=== PATIENT | male | born 1950 | race African-American/Black ===

== ENCOUNTER → 2020-05-21 | Outpatient (CLI) | payer OTHER ==
[2020-05-21 09:53] LABS: Urine WBC None Seen /hpf (0 - 3)
[2020-05-21 10:04] LABS: Urine Bacteria NONE SEEN /hpf (None Seen); Urine Blood Negative /uL (Negative); Urine Specific Gravity 1.019 (1.001-1.035)
[2020-05-21 10:18] LABS: Basophils # (auto) 0.1 10 ^3/uL (0-0.2); Basophils % (auto) 1.1 % (0.0-2.0); Eosinophils # (auto) 0.1 10 ^3/uL (0-0.8); Eosinophils % (auto) 2.5 % (0.0-7.0); Hematocrit 43.2 % (41.0-53.0); Hemoglobin 14.3 g/dL (13.5-17.5); Lymphocytes # (auto) 1.5 10 ^3/uL (0.4-5.4); Lymphocytes % (auto) 30.3 % (10.0-50.0); Mean Corpuscular Hemoglobin 30.3 pg (28.0-32.0); Mean Corpuscular Hgb Conc. 33.2 g/dL (32.0-36.0); Mean Corpuscular Volume 91.2 fL (80.0-100.0); Monocytes # (auto) 0.5 10 ^3/uL (0-1.3); Monocytes % (auto) 9.4 % (0.0-12.0); Neutrophils # (auto) 2.8 10 ^3/uL (1.6-8.6); Neutrophils % (auto) 56.7 % (37.0-80.0); Nucleated Red Blood Cells % 0.1 %; Platelet Count (auto) 278 10^3/uL (140-450); Red Blood Cells 4.73 10^6/uL (4.5-5.90); Red Cell Distribution Width 14.9 % (11.8-14.3); White Blood Cell 4.9 10^3/uL (4.4-10.8)
[2020-05-21 12:22] LABS: Albumin 3.4 g/dL (3.4-5.0); BUN/Creatinine Ratio 10.7; Calcium 8.6 mg/dL (8.5-10.1); Potassium 4.5 mmol/L (3.5-5.1); Total Protein 7.4 g/dL (6.4-8.2)
== END | disposition home or self-care (01) ==
LOC: LAB 09:38
PROVIDERS: ATTEND Internal Medicine
DX: N40.0 Benign prostatic hyperplasia without lower urinary tract symptoms (principal); I10 Essential (primary) hypertension; F17.200 Nicotine dependence, unspecified, uncomplicated
CPT/HCPCS: 36415; 80053; 80061; 81001; 84153; 84403; 85025

== ENCOUNTER → 2020-06-25 | Outpatient (CLI) | payer OTHER | END | disposition home or self-care (01) | LOC: LAB 15:21 | PROVIDERS: ATTEND Internal Medicine | DX: Z12.11 Encounter for screening for malignant neoplasm of colon (principal); I10 Essential (primary) hypertension | CPT/HCPCS: 36415; 82270; 83036 ==

== ENCOUNTER → 2020-07-24 | Outpatient (CLI) | payer OTHER ==
[2020-07-24 13:23] LABS: Albumin 3.7 g/dL (3.4-5.0)
[2020-07-24 13:28] LABS: Bilirubin, Direct 0.2 mg/dL (0-0.2); Bilirubin, Total 0.6 mg/dL (0.2-1.0)
== END | disposition home or self-care (01) ==
LOC: LAB 12:26
PROVIDERS: ATTEND Internal Medicine
DX: R73.03 Prediabetes (principal)
CPT/HCPCS: 36415; 80076; 82043

== ENCOUNTER → 2020-08-20 | Outpatient (CLI) | payer OTHER | END | disposition home or self-care (01) | LOC: LAB 14:29 | PROVIDERS: ATTEND Urology | DX: N40.0 Benign prostatic hyperplasia without lower urinary tract symptoms (principal); E29.1 Testicular hypofunction | CPT/HCPCS: 84153 ==

== ENCOUNTER 2024-10-14 15:48 | Inpatient (IN) | payer OTHER ==
[~2024-10-14] VITALS: Ht 190.5 cm; Wt 165.5 kg
--- NOTE | 2024-10-14 15:57 | ED.PDOC ---
SOB-HPI HPI Comments 74 year old male ADELINA presents to the ED with chief complaint of SOB. EMS reports that the patient has been experiencing SOB for the past few days, visiting his doctor today for the same complaint. EMS relays that the patient was just diagnosed today with CHF and COPD, not currently on any medication. EMS states patient's BP was noted to be 177/155 at the scene. Patient notes his SOB is worse on exertion. Patient denies any cough, chest pain, N/V, fever, or chills. Patient's BP at arrival was 177/115 with a oxygen saturation rate of 90%. Time Seen by MD: 15:54 Reviewed notes: Nurses Notes, Optimization Manager Notes, Medications, Allergies Information Source: Patient, Emergency Med Personnel Mode of Arrival: EMS Severity: Moderate Timing: Days Duration: Since onset Context: At Rest PE Risk Factors: None History of: COPD, CHF Prehospital treatment: None Modifying Factors: Nothing Associated Signs and Symptoms: None Past Medical History PAST MEDICAL HISTORY: CHF, COPD, HTN Surgical History: Denies all surgeries Family History Family History: Reviewed,noncontributory to illness Social History Smoker: Non-Smoker Alcohol: Denies ETOH Use Drugs: Denies Drug Use Lives In: Home Constitutional: denies: chills, diaphoresis, fatigue, fever, malaise, sweats, w eakness, others EENTM: denies: blurred vision, double vision, ear bleeding, ear discharge, ear drainage, ear pain, ear ringing, eye pain, eye redness, hearing loss, mouth pain, mouth swelling, nasal discharge, nose bleeding, nose congestion, nose pain, photophobia, tearing, throat pain, throat swelling, voice changes, others Respiratory: reports: shortness of breath, SOB with excertion; denies: cough, hemoptysis, orthopnea, SOB at rest, stridor, wheezing, others Cardiovascular: denies: chest pain, dizzy spells, diaphoresis, Dyspnea on exertion, edema, irregular heart beat, left arm pain, lightheadedness, palpitations, PND, syncope, others Gastrointestinal: denies: abdomen distended, abdominal pain, blood streaked bowels, constipated, diarrhea, dysphagia, difficulty swallowing, hematemesis, melena, nausea, poor appetite, poor fluid intake, rectal bleeding, rectal pain, vomiting, others Genitourinary: denies: burning, dysuria, flank pain, frequency, hematuria, incontinence, penile discharge, penile sore, pain, testicle pain, testicle swelling, urgency, others Neurological: denies: dizziness, fainting, headache, left sided numbness, left sided weakness, numbness, paresthesia, pre-existing deficit, right sided numbness, right sided weakness, seizure, speech problems, tingling, tremors, weakness, others Musculoskeletal: denies: back pain, gout, joint pain, joint swelling, muscle pain, muscle stiffness, neck pain, others Integumetry: denies: bruises, change in color, change in hair/nails, dryness, laceration, lesions, lumps, rash, wounds, others Allergic/Immunocompromised: denies: Difficulty Healing, Frequent Infections, Hives, Itching, others Hematologic/Lymphatic: denies: anemia, blood clots, easy bleeding, easy bruising, swollen glands, others Endocrine: denies: excessive hunger, excessive sweating, excessive thirst, excessive urination, flushing, intolerance to cold, intolerance to heat, unexplained weight gain, unexplained weight loss, others Psychiatric: denies: anxiety, bipolar disorder, depression, hopeless, panic disorder, schizophrenia, sleepless, suicidal, others All Other Systems: Reviewed and Negative Physical Exam General Appearance: Moderate Distress (Kiqn-on-ramdyfeb distress due to shortness a breath concerns as well as concerns about blood pressure issues.), Normal HEENT: Normal ENT Inspection, Pharynx Normal, TMs Normal Neck: Full Range of Motion, Non-Tender, Normal, Normal Inspection Respiratory: Chest Non-Tender, Lungs Clear, No Accessory Muscle Use, No Res piratory Distress, Normal Breath Sounds, Other (Auscultation bilateral lung vincent was relatively unremarkable.) Cardiovascular: No Edema, No JVD, No Murmur, No Gallop, Normal Peripheral Pulses, Regular Rate/Rhythm Breast Exam: Deferred Gastrointestinal: No Organomegaly, Non Tender, No Pulsatile Mass, Normal Bowel Sounds, Soft Genitalia: Deferred Pelvic: Deferred Rectal: Deferred Extremities: No calf tenderness, Normal capillary refill, Normal inspection, Normal range of motion, Non-tender, No pedal edema Neurologic: Alert, No Motor Deficits, Normal Affect, Normal Mood, No Sensory Deficits Cerebellar Function: Normal Reflexes: Normal Skin: Dry, Normal Color, Warm Lymphatic: No Adenopathy Was a procedure done? Was a procedure done?: No Differential Dx Differential Diagnosis: Asthma, Bronchitis, CHF, COPD, Hypertension, Hyponatremia, Myocardial infarction, Pneumonia, Pulmonary Embolism, Respiratory Distress, URI X-Ray, Labs, Meds, VS Vital Signs Date Time Temp Pulse Resp B/P (MAP) Pulse Ox O2 Delivery O2 Flow Rate FiO2 10/14/24 18:16 158/94 10/14/24 18:06 85 16 95 Room Air 10/14/24 18:06 98.0 85 16 158/94 (115) 95 98.0 10/14/24 17:59 158/94 10/14/24 16:59 170/108 10/14/24 16:25 90 10/14/24 16:22 20 98 Room Air* 0 21 10/14/24 15:48 98.9 90 18 177/115 (135) 90 98.9 10/14/24 15:48 18 90 Room Air 0 Lab Test 10/14/24 20:10 10/14/24 18:00 10/14/24 16:30 10/14/24 16:15 Range/Units Troponin I High Sensitivity 30 32 37 </=54 ng/L White Blood Count 9.1 4.4-10.8 10^3/uL Red Blood Count 4.74 4.5-5.90 10^6/uL Hemoglobin 14.2 13.5-17.5 g/dL Hematocrit 43.2 41.0-53.0 % Mean Corpuscular Volume 91.1 80.0-100.0 fL Mean Corpuscular Hemoglobin 29.9 28.0-32.0 pg Mean Corpuscular Hemoglobin Concent 32.8 32.0-36.0 g/dL Red Cell Distribution Width 15.7 H 11.8-14.3 % Platelet Count 369 140-450 10^3/uL Mean Platelet Volume 6.7 L 6.9-10.8 fL Neutrophils (%) (Auto) 75.3 37.0-80.0 % Lymphocytes (%) (Auto) 17.0 10.0-50.0 % Monocytes (%) (Auto) 5.6 0.0-12.0 % Eosinophils (%) (Auto) 1.7 0.0-7.0 % Basophils (%) (Auto) 0.4 0.0-2.0 % Neutrophils # (Auto) 6.9 1.6-8.6 10 ^3/uL Lymphocytes # (Auto) 1.5 0.4-5.4 10 ^3/uL Monocytes # (Auto) 0.5 0-1.3 10 ^3/uL Eosinophils # (Auto) 0.2 0-0.8 10 ^3/uL Basophils # (Auto) 0 0-0.2 10 ^3/uL Nucleated Red Blood Cells 0.1 % Sodium Level 138 136-145 mmol/L Potassium Level 4.7 3.5-5.1 mmol/L Chloride Level 104 98-107 mmol/L Carbon Dioxide Level 25 20-31 mmol/L Anion Gap 9 5-15 Blood Urea Nitrogen 27 H 9-23 mg/dL Creatinine 1.26 0.700-1.30 mg/dL Glomerular Filtration Rate Calc 61 >90 mL/min BUN/Creatinine Ratio 21.4 H 10.0-20.0 Serum Glucose 97 74-106 mg/dL Lactic Acid Level 1.7 0.4-2.0 mmol/L Calcium Level 9.6 8.7-10.4 mg/dL Total Bilirubin 0.3 0.2-1.0 mg/dL Aspartate Amino Transferase (AST) 18 13-40 U/L Alanine Aminotransferase (ALT) 14 7-40 U/L Alkaline Phosphatase 143 H 46-116 U/L B-Type Natriuretic Peptide 149.34 0-100 pg/mL Total Protein 8.2 5.7-8.2 g/dL Albumin 4.5 3.2-4.8 g/dL Lipase 44 12-53 U/L Urine Color Colorless Yellow Urine Clarity Clear Clear Urine pH 7.5 5.0-9.0 Urine Specific [place] 1.011 1.001-1.035 Urine Protein Negative Negative Urine Ketones Negative Negative Urine Blood Negative Negative /uL Urine Nitrite Negative Negative Urine Bilirubin Negative Negative Urine Urobilinogen Normal Negative mg/dL Urine Leukocyte Esterase Negative Negative /uL Urine RBC None seen 0 - 3 /hpf Urine Microscopic WBC 1 0-3 /HPF Urine Squamous Epithelial Cells None seen <5 /hpf Urine Bacteria None seen None Seen /hpf Urine Glucose Normal Normal mg/dL Current Medications Medications (Trade) Dose Ordered Sig/Liudmila Route Start Time Stop Time Status Last Admin Albuterol (Ventolin Medneb) 5 mg ONCE ONCE NEB 10/14/24 16:00 10/14/24 16:01 DC 10/14/24 16:22 Ipratropium [place] (Atrovent Medneb) 0.5 mg ONCE ONCE NEB 10/14/24 16:00 10/14/24 16:01 DC 10/14/24 16:22 Dexamethasone Sodium Phosphate 10 mg/Dextrose 51 ml @ 204 mls/hr ONCE ONCE IV 10/14/24 16:00 10/14/24 16:14 DC 10/14/24 17:00 Clonidine HCl (Catapres Tablet) 0.2 mg ONCE ONCE PO 10/14/24 16:00 10/14/24 16:01 DC 10/14/24 16:59 Clonidine HCl (Catapres Tablet) 0.1 mg ONCE ONCE PO 10/14/24 18:15 10/14/24 18:16 DC 10/14/24 18:16 X-Ray, Labs, Meds, VS Comment All studies performed the ED today were evaluated by me personally. Serum results were relatively unremarkable for any systemic process. Chest x-ray did not show signs of consolidation and EKG revealed an ectopic atrial rhythm with a rate of 90. Ventricular premature complex, aberrant conduction of SP complex as well as borderline prolonged QT interval. ID interval 162 and QT interval of 395. Based on patient's recent statements, this patient may require additional evaluation to establish the prior diagnosis of CHF and COPD. Patient was in hypertensive urgency in the least at arrival and therefore, should receive a cardiac evaluation as well as a review of medication concerns and continued observe of of O2 saturation needs. Time of 1ST Reevaluation: 21:12 Reevaluation 1ST: Improved Consultation: PCP, Cardiology, Pulmonary Patient Education/Counseling: Diagnosis, Treatment Family Education/Counseling: Diagnosis, Treatment, No Family Present Departure 1 Departure Time of Disposition: 21:13 Impression: Primary Impression: Shortness of breath Additional Impressions: Hypertensive urgency Congestive heart failure Disposition: 09 ADMITTED INPATIENT Condition: Stable Discharged With: Self Critical Care Note Critical Care Time?: No Stability Stability form required: No Heart Score Heart Score: Heart Score Response (Comments) Value History N/A 0 EKG N/A 0 Age N/A 0 Risk Factors N/A 0 Troponin N/A 0 Total 0 I personally scribed for MANA IGLESIAS PAC ([email or web address]) on 10/14/24 at 15:57. Electronically submitted by Arya Neal ([email or web address]). MANA IGLESIAS [facility] Oct 14, 2024 15:57
[2024-10-14] MEDS: IPRATROPIUM BROM 0.5 MG/2.5ML INH SOL NEB ONE (16:22)
[2024-10-14] MEDS: ALBUTEROL SULF 2.5 MG/0.5ML(0.5%) NEB SOLN NEB ONE (16:22)
[2024-10-14 16:28] LABS: Urine Bacteria None Seen /hpf (None Seen)
--- NOTE | 2024-10-14 16:46 | DVH ---
EXAM: XR Chest, 1 View CLINICAL INDICATION: Shortness of breath TECHNIQUE: Frontal view of the chest. COMPARISON: None FINDINGS: LUNGS AND PLEURAL SPACES: Unremarkable. No consolidation. No pneumothorax. HEART: Unremarkable. No cardiomegaly. MEDIASTINUM: Unremarkable. Normal mediastinal contour. BONES/JOINTS: Unremarkable. No acute fracture. OTHER FINDINGS: . None. IMPRESSION: No acute cardiopulmonary process.
[2024-10-14] MEDS: cloNIDine HCL 0.1 MG TAB PO ONE ×2 (16:59→18:16)
[2024-10-14] MEDS: DexAMETHasone INJECTION 10 MG in D5W 5% 50 ML IV ONE (17:00)
[2024-10-14 17:05] LABS: Basophils # (auto) 0 10 ^3/uL (0-0.2); Basophils % (auto) 0.4 % (0.0-2.0); Eosinophils # (auto) 0.2 10 ^3/uL (0-0.8); Eosinophils % (auto) 1.7 % (0.0-7.0); Hematocrit 43.2 % (41.0-53.0); Hemoglobin 14.2 g/dL (13.5-17.5); Lymphocytes # (auto) 1.5 10 ^3/uL (0.4-5.4); Mean Corpuscular Hemoglobin 29.9 pg (28.0-32.0); Mean Corpuscular Hgb Conc. 32.8 g/dL (32.0-36.0); Mean Corpuscular Volume 91.1 fL (80.0-100.0); Monocytes # (auto) 0.5 10 ^3/uL (0-1.3); Monocytes % (auto) 5.6 % (0.0-12.0); Neutrophils # (auto) 6.9 10 ^3/uL (1.6-8.6); Neutrophils % (auto) 75.3 % (37.0-80.0); Nucleated Red Blood Cells % 0.1 %; Platelet Count (auto) 369 10^3/uL (140-450); Red Blood Cells 4.74 10^6/uL (4.5-5.90); Red Cell Distribution Width 15.7 % (11.8-14.3); White Blood Cell 9.1 10^3/uL (4.4-10.8)
[2024-10-14 17:19] LABS: Urine Blood Negative /uL (Negative); Urine Clarity Clear (Clear); Urine Color Colorless (Yellow); Urine Protein, UAD Negative (Negative); Urine Specific Gravity 1.011 (1.001-1.035); Urine Squamous Epithelial Cell None Seen /hpf (<5); Urine Urobilinogen Normal (Negative); Urine WBC 1 /HPF (0-3); Urine pH 7.5 (5.0-9.0)
[2024-10-14 17:33] LABS: Alanine Aminotransferase 14 U/L (7-40); Albumin 4.5 g/dL (3.2-4.8); Anion Gap 9 (5-15); Aspartate Aminotransferase 18 U/L (13-40); BUN/Creatinine Ratio 21.4 (10.0-20.0); Calcium 9.6 mg/dL (8.7-10.4); Carbon Dioxide 25 mmol/L (20-31); Chloride 104 mmol/L (98-107); Glucose 97 mg/dL (74-106); Lipase 44 U/L (12-53); Potassium 4.7 mmol/L (3.5-5.1); Sodium 138 mmol/L (136-145); Total Protein 8.2 g/dL (5.7-8.2)
[2024-10-14 17:34] LABS: Bilirubin, Total 0.3 mg/dL (0.2-1.0)
[2024-10-14 17:35] LABS: Alkaline Phosphatase 143 U/L (46-116); Blood Urea Nitrogen 27 mg/dL (9-23)
--- NOTE | 2024-10-14 19:01 | ECG ---
[facility] Test Date: 2024-10-14 Test Time: 16:22:02 Pat Name: DAJA DIOR Department: ED Room: 0217T Gender: M Program Administrator: TANNER : 1950 Requested By: MANA IGLESIAS Order Number: [id number] Reading MD: Adrián Wilcox Measurements Intervals [place] Rate: 90 P: -76 ME: 162 QRS: 62 QRSD: 91 T: 44 QT: 395 QTc: 484 Interpretive Statements Ectopic atrial rhythm Ventricular premature complex Aberrant conduction of SV complex(es) Borderline prolonged QT interval Electronically Signed On 10-19-2024 12:39:09 PDT by Adrián Wilcox Please click the below link to view image of tracing.
[2024-10-14] MEDS ORDERED: ACETAMINOPHEN 325 MG TAB PO PRN (22:00)
[2024-10-14] MEDS ORDERED: ONDANSETRON HCL 4 MG/2 ML VIAL IV PRN (22:00)
[2024-10-14] MEDS: LISINOPRIL 5 MG TAB PO ONE (22:00)
[2024-10-14 22:19] LABS: Triglycerides 62 mg/dL (< 150)
[2024-10-14 22:21] LABS: Cholesterol 195 mg/dL (< 200); HDL Cholesterol 74 mg/dL (40-59); LDL Cholesterol 106 mg/dL (< 100)
[2024-10-14 23:02] VITALS: BP 158/94; PULSE 85; RESP 16; TEMP 98; O2SAT 95
[2024-10-14 23:09] VITALS: O2SAT 95
[2024-10-14 23:31] VITALS: PULSE 99
[2024-10-15] VITALS (12 sets, daily range): BP systolic 118–163; BP diastolic 77–101; PULSE 59–108; RESP 15–18; TEMP 97.2–98.7; O2SAT 90–99
[2024-10-15] MEDS: cloNIDine HCL 0.1 MG TAB PO ONE (01:20)
--- NOTE | 2024-10-15 01:41 | DVHHP2 ---
History of Present Illness Reason for Visit: Shortness for breath History of Present Illness 74-year-old male presents for evaluation of shortness for breath. Patient endorses a three day history of shortness for breath with mild exertion. Denies cough or fever. Denies chest pain or palpitations. Patient reports a history o f hypertension and COPD. Patient reports not currently taking any medications. Past Medical History Hypertension and COPD Past Surgical History Denies Family History Noncontributory Smoke: No ALCOHOL: none Drugs: None Lives: with Family Review of Systems Review of Systems Review of systems are currently negative otherwise addressed in HPI. Allergies: Coded Allergies: NO KNOWN ALLERGIES (Unverified , 10/14/24) Medications Current Medications Medications Dose Ordered Sig/Liudmila Route Start Time Stop Time Status Last Admin Dose Admin Lisinopril 10 mg DAILY PO 10/15/24 10:00 Albuterol 2.5 mg Q6HPRN PRN NEB 10/14/24 22:00 Ipratropium [place] 0.5 mg Q6HPRN PRN NEB 10/14/24 22:00 Ondansetron HCl 4 mg Q4HP PRN IV 10/14/24 22:00 Acetaminophen 650 mg Q6HP PRN PO 10/14/24 22:00 Exam Vital Signs Vital Signs Date Time Temp Pulse Resp B/P (MAP) Pulse Ox O2 Delivery O2 Flow Rate FiO2 10/15/24 01:20 163/103 10/15/24 00:15 97.2 101 16 98 97.2 10/14/24 23:31 Nasal Cannula* 3 32 Exam Gen: 74-year-old male in mild distress Skin: Warm, dry, normal color and texture, no rash. HEENT: Normocephalic atraumatic, mucous membranes moist and pink. Neck: Cervical and supraclavicular nodes normal without enlargement, trachea is midline, thyroid gland is normal without masses. Pulmonary: Diminished breath sounds bilaterally Cardiac: Regular rate and rhythm. No murmur Abdomen: Soft, nontender, nondistended, bowel sounds present all 4 quadrants, no guarding, no rigidity, no organomegaly. Extremities: No cyanosis, clubbing, no edema Neuro: Cranial nerves II through XII grossly intact, normal affect and speech, no focal motor deficits. Labs/Xrays ORDERING PHYSICIAN: MANA IGLESIAS PAC PROCEDURE(s): CXRP - CHEST PORTABLE REASON: Shortness of breath ORDER NUMBER(s): [id number], ACCESSION NUMBER(s): [id number] EXAM: XR Chest, 1 View CLINICAL INDICATION: Shortness of breath TECHNIQUE: Frontal view of the chest. COMPARISON: None FINDINGS: LUNGS AND PLEURAL SPACES: Unremarkable. No consolidation. No pneumothorax. HEART: Unremarkable. No cardiomegaly. MEDIASTINUM: Unremarkable. Normal mediastinal contour. BONES/JOINTS: Unremarkable. No acute fracture. OTHER FINDINGS: . None. IMPRESSION: No acute cardiopulmonary process. Labs Test 10/14/24 20:10 10/14/24 18:00 10/14/24 16:30 10/14/24 16:15 Range/Units Troponin I High Sensitivity 30 </=54 ng/L Triglycerides Level 62 < 150 mg/dL Cholesterol Level 195 < 200 mg/dL LDL Cholesterol 106 H < 100 mg/dL HDL Cholesterol 74 H 40-59 mg/dL Thyroid Stimulating Hormone (TSH) 1.75 0.55-4.78 uIU/mL White Blood Count 9.1 4.4-10.8 10^3/uL Red Blood Count 4.74 4.5-5.90 10^6/uL Hemoglobin 14.2 13.5-17.5 g/dL Hematocrit 43.2 41.0-53.0 % Mean Corpuscular Volume 91.1 80.0-100.0 fL Mean Corpuscular Hemoglobin 29.9 28.0-32.0 pg Mean Corpuscular Hemoglobin Concent 32.8 32.0-36.0 g/dL Red Cell Distribution Width 15.7 H 11.8-14.3 % Platelet Count 369 140-450 10^3/uL Mean Platelet Volume 6.7 L 6.9-10.8 fL Neutrophils (%) (Auto) 75.3 37.0-80.0 % Lymphocytes (%) (Auto) 17.0 10.0-50.0 % Monocytes (%) (Auto) 5.6 0.0-12.0 % Eosinophils (%) (Auto) 1.7 0.0-7.0 % Basophils (%) (Auto) 0.4 0.0-2.0 % Neutrophils # (Auto) 6.9 1.6-8.6 10 ^3/uL Lymphocytes # (Auto) 1.5 0.4-5.4 10 ^3/uL Monocytes # (Auto) 0.5 0-1.3 10 ^3/uL Eosinophils # (Auto) 0.2 0-0.8 10 ^3/uL Basophils # (Auto) 0 0-0.2 10 ^3/uL Nucleated Red Blood Cells 0.1 % Sodium Level 138 136-145 mmol/L Potassium Level 4.7 3.5-5.1 mmol/L Chloride Level 104 98-107 mmol/L Carbon Dioxide Level 25 20-31 mmol/L Anion Gap 9 5-15 Blood Urea Nitrogen 27 H 9-23 mg/dL Creatinine 1.26 0.700-1.30 mg/dL Glomerular Filtration Rate Calc 61 >90 mL/min BUN/Creatinine Ratio 21.4 H 10.0-20.0 Serum Glucose 97 74-106 mg/dL Lactic Acid Level 1.7 0.4-2.0 mmol/L Calcium Level 9.6 8.7-10.4 mg/dL Total Bilirubin 0.3 0.2-1.0 mg/dL Aspartate Amino Transferase (AST) 18 13-40 U/L Alanine Aminotransferase (ALT) 14 7-40 U/L Alkaline Phosphatase 143 H 46-116 U/L B-Type Natriuretic Peptide 149.34 0-100 pg/mL Total Protein 8.2 5.7-8.2 g/dL Albumin 4.5 3.2-4.8 g/dL Lipase 44 12-53 U/L Urine Color Colorless Yellow Urine Clarity Clear Clear Urine pH 7.5 5.0-9.0 Urine Specific [place] 1.011 1.001-1.035 Urine Protein Negative Negative Urine Ketones Negative Negative Urine Blood Negative Negative /uL Urine Nitrite Negative Negative Urine Bilirubin Negative Negative Urine Urobilinogen Normal Negative mg/dL Urine Leukocyte Esterase Negative Negative /uL Urine RBC None seen 0 - 3 /hpf Urine Microscopic WBC 1 0-3 /HPF Urine Squamous Epithelial Cells None seen <5 /hpf Urine Bacteria None seen None Seen /hpf Urine Glucose Normal Normal mg/dL Assessment/Plan Assessment/Plan Assessment Acute on chronic respiratory failure COPD Accelerated hypertension Noncompliant Admit the patient to Med surge to the hospitalist Med nebs Resume home medications Continue treatment per orders. Plan discussed with: Patient My Orders Orders - SUZANNA GRIMALDO Procedure Category Date Status Time Lisinopril Tablet PHA 10/15/24 In Process (Zestril Tablet) 10:00 Albuterol Medneb PHA 10/14/24 In Process (Ventolin Medneb) 22:00 Ipratropium Medneb PHA 10/14/24 In Process (Atrovent Medneb) 22:00 Admit ADMIT 10/14/24 Transmitted 21:47 Ondansetron Hcl PHA 10/14/24 In Process (Zofran) 22:00 Cardiac DIET 10/15/24 Transmitted Diet-2gna,Lofat,Lochol Breakfast Echo 2d Mode Cardiac US 10/14/24 Logged DOP 21:47 Condition: Stable PAOLA 10/14/24 In Process 21:47 Acetaminophen Tablet PHA 10/14/24 In Process (Tylenol Tablet) 22:00 Bedrest With Bathroom PAOLA 10/14/24 In Process Privileg 21:47 Basic Metabolic Panel LAB 10/15/24 Logged 04:00 Atorvastatin (Lipitor) PHA 10/15/24 Verified 22:00 Date of Service: Oct 14, 2024 Billing Provider: SUZANNA GRIMALDO Common Visit Codes: [id number] INP/OBS CARE (HIGH) SUZANNA GRIMALDO Oct 15, 2024 01:41
[2024-10-15 06:23] LABS: Chloride 107 mmol/L (98-107); Sodium 141 mmol/L (136-145)
[2024-10-15 06:24] LABS: Anion Gap 10 (5-15); Carbon Dioxide 24 mmol/L (20-31)
[2024-10-15 06:25] LABS: Calcium 9.3 mg/dL (8.7-10.4)
[2024-10-15 06:29] LABS: BUN/Creatinine Ratio 24.3 (10.0-20.0)
[2024-10-15 06:30] LABS: Blood Urea Nitrogen 36 mg/dL (9-23); Glucose 115 mg/dL (74-106)
[2024-10-15] MEDS: LISINOPRIL 5 MG TAB PO SCH (09:13)
[2024-10-15] MEDS: ALBUTEROL SULF 2.5 MG/0.5ML(0.5%) NEB SOLN NEB PRN (09:27)
[2024-10-15] MEDS: IPRATROPIUM BROM 0.5 MG/2.5ML INH SOL NEB PRN (09:28)
--- NOTE | 2024-10-15 12:53 | DVHPN2 ---
Subjective The patient seen and examined at bedside. The patient still wheezing and had shortness for breath. Reviewed: Care Plan, H&P, Labs, Medications, Previous Orders, Radiology Changes from previous H/P or p: No Changes Objective Vitals Vital Signs Date Time Temp Pulse Resp B/P (MAP) Pulse Ox O2 Delivery O2 Flow Rate FiO2 10/15/24 09:34 97 18 98 10/15/24 09:30 Nasal Cannula* 3 32 10/15/24 09:13 142/100 10/15/24 09:00 98.2 98.2 Intake/Output Intake and Output 10/15/24 07:00 Intake Total 200 ml Balance 200 ml Intake Oral 200 ml # Voids 3 # Bowel Movements 2 General Appearance: Alert, Oriented X3, Cooperative, No acute distress HEENT: Atraumatic, PERRLA, EOMI, Mucous membr. moist/pink Neck: Supple Lungs: Clear to auscultation, Normal air movement Cardiovascular: Regular rate, Normal S1, Normal S2, No murmurs, Gallops Abdomen: No Normal bowel sounds; Soft, No tenderness Neuro: Cranial nerves 3-12 NL Psych/Mental Status: Mental status NL Medications Current Medications Medications Dose Ordered Sig/Liudmila Route Start Time Stop Time Status Last Admin Dose Admin Lisinopril 10 mg DAILY PO 10/15/24 10:00 10/15/24 09:13 10 MG Albuterol 2.5 mg Q6HPRN PRN NEB 10/14/24 22:00 10/15/24 09:27 2.5 MG Ipratropium [place] 0.5 mg Q6HPRN PRN NEB 10/14/24 22:00 10/15/24 09:28 0.5 MG Ondansetron HCl 4 mg Q4HP PRN IV 10/14/24 22:00 Acetaminophen 650 mg Q6HP PRN PO 10/14/24 22:00 Atorvastatin Calcium 10 mg HS PO 10/15/24 22:00 Laboratory Results Laboratory Tests 10/14/24 16:30 10/15/24 05:44 Chemistry Test 10/14/24 16:30 10/15/24 05:44 Albumin 4.5 g/dL (3.2-4.8) Calcium Level 9.6 mg/dL (8.7-10.4) 9.3 mg/dL (8.7-10.4) Total Protein 8.2 g/dL (5.7-8.2) Lipid panel Test 10/14/24 16:30 10/14/24 18:00 Lipase 44 U/L (12-53) Cholesterol Level 195 mg/dL (< 200) HDL Cholesterol 74 mg/dL (40-59) H Triglycerides Level 62 mg/dL (< 150) Cardiac Markers Test 10/14/24 16:30 B-Type Natriuretic Peptide 149.34 pg/mL (0-100) LFT Test 10/14/24 16:30 Alanine Aminotransferase (ALT) 14 U/L (7-40) Alkaline Phosphatase 143 U/L (46-116) H Aspartate Amino Transferase (AST) 18 U/L (13-40) Total Bilirubin 0.3 mg/dL (0.2-1.0) HgA1c, TSH Test 10/14/24 18:00 Thyroid Stimulating Hormone (TSH) 1.75 uIU/mL (0.55-4.78) Urinalysis Test 10/14/24 16:15 Urine Color Colorless (Yellow) Urine Clarity Clear (Clear) Urine pH 7.5 (5.0-9.0) Urine Specific [place] 1.011 (1.001-1.035) Urine Protein Negative (Negative) Urine Ketones Negative (Negative) Urine Blood Negative /uL (Negative) Urine Nitrite Negative (Negative) Urine Bilirubin Negative (Negative) Urine Urobilinogen Normal mg/dL (Negative) Urine Leukocyte Esterase Negative /uL (Negative) Urine RBC None seen /hpf (0 - 3) Urine Microscopic WBC 1 /HPF (0-3) Urine Squamous Epithelial Cells None seen /hpf (<5) Urine Bacteria None seen /hpf (None Seen) Urine Glucose Normal mg/dL (Normal) Labs and/or images reviewed: Labs reviewed by me Assessment/Plan Assessment/Plan Acute on chronic respiratory failure COPD Accelerated hypertension Noncompliant Continuing current management. Continuing with nebulizer. I am going to add Solumedrol 60mg IV q 8h and Rocephin 1gm IV qday. Continuing nebulizer Continuing lisinopril This medical document was created using an electronic medical record system with [employer]edim[employer] direct computerized dictation system. Although this document has been carefully reviewed, there may still be some phonetic and typographical errors. These areas are purely typographical due to imperfections of the software programs, and do not reflect any compromise in the patient's medical care. Plan discussed with: Patient Date of Service: Oct 15, 2024 Billing Provider: LIANA NOGUEIRA MD Common Visit Codes: [id number] INP/OBS CARE(HIGH) LIANA NOGUEIRA MD Oct 15, 2024 12:53
[2024-10-15] MEDS ORDERED: NITROGLYCERIN 0.4 MG SL TAB SL PRN ×2 (21:00)
[2024-10-15] MEDS ORDERED: MORPHINE SULFATE INJ 2 MG/ml SYRG IV PRN (21:00)
[2024-10-15] MEDS: MORPHINE SULFATE INJ 2 MG/ml SYRG IV PRN (21:40)
[2024-10-15] MEDS: SODIUM CHLOR 0.9% PF (SALINE LOCK) 10ML VIAL/SYR IV SCH (22:00)
[2024-10-15] MEDS: ATORVASTATIN 20 MG TAB PO SCH (22:42)
--- NOTE | 2024-10-15 23:15 | DVHSR ---
APPROVED REPORT EXAM: LIMITED Two-dimensional and M-mode echocardiogram with Doppler and color Doppler. Blood Pressure: 18/77 mmHg INDICATION ef RISK FACTORS Height: 6'3, Weight: 165 DIMENSIONS LVDd4.4 (3.8-5.7cm)LA (2D)3.9 (1.9-4.0cm)Aortic Root3.8 (2.0-3.7cm) LVDs3.2 (2.5-4.0cm)LA (MM) (1.9-4.0cm)Aortic Cusp Exc1.6 (1.5-2.0cm) EF (%) 50.0 (55-70%)Rt. Atrium4.5 (1.9-4.0cm)Asc. Aorta cm IVSd0.8 (0.7-1.1cm)RV (D)4.7 (1.8-2.4cm) PWd0.9 (0.7-1.1cm) Mitral Valve MitralMitral Stenosis E wave0.50m/sMV Mean GR.mmHg A wave1.04m/sMV Peak GR.mmHg E/A ratio0.52D MVAcm2 DECEL [id number] 1/2 [place] Aortic Valve Aortic ValveAortic Stenosis V11.00m/Addie Mean GR.mmHg V21.12m/Addie Peak GR.5mmHg LVOT Diameter2.3 (1.8-2.4cm)Doppler AVA3.71cm2 Tricuspid Valve TR Velocity3.56m/s [id number] Conclusion MILD LVH AND MILD LV DIASTOLIC DYSFUNCTION LV EF IS 65% AND IS NORMAL MODERATELY CALCIFIED AORTIC LEAFLETS IT IS CALCIFIED AORTIC LEAFLETS BUT NO STENOSIS NORMAL MV,TV AND PV NO EFFUSION MODERATELY DILATED RV AND RA NORMAL RV FUNCTION MODERATE DEGREE PULMONARY HYPERTENSION RVSP IS 54 MM OF HG AND IS MODERATELY HIGH
[2024-10-16] VITALS (15 sets, daily range): BP systolic 126–142; BP diastolic 76–95; PULSE 71–113; RESP 16–22; TEMP 97.5–98.5; O2SAT 91–100
[2024-10-16] MEDS: cefTRIAXone 1GM/50ML D5W 50 ML IV SCH (10:28)
[2024-10-16] MEDS: AZITHROMYCIN 500MG/ 250ML 250 ML IV SCH (10:29)
--- NOTE | 2024-10-16 22:50 | DVHPN2 ---
Subjective The patient seen and examined at bedside. The patient still wheezing and had shortness for breath. Reviewed: Care Plan, H&P, Labs, Medications, Previous Orders, Radiology Changes from previous H/P or p: No Changes Objective Vitals Vital Signs Date Time Temp Pulse Resp B/P (MAP) Pulse Ox O2 Delivery O2 Flow Rate FiO2 10/16/24 21:00 98.3 109 16 126/76 (93) 93 98.3 10/16/24 19:48 Nasal Cannula* 5 40 Intake/Output Intake and Output 10/16/24 07:00 Intake Total 1000 ml Balance 1000 ml Intake Oral 1000 ml # Voids 5 General Appearance: Alert, Oriented X3, Cooperative, No acute distress HEENT: Atraumatic, PERRLA, EOMI, Mucous membr. moist/pink Neck: Supple Lungs: Clear to auscultation, Normal air movement Cardiovascular: Regular rate, Normal S1, Normal S2, No murmurs, Gallops Abdomen: No Normal bowel sounds; Soft, No tenderness Neuro: Cranial nerves 3-12 NL Psych/Mental Status: Mental status NL Medications Current Medications Medications Dose Ordered Sig/Liudmila Route Start Time Stop Time Status Last Admin Dose Admin Lisinopril 10 mg DAILY PO 10/15/24 10:00 10/16/24 08:53 10 MG Albuterol 2.5 mg Q6HPRN PRN NEB 10/14/24 22:00 10/16/24 19:48 2.5 MG Ipratropium [place] 0.5 mg Q6HPRN PRN NEB 10/14/24 22:00 10/16/24 19:48 0.5 MG Ondansetron HCl 4 mg Q4HP PRN IV 10/14/24 22:00 Acetaminophen 650 mg Q6HP PRN PO 10/14/24 22:00 Atorvastatin Calcium 10 mg HS PO 10/15/24 22:00 10/16/24 21:36 10 MG Morphine Sulfate 2 mg Q30M PRN IV 10/15/24 21:00 10/15/24 21:40 2 MG Sodium Chloride 10 ml Q8HR IV 10/15/24 22:00 10/16/24 21:36 10 ML Nitroglycerin 0.4 mg Q5MINP PRN SL 10/15/24 21:00 Ceftriaxone Sodium 50 ml @ 100 mls/hr DAILY@09 IV 10/16/24 10:00 4/20/25 10:28 100 MLS/HR Azithromycin 250 ml @ 125 mls/hr DAILY IV 10/16/24 10:00 10/16/24 10:29 125 MLS/HR Laboratory Results Laboratory Tests 10/14/24 16:30 10/15/24 05:44 Urinalysis Test 10/14/24 16:15 Urine Color Colorless (Yellow) Urine Clarity Clear (Clear) Urine pH 7.5 (5.0-9.0) Urine Specific [place] 1.011 (1.001-1.035) Urine Protein Negative (Negative) Urine Ketones Negative (Negative) Urine Blood Negative /uL (Negative) Urine Nitrite Negative (Negative) Urine Bilirubin Negative (Negative) Urine Urobilinogen Normal mg/dL (Negative) Urine Leukocyte Esterase Negative /uL (Negative) Urine RBC None seen /hpf (0 - 3) Urine Microscopic WBC 1 /HPF (0-3) Urine Squamous Epithelial Cells None seen /hpf (<5) Urine Bacteria None seen /hpf (None Seen) Urine Glucose Normal mg/dL (Normal) Labs and/or images reviewed: Labs reviewed by me Assessment/Plan Assessment/Plan Acute on chronic respiratory failure COPD Accelerated hypertension Noncompliant Continuing current management. Continuing with nebulizer. Continuing Solumedrol 60mg IV q 8h and Rocephin 1gm IV qday. Continuing nebulizer Continuing lisinopril This medical document was created using an electronic medical record system with [employer] direct computerized dictation system. Although this document has been carefully reviewed, there may still be some phonetic and typographical errors. These areas are purely typographical due to imperfections of the software programs, and do not reflect any compromise in the patient's medical care. Plan discussed with: Patient My Orders Orders - LIANA NOGUEIRA MD Procedure Category Date Status Time Ceftriaxone 1gm/50ml PHA 10/16/24 In Process D5w (Rocephin) 10:00 Azithromycin 500mg/ PHA 10/16/24 In Process 250ml (Zithromax 50 10:00 Date of Service: Oct 16, 2024 Billing Provider: LIANA NOGUEIRA MD Common Visit Codes: [id number] INP/OBS CARE(HIGH) LIANA NOGUEIRA MD Oct 16, 2024 22:50
[2024-10-17] VITALS (14 sets, daily range): BP systolic 128–151; BP diastolic 87–98; PULSE 64–113; RESP 16–18; TEMP 36.2; O2SAT 96–99
--- NOTE | 2024-10-17 10:44 | ECG ---
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
--- NOTE | 2024-10-17 11:45 | DVHDS2 ---
Discharge Summary Date of Admission Oct 14, 2024 at 21:47 Labs/Diagnostic Data: Laboratory Results Test 10/15/24 05:44 10/14/24 20:10 10/14/24 18:00 10/14/24 16:30 Sodium Level 141 mmol/L (136-145) Potassium Level 5.0 mmol/L (3.5-5.1) Chloride Level 107 mmol/L (98-107) Carbon Dioxide Level 24 mmol/L (20-31) Anion Gap 10 (5-15) Blood Urea Nitrogen 36 mg/dL (9-23) Creatinine 1.48 mg/dL (0.700-1.30) Glomerular Filtration Rate Calc 50 mL/min (>90) BUN/Creatinine Ratio 24.3 (10.0-20.0) Serum Glucose 115 mg/dL (74-106) Calcium Level 9.3 mg/dL (8.7-10.4) Troponin I High Sensitivity 30 ng/L (</=54) Triglycerides Level 62 mg/dL (< 150) Cholesterol Level 195 mg/dL (< 200) LDL Cholesterol 106 mg/dL (< 100) HDL Cholesterol 74 mg/dL (40-59) Thyroid Stimulating Hormone (TSH) 1.75 uIU/mL (0.55-4.78) White Blood Count 9.1 10^3/uL (4.4-10.8) Red Blood Count 4.74 10^6/uL (4.5-5.90) Hemoglobin 14.2 g/dL (13.5-17.5) Hematocrit 43.2 % (41.0-53.0) Mean Corpuscular Volume 91.1 fL (80.0-100.0) Mean Corpuscular Hemoglobin 29.9 pg (28.0-32.0) Mean Corpuscular Hemoglobin Concent 32.8 g/dL (32.0-36.0) Red Cell Distribution Width 15.7 % (11.8-14.3) Platelet Count 369 10^3/uL (140-450) Mean Platelet Volume 6.7 fL (6.9-10.8) Neutrophils (%) (Auto) 75.3 % (37.0-80.0) Lymphocytes (%) (Auto) 17.0 % (10.0-50.0) Monocytes (%) (Auto) 5.6 % (0.0-12.0) Eosinophils (%) (Auto) 1.7 % (0.0-7.0) Basophils (%) (Auto) 0.4 % (0.0-2.0) Neutrophils # (Auto) 6.9 10 ^3/uL (1.6-8.6) Lymphocytes # (Auto) 1.5 10 ^3/uL (0.4-5.4) Monocytes # (Auto) 0.5 10 ^3/uL (0-1.3) Eosinophils # (Auto) 0.2 10 ^3/uL (0-0.8) Basophils # (Auto) 0 10 ^3/uL (0-0.2) Nucleated Red Blood Cells 0.1 % Lactic Acid Level 1.7 mmol/L (0.4-2.0) Total Bilirubin 0.3 mg/dL (0.2-1.0) Aspartate Amino Transferase (AST) 18 U/L (13-40) Alanine Aminotransferase (ALT) 14 U/L (7-40) Alkaline Phosphatase 143 U/L (46-116) B-Type Natriuretic Peptide 149.34 pg/mL (0-100) Total Protein 8.2 g/dL (5.7-8.2) Albumin 4.5 g/dL (3.2-4.8) Lipase 44 U/L (12-53) Test 10/14/24 16:15 Urine Color Colorless (Yellow) Urine Clarity Clear (Clear) Urine pH 7.5 (5.0-9.0) Urine Specific [place] 1.011 (1.001-1.035) Urine Protein Negative (Negative) Urine Ketones Negative (Negative) Urine Blood Negative /uL (Negative) Urine Nitrite Negative (Negative) Urine Bilirubin Negative (Negative) Urine Urobilinogen Normal mg/dL (Negative) Urine Leukocyte Esterase Negative /uL (Negative) Urine RBC None seen /hpf (0 - 3) Urine Microscopic WBC 1 /HPF (0-3) Urine Squamous Epithelial Cells None seen /hpf (<5) Urine Bacteria None seen /hpf (None Seen) Urine Glucose Normal mg/dL (Normal) Other Laboratory Tests 10/15/24 05:44 10/14/24 16:30 Discharge Statement: "Patient was advised to return to the ER or call 911 if any headaches, dizziness, shortness of breath, chest pain, abdominal pain, bleeding, fevers, or worsening of medical condition. Patient was counseled about treatment plan, medications, possible side effects, patientverbalized understanding. All questions were answered to the best of my ability. This discharge took greater then 30 minutes in planning, reviewing documentation, counseling the patient, and discussing with other team members." ASSESSMENT ASSESSMENT Assessment LIANA NOGUEIRA MD Oct 17, 2024 11:45
[2024-10-17] MEDS ORDERED: ALBUAER3 IN (11:47)
[2024-10-17] MEDS ORDERED: AZIT-74 PO (11:47)
[2024-10-17] MEDS ORDERED: LISI20TA56 PO (11:47)
--- NOTE | 2024-10-17 12:43 | DVHPN2 ---
Subjective The patient seen and examined at bedside. No complaint today Reviewed: Care Plan, H&P, Labs, Medications, Previous Orders, Radiology Changes from previous H/P or p: No Changes Objective Vitals Vital Signs Date Time Temp Pulse Resp B/P (MAP) Pulse Ox O2 Delivery O2 Flow Rate FiO2 10/17/24 10:00 97 Nasal Cannula 3.0 10/17/24 10:00 32 10/17/24 09:14 134/94 10/17/24 09:00 97.7 79 18 97.7 Intake/Output Intake and Output 10/17/24 07:00 Intake Total 950 ml Balance 950 ml Intake Oral 650 ml IV Total 300 ml # Voids 2 General Appearance: Alert, Oriented X3, Cooperative, No acute distress HEENT: Atraumatic, PERRLA, EOMI, Mucous membr. moist/pink Neck: Supple Lungs: Clear to auscultation, Normal air movement Cardiovascular: Regular rate, Normal S1, Normal S2, No murmurs, Gallops Abdomen: No Normal bowel sounds; Soft, No tenderness Neuro: Cranial nerves 3-12 NL Psych/Mental Status: Mental status NL Medications Current Medications Medications Dose Ordered Sig/Liudmila Route Start Time Stop Time Status Last Admin Dose Admin Lisinopril 10 mg DAILY PO 10/15/24 10:00 10/17/24 09:14 10 MG Albuterol 2.5 mg Q6HPRN PRN NEB 10/14/24 22:00 10/16/24 19:48 2.5 MG Ipratropium [place] 0.5 mg Q6HPRN PRN NEB 10/14/24 22:00 10/16/24 19:48 0.5 MG Ondansetron HCl 4 mg Q4HP PRN IV 10/14/24 22:00 Acetaminophen 650 mg Q6HP PRN PO 10/14/24 22:00 Atorvastatin Calcium 10 mg HS PO 10/15/24 22:00 10/16/24 21:36 10 MG Morphine Sulfate 2 mg Q30M PRN IV 10/15/24 21:00 10/15/24 21:40 2 MG Sodium Chloride 10 ml Q8HR IV 10/15/24 22:00 10/17/24 06:10 10 ML Nitroglycerin 0.4 mg Q5MINP PRN SL 10/15/24 21:00 Ceftriaxone Sodium 50 ml @ 100 mls/hr DAILY@09 IV 10/16/24 10:00 10/17/24 09:15 100 MLS/HR Azithromycin 250 ml @ 125 mls/hr DAILY IV 10/16/24 10:00 10/17/24 09:15 125 MLS/HR Laboratory Results Laboratory Tests 10/14/24 16:30 10/15/24 05:44 Urinalysis Test 10/14/24 16:15 Urine Color Colorless (Yellow) Urine Clarity Clear (Clear) Urine pH 7.5 (5.0-9.0) Urine Specific [place] 1.011 (1.001-1.035) Urine Protein Negative (Negative) Urine Ketones Negative (Negative) Urine Blood Negative /uL (Negative) Urine Nitrite Negative (Negative) Urine Bilirubin Negative (Negative) Urine Urobilinogen Normal mg/dL (Negative) Urine Leukocyte Esterase Negative /uL (Negative) Urine RBC None seen /hpf (0 - 3) Urine Microscopic WBC 1 /HPF (0-3) Urine Squamous Epithelial Cells None seen /hpf (<5) Urine Bacteria None seen /hpf (None Seen) Urine Glucose Normal mg/dL (Normal) Labs and/or images reviewed: Labs reviewed by me Assessment/Plan Assessment/Plan Acute on chronic respiratory failure COPD Accelerated hypertension Noncompliant Continuing current management. Continuing with nebulizer. Continuing Solumedrol 60mg IV q 8h and Rocephin 1gm IV qday. Continuing nebulizer Continuing lisinopril The patient belongs to [facility]. I called [facility] and signed out the patient to Dr. Sultana. He asked me to see the patient today and he will resume care tomorrow 10/18/2024 This medical document was created using an electronic medical record system with [employer] direct computerized dictation system. Although this document has been carefully reviewed, there may still be some phonetic and typographical errors. These areas are purely typographical due to imperfections of the software programs, and do not reflect any compromise in the patient's medical care. Plan discussed with: Patient My Orders Orders - LIANA NOGUEIRA MD Procedure Category Date Status Time Discharge DISCHARGE 10/17/24 Transmitted 11:47 Date of Service: Oct 17, 2024 Billing Provider: LIANA NOGUEIRA MD Common Visit Codes: [id number] INP/OBS CARE(HIGH) LIANA NOGUEIRA MD Oct 17, 2024 12:43
[2024-10-17] MEDS: amLODIPine BESYLATE 5 MG TAB PO SCH (13:21)
[2024-10-17] MEDS: DOCUSATE SOD 100 MG CAP PO SCH (17:36)
[2024-10-17] MEDS: hydrALAZINE HCL 20 MG/ML VL IV ONE (17:37)
[2024-10-17] MEDS: POLYETHYLENE GLYCOL 17 GM PWDR PO ONE (18:04)
[2024-10-17] MEDS ORDERED: DOCUSATE SOD 100 MG CAP PO SCH (22:00)
[2024-10-18] VITALS (7 sets, daily range): BP systolic 127–144; BP diastolic 78–92; PULSE 91–103; RESP 18–21; TEMP 98–98.8; O2SAT 92–96
== END 2024-10-18 10:40 | disposition home or self-care (01) | DRG 189 ==
LOC: EDBD 15:48 → ER 15:52 → OVERFLOW 21:47 → CENTRAL 23:59 → TELE-CENTR 10-15 23:19
PROVIDERS: ADMIT Student in an Organized Health Care Education/Training Program; ATTEND Student in an Organized Health Care Education/Training Program
DX: J96.20 Acute and chronic respiratory failure, unspecified whether with hypoxia or hypercapnia (principal); J44.9 Chronic obstructive pulmonary disease, unspecified; I16.0 Hypertensive urgency; I50.9 Heart failure, unspecified; I11.0 Hypertensive heart disease with heart failure; Z91.199 Patient's noncompliance with other medical treatment and regimen due to unspecified reason; Z79.899 Other long term (current) drug therapy
CPT/HCPCS: 36415; 71045; 80048; 80053; 80061; 81001; 83605; 83690; 83880; 84443; 84484; 85025; 93005; 93306; 94640; 96365; G0378; J1100; J7060

== ENCOUNTER 2024-11-21 12:13 | Inpatient (IN) | payer MEDICARE, OTHER ==
[~2024-11-21] VITALS: Ht 177.8 cm; Wt 71.5 kg
[2024-11-21] VITALS (10 sets, daily range): BP systolic 122–193; BP diastolic 81–112; PULSE 87–108; RESP 16–35; TEMP 97.9–99.3; O2SAT 92–100
[~2024-11-21 12:13] MED LIST: ALBUAER3 IN; AZIT-74 PO; LISI20TA56 PO
--- NOTE | 2024-11-21 12:22 | ED.PDOC ---
SOB-HPI HPI Comments 74 y.o male with PMHx of COPD, Asthma, CHF, HTN and TIA, presents to the ED via EMS for a chief complaint of SOB that started one day ago but has progressively worsened and is now associated with substernal chest radiating to his left arm. EMS reports patient's initial SPO2 read 80% RA on scene, placed him on C-PAP and SPO2 increased to 100%. Patient described chest pain as sharp, constant, and rating a 10/10 on the pain scale, however it went down to a 6/10 s/p EMS administrated Nitroglycerin paste. Patient's blood pressure read 152/100 and improved upon ED arrival. Patient denies any fever, chills, nausea, vomiting. Patient does present with bilateral leg swelling. Patient admits to using tobacco and occasionally alcohol. Time Seen by MD: 12:12 Reviewed notes: Nurses Notes, Chipper Feeder Notes, Medications, Allergies Information Source: Patient, Emergency Med Personnel Mode of Arrival: EMS Severity: Moderate Timing: Days (1) Duration: Since onset Context: At Rest PE Risk Factors: None History of: Asthma, COPD Modifying Factors: Nothing Associated Signs and Symptoms: Chest Pain, Leg Swelling Quality: Sharp Radiation: Arm (L) Location: Substernal Past Medical History PAST MEDICAL HISTORY: Asthma, CHF, COPD, HTN, TIA Surgical History: Tonsillectomy Family History Family History: Reviewed,noncontributory to illness Social History Smoker: Cigarettes Alcohol: Occasionally Drugs: Denies Drug Use Lives In: Home Constitutional: denies: chills, diaphoresis, fatigue, fever, malaise, sweats, weakness, others EENTM: denies: blurred vision, double vision, ear bleeding, ear discharge, ear drainage, ear pain, ear ringing, eye pain, eye redness, hearing loss, mouth pain, mouth swelling, nasal discharge, nose bleeding, nose congestion, nose pain, photophobia, tearing, throat pain, throat swelling, voice changes, others Respiratory: reports: SOB at rest, shortness of breath, SOB with excertion; denies: cough, hemoptysis, orthopnea, stridor, wheezing, others Cardiovascular: reports: chest pain; denies: dizzy spells, diaphoresis, Dyspnea on exertion, edema, irregular heart beat, left arm pain, lightheadedness, palpitations, PND, syncope, others Gastrointestinal: denies: abdomen distended, abdominal pain, blood streaked bowels, constipated, diarrhea, dysphagia, difficulty swallowing, hematemesis, melena, nausea, poor appetite, poor fluid intake, rectal bleeding, rectal pain, vomiting, others Genitourinary: denies: burning, dysuria, flank pain, frequency, hematuria, incontinence, penile discharge, penile sore, pain, testicle pain, testicle swelling, urgency, others Neurological: denies: dizziness, fainting, headache, left sided numbness, left sided weakness, numbness, paresthesia, pre-existing deficit, right sided numbness, right sided weakness, seizure, speech problems, tingling, tremors, weakness, others Musculoskeletal: denies: back pain, gout, joint pain, joint swelling, muscle pain, muscle stiffness, neck pain, others Integumetry: denies: bruises, change in color, change in hair/nails, dryness, laceration, lesions, lumps, rash, wounds, others Allergic/Immunocompromised: denies: Difficulty Healing, Frequent Infections, Hives, Itching, others Hematologic/Lymphatic: denies: anemia, blood clots, easy bleeding, easy bruising, swollen glands, others Endocrine: denies: excessive hunger, excessive sweating, excessive thirst, excessive urination, flushing, intolerance to cold, intolerance to heat, unexplained weight gain, unexplained weight loss, others Psychiatric: denies: anxiety, bipolar disorder, depression, hopeless, panic disorder, schizophrenia, sleepless, suicidal, others All Other Systems: Reviewed and Negative Physical Exam General Appearance: Severe Distress, Thin HEENT: Normal ENT Inspection, Pharynx Normal, TMs Normal Neck: Full Range of Motion, Non-Tender, Normal, Normal Inspection Respiratory: Accessory Muscle Use, Chest Non-Tender, Decreased Breath Sounds, Respiratory Distress, Other (The patient is currently on CPAP) Cardiovascular: No Edema, No JVD, No Murmur, No Gallop, Tachycardia Breast Exam: Deferred Gastrointestinal: No Organomegaly, Non Tender, No Pulsatile Mass, Normal Bowel Sounds, Soft Genitalia: Deferred Pelvic: Deferred Rectal: Deferred Extremities: No calf tenderness, Normal capillary refill, Normal inspection, Normal range of motion, Non-tender, No pedal edema Musculoskeletal : Apperance: Normal Neurologic: Alert, hurl shaker II-XII nml as Tested, Motor Weakness, Normal Affect, Normal Mood, No Sensory Deficits Cerebellar Function: Normal Reflexes: Normal Skin: Dry, Normal Color, Warm Lymphatic: No Adenopathy EKG EKG : Pulse Rate (adult): 107 Cardiac Rhythm: ST Was a procedure done? Was a procedure done?: No Differential Dx Differential Diagnosis: Asthma, Bronchitis, CHF, COPD, Pneumonia, Pneumothorax, Respiratory Distress, URI X-Ray, Labs, Meds, VS Vital Signs Date Time Temp Pulse Resp B/P (MAP) Pulse Ox O2 Delivery O2 Flow Rate FiO2 11/21/24 13:19 90 11/21/24 12:38 99.3 103 35 193/112 100 100 99.3 11/21/24 12:30 Bi-Pap+ 100 100 11/21/24 12:29 103 193/112 Facial BiPAP Mask 100 11/21/24 12:22 107 11/21/24 12:21 109 11/21/24 12:18 99.3 109 40 193/112 (139) 97 99.3 11/21/24 12:18 107 11/21/24 12:13 99.3 93 40 162/83 (109) 100 99.3 Lab Test 11/21/24 12:44 11/21/24 12:38 Range/Units White Blood Count 7.8 4.4-10.8 10^3/uL Red Blood Count 4.39 L 4.5-5.90 10^6/uL Hemoglobin 12.7 L 13.5-17.5 g/dL Hematocrit 38.9 L 41.0-53.0 % Mean Corpuscular Volume 88.6 80.0-100.0 fL Mean Corpuscular Hemoglobin 28.8 28.0-32.0 pg Mean Corpuscular Hemoglobin Concent 32.5 32.0-36.0 g/dL Red Cell Distribution Width 15.7 H 11.8-14.3 % Platelet Count 189 140-450 10^3/uL Mean Platelet Volume 6.7 L 6.9-10.8 fL Neutrophils (%) (Auto) 74.0 37.0-80.0 % Lymphocytes (%) (Auto) 18.4 10.0-50.0 % Monocytes (%) (Auto) 6.1 0.0-12.0 % Eosinophils (%) (Auto) 1.1 0.0-7.0 % Basophils (%) (Auto) 0.4 0.0-2.0 % Neutrophils # (Auto) 5.8 1.6-8.6 10 ^3/uL Lymphocytes # (Auto) 1.4 0.4-5.4 10 ^3/uL Monocytes # (Auto) 0.5 0-1.3 10 ^3/uL Eosinophils # (Auto) 0.1 0-0.8 10 ^3/uL Basophils # (Auto) 0 0-0.2 10 ^3/uL Nucleated Red Blood Cells 0.1 % Sodium Level 143 136-145 mmol/L Potassium Level 4.1 3.5-5.1 mmol/L Chloride Level 109 H 98-107 mmol/L Carbon Dioxide Level 24 20-31 mmol/L Anion Gap 10 5-15 Blood Urea Nitrogen 19 9-23 mg/dL Creatinine 1.43 H 0.700-1.30 mg/dL Glomerular Filtration Rate Calc 52 >90 mL/min BUN/Creatinine Ratio 13.3 10.0-20.0 Serum Glucose 108 H 74-106 mg/dL Calcium Level 8.7 8.7-10.4 mg/dL Troponin I High Sensitivity 534 *H </=54 ng/L B-Type Natriuretic Peptide 309.17 0-100 pg/mL Influenza Type A Antigen Negative Negative Influenza Type B Antigen Negative Negative SARS-CoV-2 Antigen (Rapid) Negative NEGATIVE Current Medications Medications (Trade) Dose Ordered Sig/Liudmila Route Start Time Stop Time Status Last Admin Methylprednisolone Sodium Succinate (Solu Medrol) 125 mg ONCE ONCE IV 11/21/24 12:30 11/21/24 12:31 DC 11/21/24 12:27 Aspirin 162 mg ONCE ONCE PO 11/21/24 12:30 11/21/24 12:31 DC 11/21/24 12:28 Chest x-ray is negative. The COVID test as well as influenza a and influenza B are negative The patient's troponin level came back at 534 consistent with possible non STEMI The patient was given Solu-Medrol 125 mg IV push as well as aspirin for his chest pain The CBC and the chemistry panel shows a creatinine of 1.43 but otherwise within normal limits We did contact Dr. Duarte who is the [facility] physician He is aware of the patient's elevated troponin level as well as the chest pain The patient is being admitted at this time Dr. Duarte will consult a dulser at this time The patient is being admitted Images Reviewed?: Images reviewed and evaluated by me Time of 1ST Reevaluation: 12:16 Reevaluation 1ST: Unchanged Patient Education/Counseling: Diagnosis, Treatment, Prognosis Family Education/Counseling: No Family Present Departure 1 Departure Time of Disposition: 14:50 Impression: Primary Impression: Acute respiratory failure Qualified Codes: J96.01 - Acute respiratory failure with hypoxia Additional Impressions: Non-STEMI (non-ST elevated myocardial infarction) Elevated troponin Disposition: ADMITTED INPATIENT Admit to: Tele Condition: Fair Critical Care Note Critical Care Time?: Yes (35 min-critical care time only) Stability Stability form required: Yes Unstable for transfer: Telemetry monitoring (Telemetry monitoring required), ED Physician Assesment (Clinical assesment) Heart Score Heart Score: Heart Score Response (Comments) Value History Moderate Suspicious 1 EKG Repolarization Disturb 1 Age >65 2 Risk Factors >3 or Hx ASHD 2 Troponin >3 x's Normal limit 2 Total 8 I personally scribed for CECILIO MILES MD ([email or web address]) on 11/21/24 at 12:22. Electronically submitted by Alecia Monae ([facility]). CECILIO MILES MD November 21, 2024 12:22
--- NOTE | 2024-11-21 12:22 | ECG ---
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
[2024-11-21] MEDS: methylPREDNISolone SOD SUCC 125 MG/2 ML VL IV ONE (12:27)
[2024-11-21] MEDS: ASPirin 81 mg TAB PO ONE (12:28)
--- NOTE | 2024-11-21 13:04 | DVH ---
CHEST RADIOGRAPH Indication: sob Technique: Single frontal view of the chest was obtained Comparison: None FINDINGS: Lines and Tubes: None Lungs: No focal consolidation. Pleura: No effusion. No pneumothorax. Cardiomediastinal contours: Unremarkable Bones: No acute osseous abnormality. IMPRESSION: 1. No acute cardiopulmonary disease.
[2024-11-21 13:11] LABS: Basophils # (auto) 0 10 ^3/uL (0-0.2); Basophils % (auto) 0.4 % (0.0-2.0); Eosinophils # (auto) 0.1 10 ^3/uL (0-0.8); Eosinophils % (auto) 1.1 % (0.0-7.0); Hematocrit 38.9 % (41.0-53.0); Hemoglobin 12.7 g/dL (13.5-17.5); Lymphocytes # (auto) 1.4 10 ^3/uL (0.4-5.4); Lymphocytes % (auto) 18.4 % (10.0-50.0); Mean Corpuscular Hemoglobin 28.8 pg (28.0-32.0); Mean Corpuscular Hgb Conc. 32.5 g/dL (32.0-36.0); Mean Corpuscular Volume 88.6 fL (80.0-100.0); Monocytes # (auto) 0.5 10 ^3/uL (0-1.3); Monocytes % (auto) 6.1 % (0.0-12.0); Neutrophils # (auto) 5.8 10 ^3/uL (1.6-8.6); Nucleated Red Blood Cells % 0.1 %; Platelet Count (auto) 189 10^3/uL (140-450); Red Blood Cells 4.39 10^6/uL (4.5-5.90); Red Cell Distribution Width 15.7 % (11.8-14.3); White Blood Cell 7.8 10^3/uL (4.4-10.8)
[2024-11-21 13:17] LABS: Potassium 4.1 mmol/L (3.5-5.1); Sodium 143 mmol/L (136-145)
[2024-11-21 13:18] LABS: Anion Gap 10 (5-15); Carbon Dioxide 24 mmol/L (20-31)
--- NOTE | 2024-11-21 13:20 | ECG ---
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
[2024-11-21 13:23] LABS: Calcium 8.7 mg/dL (8.7-10.4); Chloride 109 mmol/L (98-107)
[2024-11-21 13:24] LABS: BUN/Creatinine Ratio 13.3 (10.0-20.0); Blood Urea Nitrogen 19 mg/dL (9-23); Glucose 108 mg/dL (74-106)
[2024-11-21] MEDS ORDERED: NITROGLYCERIN 0.4 MG SL TAB SL PRN (13:30)
[2024-11-21] MEDS ORDERED: MORPHINE SULFATE INJ 2 MG/ml SYRG IV PRN (13:30)
[2024-11-21 13:43] LABS: COVID19 ANTIGEN SOFIA FIA NEGATIVE (NEGATIVE); Rapid Influenza A Negative (Negative); Rapid Influenza B Negative (Negative)
--- NOTE | 2024-11-21 13:45 | DVHHP2 ---
Admitting Diagnosis: sob History of Present Illness HPI 74 M who comes to ER c/o SOB worsening, His o2 sat was 80 via EMS. He was placed on CPAP and BIBA. He will be admitted for acute on chronic respiratory failure and for IV steroids and neb tx. Home Meds Active Scripts Albuterol Sulfate (VENTOLIN KIEL) 90 Mcg Ih, 90 MCG IN Q6HPRN PRN, #1 INH Prov:LIANA NOGUEIRA MD 10/17/24 Azithromycin (Zithromax) 250 Mg Tab, 250 MG PO DAILY, #6 TAB take 2 tablets the first day, then 1 tablet daily after that. Prov:LIANA NOGUEIRA MD 10/17/24 Lisinopril (Lisinopril) 20 Mg Tab, 1 TAB PO DAILY, #30 TAB 5 Refills Prov:LIANA NOGUEIRA MD 10/17/24 Past Medical History Cardiac: CHF, HTN Pulmonary: COPD Central Nervous System: TIA Patient Family History: FH: respiratory disease G8 MOTHER, Hypertension G8 FATHER, Review of Systems Constitutional: No symptom reported Pulmonary/Respiratory: Dyspnea, Cough Cardiovascular: Chest Pain Gastrointestinal: No symptom reported Genitourinary: No symptom reported Musculoskeletal: No symptom reported H&P Exam Vital Signs Vital Signs Date Time Temp Pulse Resp B/P (MAP) Pulse Ox O2 Delivery O2 Flow Rate FiO2 11/21/24 13:19 90 11/21/24 12:38 99.3 35 193/112 100 100 99.3 11/21/24 12:30 Bi-Pap+ General Appeara: Well developed Head Exam: Normal inspection Pulmonary/Respiratory: Decreased breath sounds Cardiovascular/Chest: Regular rate Labs/Xrays Labs Test 11/21/24 13:30 11/21/24 12:44 11/21/24 12:38 Range/Units Blood Gas Specimen Type Arterial Blood Gas Sample Site Right radial Blood Gas Patient Temperature 37.0 Arterial Blood Date Drawn [id number] Arterial Blood pH 7.462 H 7.350-7.450 Arterial Blood Partial Pressure CO2 31.5 L 35.0-48.0 mmHg Arterial Blood Partial Pressure O2 > 533.6 *H 83.0-108.0 mmHg Arterial Blood HCO3 22.0 21.0-28.0 mmol/L Arterial Blood Oxygen Saturation 99.7 H 94.0-98.0 % Arterial Blood Base Excess -1.0 -2.0-3.0 mmol/L Arterial Blood Oxyhemoglobin 98.8 H 94.0-98.0 % Arterial Blood Carboxyhemoglobin 0.2 L 0.5-1.5 % Arterial Blood Methemoglobin 0.7 0.0-1.5 % Cristobal Test Yes Blood Gas Total Hemoglobin 12.90 L 13.5-17.5 g/dL Blood Gas Set Respiration Rate 12.0 Blood Gas Modality Mask - bipap Blood Gas Spontaneous Rate 30 FiO2 % 100.0 Blood Gas EPAP 5 Blood Gas IPAP 12 Blood Gas Critical Value Read Back yes Blood Gas Notified Whom Blood Gas Notified Time [id number] Blood Gas Notified By school cook mirela White Blood Count 7.8 4.4-10.8 10^3/uL Red Blood Count 4.39 L 4.5-5.90 10^6/uL Hemoglobin 12.7 L 13.5-17.5 g/dL Hematocrit 38.9 L 41.0-53.0 % Mean Corpuscular Volume 88.6 80.0-100.0 fL Mean Corpuscular Hemoglobin 28.8 28.0-32.0 pg Mean Corpuscular Hemoglobin Concent 32.5 32.0-36.0 g/dL Red Cell Distribution Width 15.7 H 11.8-14.3 % Platelet Count 189 140-450 10^3/uL Mean Platelet Volume 6.7 L 6.9-10.8 fL Neutrophils (%) (Auto) 74.0 37.0-80.0 % Lymphocytes (%) (Auto) 18.4 10.0-50.0 % Monocytes (%) (Auto) 6.1 0.0-12.0 % Eosinophils (%) (Auto) 1.1 0.0-7.0 % Basophils (%) (Auto) 0.4 0.0-2.0 % Neutrophils # (Auto) 5.8 1.6-8.6 10 ^3/uL Lymphocytes # (Auto) 1.4 0.4-5.4 10 ^3/uL Monocytes # (Auto) 0.5 0-1.3 10 ^3/uL Eosinophils # (Auto) 0.1 0-0.8 10 ^3/uL Basophils # (Auto) 0 0-0.2 10 ^3/uL Nucleated Red Blood Cells 0.1 % Sodium Level 143 136-145 mmol/L Potassium Level 4.1 3.5-5.1 mmol/L Chloride Level 109 H 98-107 mmol/L Carbon Dioxide Level 24 20-31 mmol/L Anion Gap 10 5-15 Blood Urea Nitrogen 19 9-23 mg/dL Creatinine 1.43 H 0.700-1.30 mg/dL Glomerular Filtration Rate Calc 52 >90 mL/min BUN/Creatinine Ratio 13.3 10.0-20.0 Serum Glucose 108 H 74-106 mg/dL Calcium Level 8.7 8.7-10.4 mg/dL Troponin I High Sensitivity 534 *H </=54 ng/L Assessment/Plan Primary Diagnosis 1) Acute on chronic respiratory failure 2) COPD 3) Elevated troponin, demand 4) PAH 5) HTN 6) dCHF plan; admit to tele, IV steroids, nebs q4h, IV ABx, cardio consult, echo last month showed preserved EF with DD, AM labs, o2 to be ordered for home, supportive care Plan discussed with: Other (n) PAZ POTTER MD November 21, 2024 13:45
[2024-11-21] MEDS: ALBUTEROL SULF 2.5 MG/0.5ML(0.5%) NEB SOLN NEB SCH (13:57)
[2024-11-21] MEDS: IPRATROPIUM BROM 0.5 MG/2.5ML INH SOL NEB SCH (13:57)
[2024-11-21] MEDS: AZITHROMYCIN 500MG/ 250ML 250 ML IV SCH (14:27)
--- NOTE | 2024-11-21 15:23 | ECG ---
[facility] Test Date: 2024-11-21 Test Time: 15:22:25 Pat Name: DAJA DIOR Department: ED Room: 0215T Gender: M Ambulatory Services Representative: CAR[place] : 1950 Requested By: CECILIO MILES Order Number: [id number] Reading MD: Adrián Wilcox Measurements Intervals [place] Rate: 97 P: 70 MO: 155 QRS: 42 QRSD: 92 T: 43 QT: 397 QTc: 505 Interpretive Statements Sinus rhythm Probable left atrial enlargement Prolonged QT interval Electronically Signed On 11-27-2024 21:47:44 PDT by Adrián Wilcox Please click the below link to view image of tracing.
[2024-11-21] MEDS: methylPREDNISolone SOD SUCC 125 MG/2 ML VL IV SCH (18:43)
--- NOTE | 2024-11-21 23:59 | DVHINCON2 ---
Date of service: November 21, 2024 Referring Physician Felicia Reason for Consultation Elevated trop History of Present Illness This is a 74 year old male with a PMH of COPD, Asthma, CHF, HTN and TIA brought in by EMS with complaint of SOB that started one day ago, progressively worsened and is now associated with substernal chest radiating to his left arm. EMS reports patient's initial SPO2 read 80% RA on scene, placed him on C-PAP and SPO2 increased to 100%. Patient described chest pain as sharp, constant, and rating a 10/10 on the pain scale. Chest pain decreased to 6/10 s/p EMS administrated Nitroglycerin paste. Patient's blood pressure read 152/100 and improved upon ED arrival. Patient admits to using tobacco and occasionally alcohol. EKG shows tachycardia at 107. Chest x-ray is negative. The COVID test as well as influenza a and influenza B are negative.Troponin level 534. CBC and the chemistry panel shows a creatinine of 1.43 but otherwise within normal limits. The patient was given Solu-Medrol 125 mg IV push as well as aspirin for his chest pain. Patient was admitted to the hospital. I am asked to consult on this patient. Family History: FH: respiratory disease G8 MOTHER, Hypertension G8 FATHER, Allergies: Coded Allergies: NO KNOWN ALLERGIES (Unverified , 10/14/24) Home Meds Active Scripts Albuterol Sulfate (VENTOLIN MDI) 90 Mcg Ih, 90 MCG IN Q6HPRN PRN, #1 INH Prov:LIANA NOGUEIRA MD 10/17/24 Azithromycin (Zithromax) 250 Mg Tab, 250 MG PO DAILY, #6 TAB take 2 tablets the first day, then 1 tablet daily after that. Prov:LIANA NOGUEIRA MD 10/17/24 Lisinopril (Lisinopril) 20 Mg Tab, 1 TAB PO DAILY, #30 TAB 5 Refills Prov:LIANA NOGUEIRA MD 10/17/24 Current Medications Current Medications Medications (Trade) Dose Ordered Sig/Liudmila Route PRN Reason Start Time Stop Time Status Last Admin Nitroglycerin (Ntrostat Sublingual) 0.4 mg Q5MINP PRN SL FOR CHEST PAIN 11/21/24 13:30 Morphine Sulfate 2 mg Q30M PRN IV FOR CHEST PAIN 11/21/24 13:30 Albuterol (Ventolin Medneb) 2.5 mg Q4HR [facility] 11/21/24 14:00 11/21/24 22:36 Ipratropium [place] (Atrovent Medneb) 0.5 mg Q4HR NEB 11/21/24 14:00 11/21/24 22:36 Hydralazine HCl (Apresoline Injection) 10 mg Q4HP PRN IV sbp >160 11/21/24 13:30 Methylprednisolone Sodium Succinate (Solu Medrol) 125 mg Q6HR IV 11/21/24 18:00 11/21/24 18:43 Azithromycin 250 ml @ 125 mls/hr DAILY IV 11/21/24 13:30 11/21/24 14:27 Review of Systems Constitutional: denies: chills, diaphoresis, fatigue, fever, malaise, sweats, weakness, others EENTM: denies: blurred vision, double vision, ear bleeding, ear discharge, ear drainage, ear pain, ear ringing, eye pain, eye redness, hearing loss, mouth pain, mouth swelling, nasal discharge, nose bleeding, nose congestion, nose pain, photophobia, tearing, throat pain, throat swelling, voice changes, others Respiratory: reports: SOB at rest, shortness of breath, SOB with excertion; denies: cough, hemoptysis, orthopnea, stridor, wheezing, others Cardiovascular: reports: chest pain; denies: dizzy spells, diaphoresis, Dyspnea on exertion, edema, irregular heart beat, left arm pain, lightheadedness, palpitations, PND, syncope, others Gastrointestinal: denies: abdomen distended, abdominal pain, blood streaked bowels, constipated, diarrhea, dysphagia, difficulty swallowing, hematemesis, melena, nausea, poor appetite, poor fluid intake, rectal bleeding, rectal pain, vomiting, others Genitourinary: denies: burning, dysuria, flank pain, frequency, hematuria, incontinence, penile discharge, penile sore, pain, testicle pain, testicle swelling, urgency, others Neurological: denies: dizziness, fainting, headache, left sided numbness, left sided weakness, numbness, paresthesia, pre-existing deficit, right sided numbness, right sided weakness, seizure, speech problems, tingling, tremors, weakness, others Musculoskeletal: denies: back pain, gout, joint pain, joint swelling, muscle pain, muscle stiffness, neck pain, others Integumetry: denies: bruises, change in color, change in hair/nails, dryness, laceration, lesions, lumps, rash, wounds, others Allergic/Immunocompromised: denies: Difficulty Healing, Frequent Infections, Hives, Itching, others Hematologic/Lymphatic: denies: anemia, blood clots, easy bleeding, easy bruising, swollen glands, others Endocrine: denies: excessive hunger, excessive sweating, excessive thirst, excessive urination, flushing, intolerance to cold, intolerance to heat, unexplained weight gain, unexplained weight loss, others Psychiatric: denies: anxiety, bipolar disorder, depression, hopeless, panic disorder, schizophrenia, sleepless, suicidal, others All Other Systems: Reviewed and Negative Vital Signs Vital Signs Date Time Temp Pulse Resp B/P (MAP) Pulse Ox O2 Delivery O2 Flow Rate FiO2 11/21/24 22:44 102 18 100 11/21/24 22:36 Oxymizer 6.0 11/21/24 22:36 N/A 11/21/24 19:45 97.9 122/81 (95) 97.9 Physical Exam GENERAL: Alert and oriented x 3. No acute distress. EYES: PERRL, EOMI. Anicteric. HENT: Moist mucous membranes. LUNGS: Decreased breath sounds. CARDIOVASCULAR: Regular rate and rhythm. ABDOMEN: Soft, non-tender and non-distended. EXTREMITIES: BLE edema. NEUROLOGIC: No focal neurological deficits. SKIN: Warm, dry. Labs/Diagnostic Data Labs Test 11/21/24 15:38 11/21/24 13:30 11/21/24 12:44 11/21/24 12:38 Range/Units Troponin I High Sensitivity 402 *H </=54 ng/L Blood Gas Specimen Type Arterial Blood Gas Sample Site Right radial Blood Gas Patient Temperature 37.0 Arterial Blood Date Drawn [id number] Arterial Blood pH 7.462 H 7.350-7.450 Arterial Blood Partial Pressure CO2 31.5 L 35.0-48.0 mmHg Arterial Blood Partial Pressure O2 > 533.6 *H 83.0-108.0 mmHg Arterial Blood HCO3 22.0 21.0-28.0 mmol/L Arterial Blood Oxygen Saturation 99.7 H 94.0-98.0 % Arterial Blood Base Excess -1.0 -2.0-3.0 mmol/L Arterial Blood Oxyhemoglobin 98.8 H 94.0-98.0 % Arterial Blood Carboxyhemoglobin 0.2 L 0.5-1.5 % Arterial Blood Methemoglobin 0.7 0.0-1.5 % Cristobal Test Yes Blood Gas Total Hemoglobin 12.90 L 13.5-17.5 g/dL Blood Gas Set Respiration Rate 12.0 Blood Gas Modality Mask - bipap Blood Gas Spontaneous Rate 30 FiO2 % 100.0 Blood Gas EPAP 5 Blood Gas IPAP 12 Blood Gas Critical Value Read Back yes Blood Gas Notified Whom Blood Gas Notified Time [id number] Blood Gas Notified By rn employee health mirela White Blood Count 7.8 4.4-10.8 10^3/uL Red Blood Count 4.39 L 4.5-5.90 10^6/uL Hemoglobin 12.7 L 13.5-17.5 g/dL Hematocrit 38.9 L 41.0-53.0 % Mean Corpuscular Volume 88.6 80.0-100.0 fL Mean Corpuscular Hemoglobin 28.8 28.0-32.0 pg Mean Corpuscular Hemoglobin Concent 32.5 32.0-36.0 g/dL Red Cell Distribution Width 15.7 H 11.8-14.3 % Platelet Count 189 140-450 10^3/uL Mean Platelet Volume 6.7 L 6.9-10.8 fL Neutrophils (%) (Auto) 74.0 37.0-80.0 % Lymphocytes (%) (Auto) 18.4 10.0-50.0 % Monocytes (%) (Auto) 6.1 0.0-12.0 % Eosinophils (%) (Auto) 1.1 0.0-7.0 % Basophils (%) (Auto) 0.4 0.0-2.0 % Neutrophils # (Auto) 5.8 1.6-8.6 10 ^3/uL Lymphocytes # (Auto) 1.4 0.4-5.4 10 ^3/uL Monocytes # (Auto) 0.5 0-1.3 10 ^3/uL Eosinophils # (Auto) 0.1 0-0.8 10 ^3/uL Basophils # (Auto) 0 0-0.2 10 ^3/uL Nucleated Red Blood Cells 0.1 % Sodium Level 143 136-145 mmol/L Potassium Level 4.1 3.5-5.1 mmol/L Chloride Level 109 H 98-107 mmol/L Carbon Dioxide Level 24 20-31 mmol/L Anion Gap 10 5-15 Blood Urea Nitrogen 19 9-23 mg/dL Creatinine 1.43 H 0.700-1.30 mg/dL Glomerular Filtration Rate Calc 52 >90 mL/min BUN/Creatinine Ratio 13.3 10.0-20.0 Serum Glucose 108 H 74-106 mg/dL Calcium Level 8.7 8.7-10.4 mg/dL B-Type Natriuretic Peptide 309.17 0-100 pg/mL Influenza Type A Antigen Negative Negative Influenza Type B Antigen Negative Negative SARS-CoV-2 Antigen (Rapid) Negative NEGATIVE Assessment Acute on chronic respiratory failure. COPD. Elevated troponin. PAH. HTN. CHF. Plan/Recommendation I agree with your ongoing assessment and care of plan. IV antibiotics as ordered. IV Hydralazine for SBP >160. Morphine for pain. Nitro SL. Trend troponin. Additional plan as per the hospital course. A total of 45 minutes was spent reviewing the patient record, examining the patient, making a diagnostic and therapeutic plan, discussing this plan with medical personnel, following up on diagnostic studies and following the patient for clinical stability excluding any and all procedures. At least 50% of this time was spent in direct, [id number] contact. Plan discussed with: Patient ARYA WELLS MD November 21, 2024 23:59
[2024-11-22] VITALS (16 sets, daily range): BP systolic 139–164; BP diastolic 88–115; PULSE 77–103; RESP 16–20; TEMP 36.8; O2SAT 92–100
[2024-11-22] MEDS: hydrALAZINE HCL 20 MG/ML VL IV PRN (05:19)
[2024-11-22] MEDS ORDERED: ALBU108A5 IN (07:16)
[2024-11-22] MEDS ORDERED: METH4PAK PO (07:16)
[2024-11-22] MEDS ORDERED: LEVO500T91 PO (07:16)
--- NOTE | 2024-11-22 07:22 | DVHDS2 ---
New Physician D'charge PN Admitting Diagnosis Admitting Diagnosis copd Discharge Diagnosis copd exacerbation elevated troponin, demand Operations or Procedures none Reason(s) For Hospitalization Surgery Hospital Course 74 M who comes to ER c/o SOB that worsened over the last few days. He has known hx of COPD and was BIBA on CPAP. He was admitted for COPD exacerbation and CXR was clear, WBC was nml and chem panel was also nml except for a slightly elevated Cr of 1.4. He was admitted and started on IV Abx, IV steroids and around the clock nebs. Eventually he was weaned off the CPAP and now on 3-4L o2 via NC with sats >90%. He was seen by cardiology for troponin of 500 and it was deemed to be due to demand in the setting of COPD respiratory failure, He had an echo done last month which revealed preserved EF and diastolic dysfunction with pulmonary HTN. He will be discharged home today with home o2 and scripts for PO Abx, medrol dose jessica and albuterol inhaler. [facility] to arrange for home o2 and all outpt follow up. Treatment Plan Discharge Condition of Discharge Good Disposition Home Discharge Instructions Diet: Cardiac 2g Na,low cholest Activity: Light activity Medications: see med sheet Follow Up Care Follow Up/Referral: pcp pulm Discharge Statement: "Patient was advised to return to the ER or call 911 if any headaches, dizziness, shortness of breath, chest pain, abdominal pain, bleeding, fevers, or worsening of medical condition. Patient was counseled about treatment plan, medications, possible side effects, patientverbalized understanding. All questions were answered to the best of my ability. This discharge took greater then 30 minutes in planning, reviewing documentation, counseling the patient, and discussing with other team members." PAZ POTTER MD November 22, 2024 07:22
--- NOTE | 2024-11-22 11:14 | DVHPN2 ---
Progress Note - Dictate Date Seen: November 22, 2024 Medical Necessity Reason Pt with a Central, PICC or Fol: No Subjective Patient was seen and evaluated in follow up. Patient is complaining of SOB, he is on 5 LPM NC. CBC and CMP are pending. Awaiting home oxygen to be delivered. Patient is cardiac stable for discharge. Telemetry reviewed. vital signs Vital Sign Date Time Temp Pulse Resp B/P (MAP) Pulse Ox O2 Delivery O2 Flow Rate FiO2 11/22/24 10:34 36.8 11/22/24 09:16 81 20 156/88 (110) 92 11/22/24 08:00 Nasal Cannula* 5 40 Total Intake and Output 11/21/24 11/21/24 11/22/24 15:00 23:00 07:00 Intake Total 100 ml Balance 100 ml medications Current Medications Medications Dose Ordered Sig/Liudmila Route Start Time Stop Time Status Last Admin Dose Admin Nitroglycerin 0.4 mg Q5MINP PRN SL 11/21/24 13:30 Morphine Sulfate 2 mg Q30M PRN IV 11/21/24 13:30 Albuterol 2.5 mg Q4HR NEB 11/21/24 14:00 11/22/24 07:15 2.5 MG Ipratropium [place] 0.5 mg Q4HR NEB 11/21/24 14:00 11/22/24 07:15 0.5 MG Hydralazine HCl 10 mg Q4HP PRN IV 11/21/24 13:30 11/22/24 05:19 10 MG Methylprednisolone Sodium Succinate 125 mg Q6HR IV 11/21/24 18:00 11/22/24 06:19 125 MG Azithromycin 250 ml @ 125 mls/hr DAILY IV 11/21/24 13:30 11/22/24 09:29 125 MLS/HR objective GENERAL: Alert and oriented x 3. No acute distress. EYES: PERRL, EOMI. Anicteric. HENT: Moist mucous membranes. LUNGS: Decreased breath sounds. CARDIOVASCULAR: Regular rate and rhythm. ABDOMEN: Soft, non-tender and non-distended. EXTREMITIES: BLE edema. NEUROLOGIC: No focal neurological deficits. SKIN: Warm, dry. laboratory and microbiology Test 11/22/24 08:15 Range/Units Serum Glucose Pending Problem List Acute on chronic respiratory failure. COPD. Elevated troponin. PAH. HTN. CHF. Assessment/Plan Continued all current supportive medical care. IV antibiotics as ordered. IV Hydralazine for SBP >160. Morphine for pain. Nitro SL. Additional plan as per the hospital course. Plan discussed with: Patient ARYA WELLS MD November 22, 2024 11:14
[2024-11-22 11:31] LABS: Chloride 106 mmol/L (98-107); Hematocrit 41.7 % (41.0-53.0); Hemoglobin 13.4 g/dL (13.5-17.5); Mean Corpuscular Hemoglobin 29.3 pg (28.0-32.0); Mean Corpuscular Hgb Conc. 32.1 g/dL (32.0-36.0); Mean Corpuscular Volume 91.3 fL (80.0-100.0); Platelet Count (auto) 190 10^3/uL (140-450); Potassium 4.4 mmol/L (3.5-5.1); Red Blood Cells 4.57 10^6/uL (4.5-5.90); Red Cell Distribution Width 15.8 % (11.8-14.3); Sodium 141 mmol/L (136-145); White Blood Cell 10.8 10^3/uL (4.4-10.8)
[2024-11-22 11:32] LABS: Anion Gap 11 (5-15); Carbon Dioxide 24 mmol/L (20-31)
[2024-11-22 11:37] LABS: BUN/Creatinine Ratio 16.3 (10.0-20.0); Blood Urea Nitrogen 21 mg/dL (9-23)
[2024-11-22 11:38] LABS: Glucose 239 mg/dL (74-106)
[2024-11-22 11:51] LABS: Band Neutrophils % (manual) 0; Basophils % (manual) 0 (0.0-2.0); Blast Cells 0; Eosinophils % (manual) 0 (0-7); Metamyelocytes % 0; Myelocytes % 0; Promyelocytes % 0; Reactive Lymphocytes 0
[2024-11-22 12:32] LABS: Lymphocytes % (manual) 3 (10.0-50.0); Monocytes % (manual) 4 (0-12); Platelet Estimate Adequate
[2024-11-24] MEDS ORDERED: REGADENOSON 0.4 MG/5 ML SYRG IV ONE (08:53)
== END 2024-11-22 18:24 | disposition home or self-care (01) | DRG 280 ==
LOC: EDBD 12:13 → ER 12:19 → OVERFLOW 13:21 → TELE-CENTR 18:56
PROVIDERS: ADMIT Internal Medicine; ATTEND Internal Medicine
PROC: 5A09357 Assistance with Respiratory Ventilation, Less than 24 Consecutive Hours, Continuous Positive Airway Pressure (ICD-10-PCS; principal; 2024-11-21)
DX: I11.0 Hypertensive heart disease with heart failure (principal); I50.33 Acute on chronic diastolic (congestive) heart failure; I21.A1 Myocardial infarction type 2; J96.01 Acute respiratory failure with hypoxia; J44.1 Chronic obstructive pulmonary disease with (acute) exacerbation; I27.20 Pulmonary hypertension, unspecified; F17.210 Nicotine dependence, cigarettes, uncomplicated; Z86.73 Personal history of transient ischemic attack (TIA), and cerebral infarction without residual deficits; Z82.49 Family history of ischemic heart disease and other diseases of the circulatory system; Z79.2 Long term (current) use of antibiotics; Z79.899 Other long term (current) drug therapy
CPT/HCPCS: 36415; 36600; 71045; 80048; 82805; 83880; 84484; 85007; 85025; 85027; 87426; 87804; 93005; 94640; 94660; 99291; G0378

== ENCOUNTER 2024-12-11 15:58 | Emergency (ER) | payer OTHER ==
[~2024-12-11] VITALS: Ht 182.9 cm; Wt 68.0 kg
[~2024-12-11 15:58] MED LIST changes: +ALBU108A5 IN; -AZIT-74 PO; +LEVO500T91 PO; +METH4PAK PO
--- NOTE | 2024-12-11 16:11 | ED.PDOC ---
History of Present Illness HPI Comments 74 y.o male with PMHx of COPD, CHF, and early onset dementia, presents to the ED via EMS for an evaluation of generalized weakness. Patient reports driving to the store last night, got back home and revered his car into his driveway but was unable to get out due to weakness. Patient reports sleeping in his car all night up until EMS arrived s/p neighbors calling 911 around [phone]. While assisting patient out of the car, EMS noted he was dizzy but resolved when he got onto the gurney. Patient denies any chest pain, SOB, nausea, vomiting, recent illness, fever or chills. Vitals signs were stable on scene and on scene. Patient mentions taking no medications at this time. Time Seen by MD: 16:03 Reviewed Notes: Nurses Notes, Prosthetic Aides Teacher Notes, Medications, Allergies Allergies: Coded Allergies: NO KNOWN ALLERGIES (Unverified , 10/14/24) Home Meds Active Scripts Albuterol Sulfate (Albuterol Sulfate Hfa) 108 Mcg/Act Aer, 108 MCG IN Q4HPRN PRN, #1 AER Prov:PAZ POTTER MD 11/22/24 Levofloxacin Hemihydrate (LEVAQUIN 500 MG) 500 Mg Tab, 1 TAB PO DAILY, #7 TAB Prov:PAZ POTTER MD 11/22/24 Methylprednisolone (Medrol Dosepak) 4 Mg Vladimir, 4 MG PO UD, #21 TAB UAD Prov:PAZ POTTER MD 11/22/24 Albuterol Sulfate (VENTOLIN MDI) 90 Mcg Ih, 90 MCG IN Q6HPRN PRN, #1 INH Prov:LIANA NOGUEIRA MD 10/17/24 Lisinopril (Lisinopril) 20 Mg Tab, 1 TAB PO DAILY, #30 TAB 5 Refills Prov:LIANA NOGUEIRA MD 10/17/24 Information Source: Patient, Emergency Med Personnel Mode of Arrival: EMS Severity: Moderate Timing: Hours Duration: Since onset Past Medical History PAST MEDICAL HISTORY: Asthma, CHF, COPD, Dementia, HTN, TIA Surgical History: Tonsillectomy Family History Family History: Reviewed,noncontributory to illness Social History Smoker: Cigarettes Alcohol: Occasionally Drugs: Denies Drug Use Lives In: Home Constitutional: reports: weakness; denies: chills, diaphoresis, fatigue, fever, malaise, sweats, others EENTM: denies: blurred vision, double vision, ear bleeding, ear discharge, ear drainage, ear pain, ear ringing, eye pain, eye redness, hearing loss, mouth pain, mouth swelling, nasal discharge, nose bleeding, nose congestion, nose pain, photophobia, tearing, throat pain, throat swelling, voice changes, others Respiratory: denies: cough, hemoptysis, orthopnea, SOB at rest, shortness of breath, SOB with excertion, stridor, wheezing, others Cardiovascular: denies: chest pain, dizzy spells, diaphoresis, Dyspnea on exertion, edema, irregular heart beat, left arm pain, lightheadedness, palpitations, PND, syncope, others Gastrointestinal: denies: abdomen distended, abdominal pain, blood streaked bowels, constipated, diarrhea, dysphagia, difficulty swallowing, hematemesis, melena, nausea, poor appetite, poor fluid intake, rectal bleeding, rectal pain, vomiting, others Genitourinary: denies: burning, dysuria, flank pain, frequency, hematuria, incontinence, penile discharge, penile sore, pain, testicle pain, testicle swelling, urgency, others Neurological: reports: dizziness; denies: fainting, headache, left sided numbness, left sided weakness, numbness, paresthesia, pre-existing deficit, right sided numbness, right sided weakness, seizure, speech problems, tingling, tremors, weakness, others Musculoskeletal: denies: back pain, gout, joint pain, joint swelling, muscle pain, muscle stiffness, neck pain, others Integumetry: denies: bruises, change in color, change in hair/nails, dryness, laceration, lesions, lumps, rash, wounds, others Allergic/Immunocompromised: denies: Difficulty Healing, Frequent Infections, Hives, Itching, others Hematologic/Lymphatic: denies: anemia, blood clots, easy bleeding, easy bruising, swollen glands, others Endocrine: denies: excessive hunger, excessive sweating, excessive thirst, excessive urination, flushing, intolerance to cold, intolerance to heat, unexplained weight gain, unexplained weight loss, others Psychiatric: denies: anxiety, bipolar disorder, depression, hopeless, panic disorder, schizophrenia, sleepless, suicidal, others All Other Systems: Reviewed and Negative Physical Exam General Appearance: No Apparent Distress HEENT: Normal ENT Inspection, Pharynx Normal, TMs Normal Neck: Full Range of Motion, Non-Tender, Normal, Normal Inspection Respiratory: Chest Non-Tender, Lungs Clear, No Accessory Muscle Use, No Respiratory Distress, Normal Breath Sounds Cardiovascular: No Edema, No JVD, No Murmur, No Gallop, Normal Peripheral Pulses, Regular Rate/Rhythm Breast Exam: Deferred Gastrointestinal: No Organomegaly, Non Tender, No Pulsatile Mass, Normal Bowel Sounds, Soft Genitalia: Deferred Pelvic: Deferred Rectal: Deferred Extremities: No calf tenderness, Normal capillary refill, Normal inspection, Normal range of motion, Non-tender, No pedal edema Musculoskeletal : Apperance: Normal Neurologic: Alert, cold roller II-XII nml as Tested, No Motor Deficits, Normal Affect, Normal Mood, No Sensory Deficits Cerebellar Function: Normal Reflexes: Normal Skin: Dry, Normal Color, Warm Lymphatic: No Adenopathy Was a procedure done? Was a procedure done?: No EKG EKG : Pulse Rate (adult): 102 Cardiac Rhythm: ST Hypertrophy: LAE Differential Dx Considerations may include: Dehydration, Electrolyte Imbalance, Viral syndrome, Vertigo, CHF, Hypoxemia, Hypotension X-Ray, Labs, Meds, VS Vital Signs Date Time Temp Pulse Resp B/P (MAP) Pulse Ox O2 Delivery O2 Flow Rate FiO2 12/11/24 17:52 72 16 94 Room Air 12/11/24 17:52 98.7 74 16 142/93 (109) 94 98.7 12/11/24 16:22 102 12/11/24 16:18 102 12/11/24 16:17 98.9 101 14 149/90 (109) 97 98.9 Lab Test 12/11/24 16:29 Range/Units White Blood Count 11.7 H 4.4-10.8 10^3/uL Red Blood Count 3.81 L 4.5-5.90 10^6/uL Hemoglobin 10.8 L 13.5-17.5 g/dL Hematocrit 32.9 L 41.0-53.0 % Mean Corpuscular Volume 86.3 80.0-100.0 fL Mean Corpuscular Hemoglobin 28.5 28.0-32.0 pg Mean Corpuscular Hemoglobin Concent 33.0 32.0-36.0 g/dL Red Cell Distribution Width 15.9 H 11.8-14.3 % Platelet Count 466 H 140-450 10^3/uL Mean Platelet Volume 6.5 L 6.9-10.8 fL Neutrophils (%) (Auto) 83.6 H 37.0-80.0 % Lymphocytes (%) (Auto) 9.1 L 10.0-50.0 % Monocytes (%) (Auto) 6.6 0.0-12.0 % Eosinophils (%) (Auto) 0.2 0.0-7.0 % Basophils (%) (Auto) 0.5 0.0-2.0 % Neutrophils # (Auto) 9.8 H 1.6-8.6 10 ^3/uL Lymphocytes # (Auto) 1.1 0.4-5.4 10 ^3/uL Monocytes # (Auto) 0.8 0-1.3 10 ^3/uL Eosinophils # (Auto) 0 0-0.8 10 ^3/uL Basophils # (Auto) 0.1 0-0.2 10 ^3/uL Nucleated Red Blood Cells 0.0 % Sodium Level 138 136-145 mmol/L Potassium Level 4.0 3.5-5.1 mmol/L Chloride Level 105 98-107 mmol/L Carbon Dioxide Level 22 20-31 mmol/L Anion Gap 11 5-15 Blood Urea Nitrogen 13 9-23 mg/dL Creatinine 1.21 0.700-1.30 mg/dL Glomerular Filtration Rate Calc 64 >90 mL/min BUN/Creatinine Ratio 10.7 10.0-20.0 Serum Glucose 101 74-106 mg/dL Calcium Level 9.3 8.7-10.4 mg/dL Creatine Kinase 39 L 46-171 U/L Current Medications Medications (Trade) Dose Ordered Sig/Liudmila Route Start Time Stop Time Status Last Admin Sodium Chloride 1,000 ml @ 1,000 mls/hr Q1H ONCE IV 12/11/24 16:15 12/11/24 17:14 DC 12/11/24 16:15 IV Hep-Lock was established The patient was given 1 L bolus of normal saline The CBC shows an elevated white blood cell count of 11.7 The patient is somewhat anemic with a hemoglobin of 10.8 and hematocrit of 32.9 The patient is being discharged and will follow up with the primary care doctor The patient will return to the emergency department's condition worsens. Time of 1ST Reevaluation: 16:07 Reevaluation 1ST: Unchanged Time of 2ND Reevaluation: 19:42 Reevaluation 2ND: Improved Patient Education/Counseling: Diagnosis, Treatment, Prognosis, Need For Follow Up Family Education/Counseling: No Family Present Departure 1 Departure Time of Disposition: 19:41 Impression: Primary Impression: Generalized weakness Additional Impression: Heat exhaustion Qualified Codes: T67.5XXA - Heat exhaustion, unspecified, initial encounter Disposition: HOME / SELF CARE / HOMELESS Condition: Fair Discharged With: Self Critical Care Note Critical Care Time?: No Stability Stability form required: No Heart Score Heart Score: Heart Score Response (Comments) Value History N/A 0 EKG N/A 0 Age N/A 0 Risk Factors N/A 0 Troponin N/A 0 Total 0 I personally scribed for CECILIO MILES MD ([email or web address]) on 12/11/24 at 16:11. Electronically submitted by Alecia Monae ([email or web address]). I personally scribed for CECILIO MILES MD ([email or web address]) on 12/11/24 at 16:22. Electronically submitted by Alecia Monae ([email or web address]). CECILIO MILES MD Dec 11, 2024 16:11
[2024-12-11] MEDS: SODIUM CHLORIDE 0.9% 1,000 ML IV ONE (16:15)
--- NOTE | 2024-12-11 16:19 | ECG ---
[facility] Test Date: 2024-12-11 Test Time: 16:18:22 Pat Name: DAJA DIOR Department: ED Room: Gender: M Occupational Analyst: GV : 1950 Requested By: CECILIO MILES Order Number: [id number] Reading MD: Adrián Wilcox Measurements Intervals [place] Rate: 102 P: 71 CA: 142 QRS: 53 QRSD: 90 T: 44 QT: 348 QTc: 454 Interpretive Statements Sinus tachycardia Probable left atrial enlargement Electronically Signed On 12-11-2024 17:35:03 PDT by Adrián Wilcox Please click the below link to view image of tracing.
[2024-12-11 16:41] LABS: Basophils # (auto) 0.1 10 ^3/uL (0-0.2); Eosinophils # (auto) 0 10 ^3/uL (0-0.8); Hemoglobin 10.8 g/dL (13.5-17.5); Monocytes # (auto) 0.8 10 ^3/uL (0-1.3); Neutrophils # (auto) 9.8 10 ^3/uL (1.6-8.6)
[2024-12-11 16:43] LABS: Basophils % (auto) 0.5 % (0.0-2.0); Eosinophils % (auto) 0.2 % (0.0-7.0); Hematocrit 32.9 % (41.0-53.0); Lymphocytes # (auto) 1.1 10 ^3/uL (0.4-5.4); Lymphocytes % (auto) 9.1 % (10.0-50.0); Mean Corpuscular Hemoglobin 28.5 pg (28.0-32.0); Mean Corpuscular Volume 86.3 fL (80.0-100.0); Monocytes % (auto) 6.6 % (0.0-12.0); Neutrophils % (auto) 83.6 % (37.0-80.0); Platelet Count (auto) 466 10^3/uL (140-450); Red Blood Cells 3.81 10^6/uL (4.5-5.90); Red Cell Distribution Width 15.9 % (11.8-14.3); White Blood Cell 11.7 10^3/uL (4.4-10.8)
[2024-12-11 16:50] LABS: Anion Gap 11 (5-15); Carbon Dioxide 22 mmol/L (20-31); Chloride 105 mmol/L (98-107); Sodium 138 mmol/L (136-145)
[2024-12-11 16:51] LABS: Calcium 9.3 mg/dL (8.7-10.4)
[2024-12-11 16:56] LABS: BUN/Creatinine Ratio 10.7 (10.0-20.0); Blood Urea Nitrogen 13 mg/dL (9-23); Glucose 101 mg/dL (74-106)
[2024-12-11 16:58] LABS: Creatine Kinase IFCC 39 U/L (46-171)
[2024-12-11 20:10] VITALS: BP 137/81; PULSE 67; RESP 16; TEMP 98.3; O2SAT 97
== END 2024-12-11 21:37 | disposition home or self-care (01) ==
LOC: ER 15:58 → EDSEX 15:58 → EDBD 15:58 → ER 21:37
DX: T67.5XXA Heat exhaustion, unspecified, initial encounter (principal); R53.1 Weakness; F17.210 Nicotine dependence, cigarettes, uncomplicated; F10.90 Alcohol use, unspecified, uncomplicated; I11.0 Hypertensive heart disease with heart failure; I50.9 Heart failure, unspecified; J44.89 Other specified chronic obstructive pulmonary disease; F03.90 Unspecified dementia, unspecified severity, without behavioral disturbance, psychotic disturbance, mood disturbance, and anxiety; Z86.73 Personal history of transient ischemic attack (TIA), and cerebral infarction without residual deficits; Z90.89 Acquired absence of other organs; Z59.02 Unsheltered homelessness; Z79.899 Other long term (current) drug therapy; X30.XXXA Exposure to excessive natural heat, initial encounter; Y93.89 Activity, other specified; Y92.488 Other paved roadways as the place of occurrence of the external cause; Y99.8 Other external cause status; Y90.9 Presence of alcohol in blood, level not specified
CPT/HCPCS: 36415; 80048; 82550; 85025; 93005; 96360; 99284; J7030

== ENCOUNTER 2025-04-12 13:17 | Emergency (ER) | payer OTHER ==
[~2025-04-12] VITALS: Ht 175.3 cm; Wt 79.5 kg
--- NOTE | 2025-04-12 13:23 | ED.PDOC ---
History of Present Illness HPI Comments 74-year-old male brought by paramedics because of shortness a breath for the past five days. Patient states that he has been having shortness a breath on and off for the past month but last five days has been worse. He is placed on oxygen to maintain saturation above 90%. He gave up smoking one year ago. He states that he does have a history of hypertension but he does not take any medication. Apart from shortness a breath he states that he has right upper quadrant abdominal pain with no radiation of pain. Denies nausea vomiting. Denies any other symptoms. Time Seen by MD: 13:18 Reviewed Notes: Nurses Notes, Medications, Allergies Allergies: Coded Allergies: NO KNOWN ALLERGIES (Unverified , 10/14/24) Home Meds Active Scripts Albuterol Sulfate (Albuterol Sulfate Hfa) 108 Mcg/Act Aer, 108 MCG IN Q4HPRN PRN, #1 AER Prov:PAZ POTTER MD 11/22/24 Levofloxacin Hemihydrate (LEVAQUIN 500 MG) 500 Mg Tab, 1 TAB PO DAILY, #7 TAB Prov:PAZ POTTER MD 11/22/24 Methylprednisolone (Medrol Dosepak) 4 Mg Vladimir, 4 MG PO UD, #21 TAB UAD Prov:PAZ POTTER MD 11/22/24 Albuterol Sulfate (VENTOLIN MDI) 90 Mcg Ih, 90 MCG IN Q6HPRN PRN, #1 INH Prov:LIANA NOGUEIRA MD 10/17/24 Lisinopril (Lisinopril) 20 Mg Tab, 1 TAB PO DAILY, #30 TAB 5 Refills Prov:LIANA NOGUEIRA MD 10/17/24 Information Source: Patient, Emergency Med Personnel Mode of Arrival: EMS Severity: Moderate Timing: Days Duration: Since onset Past Medical History PAST MEDICAL HISTORY: Asthma, CHF, COPD, Dementia, HTN, TIA Surgical History: Tonsillectomy Family History Family History: Reviewed,noncontributory to illness Social History Smoker: Cigarettes Alcohol: Occasionally Drugs: Denies Drug Use Lives In: Home Constitutional: denies: chills, diaphoresis, fatigue, fever, malaise, sweats, weakness, others EENTM: denies: blurred vision, double vision, ear bleeding, ear discharge, ear drainage, ear pain, ear ringing, eye pain, eye redness, hearing loss, mouth pain, mouth swelling, nasal discharge, nose bleeding, nose congestion, nose pain, photophobia, tearing, throat pain, throat swelling, voice changes, others Respiratory: reports: shortness of breath; denies: cough, hemoptysis, orthopnea, SOB at rest, SOB with excertion, stridor, wheezing, others Cardiovascular: denies: chest pain, dizzy spells, diaphoresis, Dyspnea on exertion, edema, irregular heart beat, left arm pain, lightheadedness, palpitations, PND, syncope, others Gastrointestinal: reports: abdominal pain; denies: abdomen distended, blood streaked bowels, constipated, diarrhea, dysphagia, difficulty swallowing, hematemesis, melena, nausea, poor appetite, poor fluid intake, rectal bleeding, rectal pain, vomiting, others Genitourinary: denies: burning, dysuria, flank pain, frequency, hematuria, incontinence, penile discharge, penile sore, pain, testicle pain, testicle swelling, urgency, others Neurological: denies: dizziness, fainting, headache, left sided numbness, left sided weakness, numbness, paresthesia, pre-existing deficit, right sided numbness, right sided weakness, seizure, speech problems, tingling, tremors, weakness, others Musculoskeletal: denies: back pain, gout, joint pain, joint swelling, muscle pain, muscle stiffness, neck pain, others Integumetry: denies: bruises, change in color, change in hair/nails, dryness, laceration, lesions, lumps, rash, wounds, others Allergic/Immunocompromised: denies: Difficulty Healing, Frequent Infections, Hives, Itching, others Hematologic/Lymphatic: denies: anemia, blood clots, easy bleeding, easy bruising, swollen glands, others Endocrine: denies: excessive hunger, excessive sweating, excessive thirst, excessive urination, flushing, intolerance to cold, intolerance to heat, unexplained weight gain, unexplained weight loss, others Psychiatric: denies: anxiety, bipolar disorder, depression, hopeless, panic disorder, schizophrenia, sleepless, suicidal, others Physical Exam General Appearance: Moderate Distress HEENT: Normal ENT Inspection, Pharynx Normal, TMs Normal Neck: Full Range of Motion, Non-Tender, Normal, Normal Inspection Respiratory: Other (Coarse breath sounds) Cardiovascular: No Edema, No JVD, No Murmur, No Gallop, Normal Peripheral Pulses, Regular Rate/Rhythm Breast Exam: Deferred Gastrointestinal: No Organomegaly, Non Tender, No Pulsatile Mass, Normal Bowel Sounds, Soft Genitalia: Deferred Pelvic: Deferred Rectal: Deferred Extremities: No calf tenderness, Normal capillary refill, Normal inspection, Normal range of motion, Non-tender, No pedal edema Musculoskeletal : Apperance: Normal Neurologic: Alert, obgyn hospitalist physician II-XII nml as Tested, No Motor Deficits, Normal Affect, Normal Mood, No Sensory Deficits Cerebellar Function: NOT DONE Reflexes: NOT DONE Skin: Dry, Normal Color, Warm Peripheral Pulses: 3+ Radial (R), 3+ Radial (L) Lymphatic: No Adenopathy Was a procedure done? Was a procedure done?: No Differential Dx Considerations may include: Pneumonia Electrolyte imbalance X-Ray, Labs, Meds, VS Vital Signs Date Time Temp Pulse Resp B/P (MAP) Pulse Ox O2 Delivery O2 Flow Rate FiO2 04/12/25 13:55 20 91 Nasal Cannula* 1 24 04/12/25 13:22 98.2 92 17 138/76 98 98.2 Lab Test 04/12/25 16:16 04/12/25 13:53 Range/Units Urine Color Yellow Yellow Urine Clarity Clear Clear Urine pH 5.5 5.0-9.0 Urine Specific [place] 1.025 1.001-1.035 Urine Protein 1+ H Negative Urine Ketones Negative Negative Urine Blood Negative Negative /uL Urine Nitrite Negative Negative Urine Bilirubin Negative Negative Urine Urobilinogen Normal Negative mg/dL Urine Leukocyte Esterase Negative Negative /uL Urine RBC 1 0 - 3 /hpf Urine Microscopic WBC < 1 0-3 /HPF Urine Squamous Epithelial Cells Few <5 /hpf Urine Bacteria None seen None Seen /hpf Urine Hyaline Casts Few 0 - 2 /lpf Urine Glucose Normal Normal mg/dL White Blood Count 7.1 4.4-10.8 10^3/uL Red Blood Count 5.01 4.5-5.90 10^6/uL Hemoglobin 14.4 13.5-17.5 g/dL Hematocrit 43.4 41.0-53.0 % Mean Corpuscular Volume 86.5 80.0-100.0 fL Mean Corpuscular Hemoglobin 28.7 28.0-32.0 pg Mean Corpuscular Hemoglobin Concent 33.1 32.0-36.0 g/dL Red Cell Distribution Width 15.7 H 11.8-14.3 % Platelet Count 466 H 140-450 10^3/uL Mean Platelet Volume 6.2 L 6.9-10.8 fL Neutrophils (%) (Auto) 76.7 37.0-80.0 % Lymphocytes (%) (Auto) 14.9 10.0-50.0 % Monocytes (%) (Auto) 7.3 0.0-12.0 % Eosinophils (%) (Auto) 0.4 0.0-7.0 % Basophils (%) (Auto) 0.7 0.0-2.0 % Neutrophils # (Auto) 5.4 1.6-8.6 10 ^3/uL Lymphocytes # (Auto) 1.1 0.4-5.4 10 ^3/uL Monocytes # (Auto) 0.5 0-1.3 10 ^3/uL Eosinophils # (Auto) 0 0-0.8 10 ^3/uL Basophils # (Auto) 0 0-0.2 10 ^3/uL Nucleated Red Blood Cells 0.1 % Sodium Level 141 136-145 mmol/L Potassium Level 4.5 3.5-5.1 mmol/L Chloride Level 103 98-107 mmol/L Carbon Dioxide Level 26 20-31 mmol/L Anion Gap 12 5-15 Blood Urea Nitrogen 26 H 9-23 mg/dL Creatinine 1.92 H 0.700-1.30 mg/dL Glomerular Filtration Rate Calc 37 >90 mL/min BUN/Creatinine Ratio 13.5 10.0-20.0 Serum Glucose 101 74-106 mg/dL Calcium Level 9.9 8.7-10.4 mg/dL Troponin I High Sensitivity 19 </=54 ng/L B-Type Natriuretic Peptide 78.31 0-100 pg/mL Current Medications Medications (Trade) Dose Ordered Sig/Liudmila Route Start Time Stop Time Status Last Admin Methylprednisolone Sodium Succinate (Solu Medrol) 125 mg ONCE ONCE IV 04/12/25 13:30 04/12/25 13:31 DC 04/12/25 15:05 Albuterol (Ventolin Medneb) 5 mg ONCE ONCE NEB 04/12/25 13:30 04/12/25 13:31 DC 04/12/25 13:54 Ipratropium [place] (Atrovent Medneb) 0.5 mg ONCE ONCE NEB 04/12/25 13:30 04/12/25 13:31 DC 04/12/25 13:55 Patient alert. Vitals stable. Came in because of shortness a breath. Answering questions. Stopped smoking cigarettes. Placed on oxygen. Possible pneumonia. Explained to the patient. Continue monitoring. Time of 1ST Reevaluation: 13:21 Reevaluation 1ST: Unchanged Patient Education/Counseling: Diagnosis, Treatment, Prognosis Family Education/Counseling: No Family Present SEPSIS Sepsis Screen Physician Orders Chest Portable (04/12/25 13:24) Vital Signs Date Time Temp Pulse Resp B/P (MAP) Pulse Ox O2 Delivery O2 Flow Rate FiO2 04/12/25 13:55 20 91 Nasal Cannula* 1 24 04/12/25 13:22 98.2 92 17 138/76 98 98.2 Laboratory Tests Test 04/12/25 13:53 White Blood Count 7.1 10^3/uL (4.4-10.8) Medications Medications Dose Ordered Sig/Liudmila Route Start Time Stop Time Status Last Admin Dose Admin Albuterol 5 mg ONCE ONCE NEB 04/12/25 13:30 04/12/25 13:31 DC 04/12/25 13:54 Ipratropium [place] 0.5 mg ONCE ONCE NEB 04/12/25 13:30 04/12/25 13:31 DC 04/12/25 13:55 Methylprednisolone Sodium Succinate 125 mg ONCE ONCE IV 04/12/25 13:30 04/12/25 13:31 DC 04/12/25 15:05 Departure 1 Departure Time of Disposition: 13:22 Impression: Primary Impression: Acute respiratory failure Qualified Codes: J96.01 - Acute respiratory failure with hypoxia Additional Impression: Pneumonia Qualified Codes: J18.9 - Pneumonia, unspecified organism Disposition: ADMITTED INPATIENT Admit to: Med Surg Condition: Guarded Critical Care Note Critical Care Time?: Yes (90 min-critical care time only) Stability Stability form required: No Heart Score Heart Score: Heart Score Response (Comments) Value History Slightly Suspicious 0 EKG Normal 0 Age >65 2 Risk Factors >3 or Hx ASHD 2 Troponin Normal limit 0 Total 4 SALOME FAGAN MD Apr 12, 2025 13:23
[2025-04-12] MEDS: ALBUTEROL SULF 2.5 MG/0.5ML(0.5%) NEB SOLN NEB ONE ×2 (13:54→20:03)
[2025-04-12] MEDS: IPRATROPIUM BROM 0.5 MG/2.5ML INH SOL NEB ONE ×2 (13:55→20:03)
[2025-04-12 14:18] LABS: Hematocrit 43.4 % (41.0-53.0); Hemoglobin 14.4 g/dL (13.5-17.5); Mean Corpuscular Hemoglobin 28.7 pg (28.0-32.0); Mean Corpuscular Volume 86.5 fL (80.0-100.0); Nucleated Red Blood Cells % 0.1 %
--- NOTE | 2025-04-12 14:22 | DVH ---
CHEST RADIOGRAPH Indication: sob Technique: Single frontal view of the chest was obtained Comparison: XY CHEST PORTABLE on DOS: 11/21/24, XY CHEST PORTABLE on DOS: 10/14/24 FINDINGS: Lines and Tubes: None Lungs: No focal consolidation. Pleura: No effusion. No pneumothorax. Cardiomediastinal contours: Unremarkable Bones: No acute osseous abnormality. IMPRESSION: 1. No acute cardiopulmonary disease. 2. No significant change from 11/21/2024.
[2025-04-12 14:29] LABS: Chloride 103 mmol/L (98-107); Potassium 4.5 mmol/L (3.5-5.1); Sodium 141 mmol/L (136-145)
[2025-04-12 14:30] LABS: Anion Gap 12 (5-15); Calcium 9.9 mg/dL (8.7-10.4); Carbon Dioxide 26 mmol/L (20-31)
[2025-04-12 14:35] LABS: BUN/Creatinine Ratio 13.5 (10.0-20.0); Glucose 101 mg/dL (74-106)
[2025-04-12 14:49] LABS: Blood Urea Nitrogen 26 mg/dL (9-23)
[2025-04-12] MEDS: methylPREDNISolone SOD SUCC 125 MG/2 ML VL IV ONE ×2 (15:05→20:26)
[2025-04-12 16:24] LABS: Urine Protein, UAD 1+ (Negative)
[2025-04-12] MEDS: AZITHROMYCIN 500MG/ 250ML 250 ML IV ONE (19:25)
[2025-04-12 20:15] LABS: Base Excess -2.3 mmol/L (-2.0-3.0)
[2025-04-12] MEDS: SODIUM CHLORIDE 0.9% 1,000 ML IV ONE (20:27)
[2025-04-12] MEDS: ALBUTEROL SULF 2.5 MG/0.5ML(0.5%) NEB SOLN ONE (20:27)
[2025-04-12] MEDS: IPRATROPIUM BROM 0.5 MG/2.5ML INH SOL ONE (20:27)
[2025-04-12 22:15] VITALS: BP 157/104; PULSE 89; TEMP 97.5; O2SAT 94
[2025-04-12 22:28] VITALS: RESP 12
--- NOTE | 2025-04-14 19:38 | DVHDS2 ---
Physician Discharge Progress N Final Diagnosis: COPD exacerbation Operations or Procedures: Operations or Procedures none Other Interventions Other Interventions 74 y.o. male with COPD and HTN, h/o smoking was brought to the ER c/o SOB for one week. Patient denies taking any medications for HTN or COPD. He quit smoking one year ago. He denied any other symptoms. In the ER he was given oxygen, Albuterol/Atrovent respiratory treatment, Solu Medrol IV, Ceftriaxone. His CXR result returned showing no acute cardiopulmonary disease. WBC was WNL. Creatinine was mildly elevated compared to the previous. Patient was given a bolus of NS. Patient was observed in the ER and his VS were stable. His O2 sat was 94 on RA at the time of discharge. Patient will be scheduled for outpatient pulmonology appointment by Linda hernandes. Condition on Discharge: Stable Disposition: Home SNF Discharge Will this Physician continue t: No Discharge Instructions: Diet: Regular, Cardiac 2g Na,low cholest Activity: No Restrictions, As Tolerated Follow Up/Referral: Pulmonology appointment will be scheduled by Linda case aide in 3 days Medications: Continue home medications Follow Up Care: Discharge Statement: "Patient was advised to return to the ER or call 911 if any headaches, dizziness, shortness of breath, chest pain, abdominal pain, bleeding, fevers, or worsening of medical condition. Patient was counseled about treatment plan, medications, possible side effects, patientverbalized understanding. All questions were answered to the best of my ability. This discharge took greater then 30 minutes in planning, reviewing documentation, counseling the patient, and discussing with other team members." JEANNA DIANA MD Apr 14, 2025 19:38
== END 2025-04-12 23:19 | disposition admitted as inpatient to this hospital (09) ==
LOC: ER 13:17 → EDBD 13:17 → ER 23:19
DX: J96.00 Acute respiratory failure, unspecified whether with hypoxia or hypercapnia (principal); J18.9 Pneumonia, unspecified organism; R10.11 Right upper quadrant pain; F03.90 Unspecified dementia, unspecified severity, without behavioral disturbance, psychotic disturbance, mood disturbance, and anxiety; F17.210 Nicotine dependence, cigarettes, uncomplicated; I11.0 Hypertensive heart disease with heart failure; I50.9 Heart failure, unspecified; J44.9 Chronic obstructive pulmonary disease, unspecified; Z86.73 Personal history of transient ischemic attack (TIA), and cerebral infarction without residual deficits; Z90.89 Acquired absence of other organs
CPT/HCPCS: 36415; 36600; 71045; 80048; 81001; 82805; 83880; 84484; 85025; 94640; 96365; 96366; 96368; 96375; 96376; 99291; 99292; J0456; J0696; J2919

== ENCOUNTER 2025-04-16 10:59 | Emergency (ER) | payer OTHER ==
[~2025-04-16] VITALS: Ht 193 cm; Wt 89.3 kg
--- NOTE | 2025-04-16 12:33 | ED.PDOC ---
History of Present Illness HPI Comments 74-year-old male came to the ER because he had intravenous line which was placed last time he was here. He left without staying. History of hypertension. Denies any symptoms. Chief Complaint: Tube Replacement Time Seen by MD: 11:29 Reviewed Notes: Nurses Notes, Medications, Allergies Allergies: Coded Allergies: NO KNOWN ALLERGIES (Unverified , 10/14/24) Home Meds Active Scripts Albuterol Sulfate (Albuterol Sulfate Hfa) 108 Mcg/Act Aer, 108 MCG IN Q4HPRN PRN, #1 AER Prov:PAZ POTTER MD 11/22/24 Levofloxacin Hemihydrate (LEVAQUIN 500 MG) 500 Mg Tab, 1 TAB PO DAILY, #7 TAB Prov:PAZ POTTER MD 11/22/24 Methylprednisolone (Medrol Dosepak) 4 Mg Vladimir, 4 MG PO UD, #21 TAB UAD Prov:PAZ POTTER MD 11/22/24 Albuterol Sulfate (VENTOLIN MDI) 90 Mcg Ih, 90 MCG IN Q6HPRN PRN, #1 INH Prov:LIANA NOGUEIRA MD 10/17/24 Lisinopril (Lisinopril) 20 Mg Tab, 1 TAB PO DAILY, #30 TAB 5 Refills Prov:LIANA NOGUEIRA MD 10/17/24 Information Source: Patient Mode of Arrival: Ambulatory Severity: Moderate Timing: Days Duration: Since onset Past Medical History PAST MEDICAL HISTORY: Asthma, CHF, COPD, Dementia, HTN, TIA Surgical History: Tonsillectomy Family History Family History: Reviewed,noncontributory to illness Social History Smoker: Cigarettes Alcohol: Occasionally Drugs: Denies Drug Use Lives In: Home Constitutional: denies: chills, diaphoresis, fatigue, fever, malaise, sweats, weakness, others EENTM: denies: blurred vision, double vision, ear bleeding, ear discharge, ear drainage, ear pain, ear ringing, eye pain, eye redness, hearing loss, mouth pain, mouth swelling, nasal discharge, nose bleeding, nose congestion, nose pain, photophobia, tearing, throat pain, throat swelling, voice changes, others Respiratory: denies: cough, hemoptysis, orthopnea, SOB at rest, shortness of breath, SOB with excertion, stridor, wheezing, others Cardiovascular: denies: chest pain, dizzy spells, diaphoresis, Dyspnea on exertion, edema, irregular heart beat, left arm pain, lightheadedness, palpitations, PND, syncope, others Gastrointestinal: denies: abdomen distended, abdominal pain, blood streaked bowels, constipated, diarrhea, dysphagia, difficulty swallowing, hematemesis, melena, nausea, poor appetite, poor fluid intake, rectal bleeding, rectal pain, vomiting, others Genitourinary: denies: burning, dysuria, flank pain, frequency, hematuria, incontinence, penile discharge, penile sore, pain, testicle pain, testicle swelling, urgency, others Neurological: denies: dizziness, fainting, headache, left sided numbness, left sided weakness, numbness, paresthesia, pre-existing deficit, right sided numbness, right sided weakness, seizure, speech problems, tingling, tremors, weakness, others Musculoskeletal: denies: back pain, gout, joint pain, joint swelling, muscle pain, muscle stiffness, neck pain, others Integumetry: denies: bruises, change in color, change in hair/nails, dryness, laceration, lesions, lumps, rash, wounds, others Allergic/Immunocompromised: denies: Difficulty Healing, Frequent Infections, Hives, Itching, others Hematologic/Lymphatic: denies: anemia, blood clots, easy bleeding, easy bruising, swollen glands, others Endocrine: denies: excessive hunger, excessive sweating, excessive thirst, excessive urination, flushing, intolerance to cold, intolerance to heat, unexplained weight gain, unexplained weight loss, others Psychiatric: denies: anxiety, bipolar disorder, depression, hopeless, panic disorder, schizophrenia, sleepless, suicidal, others Physical Exam General Appearance: Moderate Distress HEENT: Normal ENT Inspection, Pharynx Normal, TMs Normal Neck: Full Range of Motion, Non-Tender, Normal, Normal Inspection Respiratory: Chest Non-Tender, Lungs Clear, No Accessory Muscle Use, No Respiratory Distress, Normal Breath Sounds Cardiovascular: No Edema, No JVD, No Murmur, No Gallop, Normal Peripheral Pulses, Regular Rate/Rhythm Breast Exam: Deferred Gastrointestinal: No Organomegaly, Non Tender, No Pulsatile Mass, Normal Bowel Sounds, Soft Genitalia: Deferred Pelvic: Deferred Rectal: Deferred Extremities: Other (Peripheral line in the right antecubital fossa) Musculoskeletal : Apperance: Normal Neurologic: Alert, contract administration coordinator II-XII nml as Tested, No Motor Deficits, Normal Affect, Normal Mood, No Sensory Deficits Cerebellar Function: Normal Reflexes: Normal Skin: Dry, Normal Color, Warm Peripheral Pulses: 3+ Radial (R), 3+ Radial (L) Lymphatic: No Adenopathy Was a procedure done? Was a procedure done?: No Differential Dx Considerations may include: Intravenous line X-Ray, Labs, Meds, VS Vital Signs Date Time Temp Pulse Resp B/P (MAP) Pulse Ox O2 Delivery O2 Flow Rate FiO2 04/16/25 11:52 99 18 99 Room Air 04/16/25 11:52 97.3 96 18 151/82 (105) 99 97.3 04/16/25 11:00 97.0 103 16 153/102 95 97.0 Patient alert. Came in because of intravenous line in the antecubital fossa. Vitals stable. Answering questions. No sign of distress. He is comfortable. He just wants the line removed. No sign of any infection. Explained to the patient. Was told to follow up with his primary care physician. Was told to come back if there is any problem. Time of 1ST Reevaluation: 12:31 Reevaluation 1ST: Unchanged Patient Education/Counseling: Diagnosis, Treatment, Prognosis, Need For Follow Up Family Education/Counseling: No Family Present SEPSIS Sepsis Screen Date sepsis recognized/suspect: Apr 16, 2025 Time Sepsis recognized/suspect: 1100 Recent Procedure: No On Antibiotic Therapy: No Respiratory Rate >20: No Heart Rate >90: Yes Temp<36 C (96.8 F) or >38.3 C: No SBP <90 or MAP <65 mmHG: No New Acute Mental Status Change: No Is the patient on CPAP, BIPAP,: No Vital Signs Date Time Temp Pulse Resp B/P (MAP) Pulse Ox O2 Delivery O2 Flow Rate FiO2 04/16/25 11:52 99 18 99 Room Air 04/16/25 11:52 97.3 96 18 151/82 (105) 99 97.3 04/16/25 11:00 97.0 103 16 153/102 95 97.0 Departure 1 Departure Time of Disposition: 12:32 Impression: Primary Impression: HTN (hypertension) Qualified Codes: I10 - Essential (primary) hypertension Disposition: 01 HOME / SELF CARE / HOMELESS Condition: Good Discharged With: Self Critical Care Note Critical Care Time?: No Stability Stability form required: No Heart Score Heart Score: Heart Score Response (Comments) Value History N/A 0 EKG N/A 0 Age N/A 0 Risk Factors N/A 0 Troponin N/A 0 Total 0 SALOME FAGAN MD Apr 16, 2025 12:33
[2025-04-16 13:01] VITALS: BP 158/98; PULSE 88; RESP 16; TEMP 98; O2SAT 97
== END 2025-04-16 13:02 | disposition home or self-care (01) ==
LOC: ER 10:59
DX: I11.0 Hypertensive heart disease with heart failure (principal); I50.9 Heart failure, unspecified; F03.90 Unspecified dementia, unspecified severity, without behavioral disturbance, psychotic disturbance, mood disturbance, and anxiety; F17.210 Nicotine dependence, cigarettes, uncomplicated; F10.90 Alcohol use, unspecified, uncomplicated; J44.89 Other specified chronic obstructive pulmonary disease; Z79.899 Other long term (current) drug therapy; Z86.73 Personal history of transient ischemic attack (TIA), and cerebral infarction without residual deficits; Z90.89 Acquired absence of other organs; Y90.9 Presence of alcohol in blood, level not specified

== ENCOUNTER 2025-05-05 15:46 | Inpatient (IN) | payer OTHER ==
[~2025-05-05] VITALS: Ht 182.9 cm; Wt 71.0 kg
--- NOTE | 2025-05-05 19:15 | ECG ---
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
--- NOTE | 2025-05-05 19:48 | ED.PDOC ---
Back pain HPI HPI Comments 74-year-old male BIBAndrew with prior medical history of with a prior medical history of asthma, CHF, COPD, dementia, hypertension, TIA: Surgical history of tonsillectomy in the chief complaint of abdominal pain. Patient reports on having right sided rib pain for the past three days which has been constant. Denies any other symptoms at this time. Denies chills, fever, N/V/D, SOB, CP. No other associated symptoms, modifiers, recent injuries or sick contacts present at this time. Chief Complaint: Abdominal Pain Time Seen by MD: 19:45 Reviewed Notes: Nurses Notes, Volcanology Professor Notes, Medications, Allergies Allergies: Coded Allergies: NO KNOWN ALLERGIES (Unverified , 10/14/24) Home Meds Active Scripts Albuterol Sulfate (Albuterol Sulfate Hfa) 108 Mcg/Act Aer, 108 MCG IN Q4HPRN PRN, #1 AER Prov:PAZ POTTER MD 11/22/24 Levofloxacin Hemihydrate (LEVAQUIN 500 MG) 500 Mg Tab, 1 TAB PO DAILY, #7 TAB Prov:PAZ POTTER MD 11/22/24 Methylprednisolone (Medrol Dosepak) 4 Mg Vladimir, 4 MG PO UD, #21 TAB UAD Prov:PAZ POTTER MD 11/22/24 Albuterol Sulfate (VENTOLIN MDI) 90 Mcg Ih, 90 MCG IN Q6HPRN PRN, #1 INH Prov:LIANA NOGUEIRA MD 10/17/24 Lisinopril (Lisinopril) 20 Mg Tab, 1 TAB PO DAILY, #30 TAB 5 Refills Prov:LIANA NOGUEIRA MD 10/17/24 Information Source: Patient, Emergency Med Personnel Mode of Arrival: EMS Timing: Days Duration: Since onset, Days Severity: Moderate Prehospital treatment: None Quality: Aching Onset: Spontaneous History of: None Associated signs and symptoms: None Past Medical History PAST MEDICAL HISTORY: Asthma, CHF, COPD, Dementia, HTN, TIA Surgical History: Tonsillectomy Family History Family History: Reviewed,noncontributory to illness, Unknown Social History Smoker: Unknown Alcohol: Unknown Drugs: Unknown Lives In: Home Constitutional: denies: chills, diaphoresis, fatigue, fever, malaise, sweats, weakness, others EENTM: denies: blurred vision, double vision, ear bleeding, ear discharge, ear drainage, ear pain, ear ringing, eye pain, eye redness, hearing loss, mouth pain, mouth swelling, nasal discharge, nose bleeding, nose congestion, nose pain , photophobia, tearing, throat pain, throat swelling, voice changes, others Respiratory: denies: cough, hemoptysis, orthopnea, SOB at rest, shortness of breath, SOB with excertion, stridor, wheezing, others Cardiovascular: denies: chest pain, dizzy spells, diaphoresis, Dyspnea on exertion, edema, irregular heart beat, left arm pain, lightheadedness, palpitations, PND, syncope, others Gastrointestinal: denies: abdomen distended, abdominal pain, blood streaked bowels, constipated, diarrhea, dysphagia, difficulty swallowing, hematemesis, melena, nausea, poor appetite, poor fluid intake, rectal bleeding, rectal pain, vomiting, others Genitourinary: denies: burning, dysuria, flank pain, frequency, hematuria, incontinence, penile discharge, penile sore, pain, testicle pain, testicle swelling, urgency, others Neurological: denies: dizziness, fainting, headache, left sided numbness, left sided weakness, numbness, paresthesia, pre-existing deficit, right sided numbness, right sided weakness, seizure, speech problems, tingling, tremors, weakness, others Musculoskeletal: reports: others (Right-sided rib pain); denies: back pain, gout, joint pain, joint swelling, muscle pain, muscle stiffness, neck pain Integumetry: denies: bruises, change in color, change in hair/nails, dryness, laceration, lesions, lumps, rash, wounds, others Allergic/Immunocompromised: denies: Difficulty Healing, Frequent Infections, Hives, Itching, others Hematologic/Lymphatic: denies: anemia, blood clots, easy bleeding, easy bruising, swollen glands, others Endocrine: denies: excessive hunger, excessive sweating, excessive thirst, excessive urination, flushing, intolerance to cold, intolerance to heat, unexplained weight gain, unexplained weight loss, others Psychiatric: denies: anxiety, bipolar disorder, depression, hopeless, panic disorder, schizophrenia, sleepless, suicidal, others All Other Systems: Reviewed and Negative Physical Exam General Appearance: Moderate Distress, Severe Distress, Thin HEENT: Normal ENT Inspection, PERRL/EOMI, Pharynx Normal, TMs Normal Neck: Full Range of Motion, Non-Tender, Normal, Normal Inspection Respiratory: Chest Non-Tender, Lungs Clear, No Accessory Muscle Use, No Respiratory Distress, Normal Breath Sounds, Other (Severe right chest wall pain with pleuritic chest pain) Cardiovascular: No Edema, No JVD, No Murmur, No Gallop, Normal Peripheral Pulses, Regular Rate/Rhythm Breast Exam: Deferred Gastrointestinal: No Organomegaly, Non Tender, No Pulsatile Mass, Normal Bowel Sounds, Soft, Other (Patient lost large amount of weight and also stool incontinence) Genitalia: Deferred Pelvic: Deferred Rectal: Deferred Extremities: No calf tenderness, Normal capillary refill, Normal inspection, Normal range of motion, Non-tender, No pedal edema Musculoskeletal : Apperance: Normal Neurologic: Alert, behavioral instructor II-XII nml as Tested, No Motor Deficits, Normal Affect, Normal Mood, No Sensory Deficits Cerebellar Function: Normal Reflexes: Normal Skin: Dry, Normal Color, Warm Peripheral Pulses: 1+ carotid (R), 1+ carotid (L) Lymphatic: No Adenopathy Was a procedure done? Was a procedure done?: No EKG EKG : Pulse Rate (adult): 119 [place]: Normal Cardiac Rhythm: ST Block: None Hypertrophy: None ST: Normal Back Pain Differential Dx Differential Diagnosis: Fracture, Musculoskeletal Pain, Urolithiasis X-Ray, Labs, Meds, VS Vital Signs Date Time Temp Pulse Resp B/P (MAP) Pulse Ox O2 Delivery O2 Flow Rate FiO2 05/05/25 20:09 87 22 97 Non-Rebreather 15.0 05/05/25 20:09 98.0 87 22 131/95 (107) 97 98.0 05/05/25 19:48 119 05/05/25 18:42 117 20 138/101 (113) 90 05/05/25 15:46 119 05/05/25 15:46 98.2 112 16 123/82 97 98.2 Lab Test 05/05/25 20:00 Range/Units White Blood Count 8.4 4.4-10.8 10^3/uL Red Blood Count 4.48 L 4.5-5.90 10^6/uL Hemoglobin 13.0 L 13.5-17.5 g/dL Hematocrit 38.6 L 41.0-53.0 % Mean Corpuscular Volume 86.2 80.0-100.0 fL Mean Corpuscular Hemoglobin 28.9 28.0-32.0 pg Mean Corpuscular Hemoglobin Concent 33.5 32.0-36.0 g/dL Red Cell Distribution Width 15.6 H 11.8-14.3 % Platelet Count 260 140-450 10^3/uL Mean Platelet Volume 6.8 L 6.9-10.8 fL Neutrophils (%) (Auto) 77.4 37.0-80.0 % Lymphocytes (%) (Auto) 15.9 10.0-50.0 % Monocytes (%) (Auto) 5.6 0.0-12.0 % Eosinophils (%) (Auto) 0.9 0.0-7.0 % Basophils (%) (Auto) 0.2 0.0-2.0 % Neutrophils # (Auto) 6.5 1.6-8.6 10 ^3/uL Lymphocytes # (Auto) 1.3 0.4-5.4 10 ^3/uL Monocytes # (Auto) 0.5 0-1.3 10 ^3/uL Eosinophils # (Auto) 0.1 0-0.8 10 ^3/uL Basophils # (Auto) 0 0-0.2 10 ^3/uL Nucleated Red Blood Cells 0.1 % Prothrombin Time 11.2 9.3-11.8 sec Prothrombin Time INR 1.06 0.9-1.15 Activated Partial Thromboplast Time 27.3 24.5-34.5 SEC D-Dimer, Quantitative 6.42 H 0.0-0.49 mg/L FEU Sodium Level 141 136-145 mmol/L Potassium Level 4.7 3.5-5.1 mmol/L Chloride Level 104 98-107 mmol/L Carbon Dioxide Level 25 20-31 mmol/L Anion Gap 12 5-15 Blood Urea Nitrogen 43 H 9-23 mg/dL Creatinine 2.30 H 0.700-1.30 mg/dL Glomerular Filtration Rate Calc 29 >90 mL/min BUN/Creatinine Ratio 18.7 10.0-20.0 Serum Glucose 95 74-106 mg/dL Calcium Level 9.0 8.7-10.4 mg/dL Magnesium Level 2.1 1.6-2.6 mg/dL Total Bilirubin 0.3 0.2-1.0 mg/dL Aspartate Amino Transferase (AST) 34 13-40 U/L Alanine Aminotransferase (ALT) 20 7-40 U/L Alkaline Phosphatase 133 H 46-116 U/L Troponin I High Sensitivity 1423 *H </=54 ng/L Total Protein 8.1 5.7-8.2 g/dL Albumin 4.2 3.2-4.8 g/dL Current Medications Medications (Trade) Dose Ordered Sig/Liudmila Route Start Time Stop Time Status Last Admin Aspirin 162 mg ONCE ONCE PO 05/05/25 19:15 05/05/25 19:21 DC 05/05/25 20:21 X-Ray, Labs, Meds, VS Comment Course in the emergency department eventful patient came in with abdominal pain but mostly had right chest pain with a exquisite pain to pressure and also pain upon inspiration Chest x-ray is normal EKG shows done sinus tachycardia at 1:19 a.m. with a left axis left atrial enlargement and right ventricular hypertrophy with ischemia in the anterior leads CBC normal CMP negative except for GFR of 29 D-dimer 6.42 INR 1.06 Magnesium 2.1 Troponin 1423 ABG pending Patient will be admitted for further care Time of 1ST Reevaluation: 20:15 Reevaluation 1ST: Unchanged Time of 2ND Reevaluation: 21:39 Reevaluation 2ND: Unchanged Patient Education/Counseling: Diagnosis, Treatment, Prognosis Family Education/Counseling: No Family Present SEPSIS Sepsis Screen Date sepsis recognized/suspect: May 05, 2025 Time Sepsis recognized/suspect: 1546 Recent Procedure: No On Antibiotic Therapy: No Respiratory Rate >20: No Heart Rate >90: Yes Temp<36 C (96.8 F) or >38.3 C: No SBP <90 or MAP <65 mmHG: No New Acute Mental Status Change: No Is the patient on CPAP, BIPAP,: No Physician Orders Heplock Iv (05/05/25 19:15) Blood Pressure (05/05/25 19:15) Oxygen (05/05/25 19:15) Pulse Oximetry (05/05/25 19:15) Chest Two Views Routine (05/05/25 19:15) Sodium Chloride 0.9% (05/05/25 19:15) Abg W/ Co-Ox (05/05/25 21:38) Vital Signs Date Time Temp Pulse Resp B/P (MAP) Pulse Ox O2 Delivery O2 Flow Rate FiO2 05/05/25 20:09 87 22 97 Non-Rebreather 15.0 05/05/25 20:09 98.0 87 22 131/95 (107) 97 98.0 05/05/25 19:48 119 05/05/25 18:42 117 20 138/101 (113) 90 05/05/25 15:46 119 05/05/25 15:46 98.2 112 16 123/82 97 98.2 Laboratory Tests Test 05/05/25 20:00 White Blood Count 8.4 10^3/uL (4.4-10.8) Medications Medications Dose Ordered Sig/Liudmila Route Start Time Stop Time Status Last Admin Dose Admin Aspirin 162 mg ONCE ONCE PO 05/05/25 19:15 05/05/25 19:21 DC 05/05/25 20:21 Departure 1 Departure Time of Disposition: 21:42 Impression: Primary Impression: Pleuritic chest pain Additional Impressions: Elevated d-dimer Elevated troponin Disposition: ADMITTED INPATIENT Admit to: [facility] Condition: Guarded Critical Care Note Critical Care Time?: No Stability Stability form required: Yes Heart Score Heart Score: Heart Score Response (Comments) Value History Moderate Suspicious 1 EKG Repolarization Disturb 1 Age >65 2 Risk Factors 1 or 2 risk factors 1 Troponin >3 x's Normal limit 2 Total 7 I personally scribed for THEO SALDANA MD ([email or web address]) on 05/05/25 at 19:48. Electronically submitted by Amari Mejia ([email or web address]). THEO SALDANA MD May 05, 2025 19:48
--- NOTE | 2025-05-05 20:01 | DVH ---
XY CHEST TWO VIEWS ROUTINE CLINICAL HISTORY: Chest pain COMPARISON: 04/12/2025 TECHNIQUE: Frontal and lateral view of the chest was obtained FINDINGS: Lines and Tubes: None Lungs: No focal consolidation. Pleura: No effusion. No pneumothorax. Cardiomediastinal contours: Unremarkable Bones: No acute osseous abnormality. IMPRESSION: 1. No active disease 2. No significant change from 04/12/2025
[2025-05-05] MEDS: SODIUM CHLORIDE 0.9% 1,000 ML IVB ONE (20:16)
[2025-05-05] MEDS: SODIUM CHLORIDE 0.9% 1,000 ML IV ONE (20:16)
[2025-05-05 20:38] LABS: Hematocrit 38.6 % (41.0-53.0); Hemoglobin 13.0 g/dL (13.5-17.5); Mean Corpuscular Hemoglobin 28.9 pg (28.0-32.0); Mean Corpuscular Volume 86.2 fL (80.0-100.0); Nucleated Red Blood Cells % 0.1 %
[2025-05-05 20:43] LABS: Alanine Aminotransferase 20 U/L (7-40); Albumin 4.2 g/dL (3.2-4.8); Anion Gap 12 (5-15); BUN/Creatinine Ratio 18.7 (10.0-20.0); Calcium 9.0 mg/dL (8.7-10.4); Carbon Dioxide 25 mmol/L (20-31); Chloride 104 mmol/L (98-107); Glucose 95 mg/dL (74-106); Magnesium 2.1 mg/dL (1.6-2.6); Potassium 4.7 mmol/L (3.5-5.1); Sodium 141 mmol/L (136-145); Total Protein 8.1 g/dL (5.7-8.2)
[2025-05-05 20:45] LABS: Alkaline Phosphatase 133 U/L (46-116); Bilirubin, Total 0.3 mg/dL (0.2-1.0); Blood Urea Nitrogen 43 mg/dL (9-23)
[2025-05-05 20:58] LABS: INR 1.06 (0.9-1.15); Partial Thromboplastin Time 27.3 SEC (24.5-34.5); Prothrombin Time 11.2 sec (9.3-11.8)
[2025-05-05] MEDS ORDERED: ENOXAPARIN SOD 40 MG/0.4 ML SYRINGE SC ONE (21:45)
[2025-05-05] MEDS ORDERED: ONDANSETRON HCL 4 MG/2 ML VIAL IV PRN (22:00)
[2025-05-05] MEDS ORDERED: MORPHINE SULFATE 4 MG/ML SYR/VIAL IV PRN (22:00)
[2025-05-05 22:30] LABS: Base Excess -1.6 mmol/L (-2.0-3.0)
--- NOTE | 2025-05-05 22:42 | DVHINCON2 ---
Date of service: May 05, 2025 Referring Physician Tj Reason for Consultation Chest pain History of Present Illness This is a 74-year-old male with a past medical history of asthma, CHF, COPD, dementia, hypertension, TIA who presented to the ED with a complaint of abdominal pain. Patient reports on having right sided rib pain for the past three days which has been constant. CBC normal, Trop 1423, D-Dimer 6.29, GFR 23. Chest x-ray showed no acute pathology. EKG shows sinus tachycardia, VR 119. Patient was admitted to the hospital. I am asked to consult on this patient. Family History: FH: respiratory disease G8 MOTHER, Hypertension G8 FATHER, Allergies: Coded Allergies: NO KNOWN ALLERGIES (Unverified , 10/14/24) Home Meds Active Scripts Albuterol Sulfate (Albuterol Sulfate Hfa) 108 Mcg/Act Aer, 108 MCG IN Q4HPRN PRN, #1 AER Prov:PAZ POTTER MD 11/22/24 Levofloxacin Hemihydrate (LEVAQUIN 500 MG) 500 Mg Tab, 1 TAB PO DAILY, #7 TAB Prov:PAZ POTTER MD 11/22/24 Methylprednisolone (Medrol Dosepak) 4 Mg Vladimir, 4 MG PO UD, #21 TAB UAD Prov:PAZ POTTER MD 11/22/24 Albuterol Sulfate (VENTOLIN MDI) 90 Mcg Ih, 90 MCG IN Q6HPRN PRN, #1 INH Prov:LIANA NOGUEIRA MD 10/17/24 Lisinopril (Lisinopril) 20 Mg Tab, 1 TAB PO DAILY, #30 TAB 5 Refills Prov:LIANA NOGUEIRA MD 10/17/24 Review of Systems Constitutional: denies: chills, diaphoresis, fatigue, fever, malaise, sweats, weakness, others EENTM: denies: blurred vision, double vision, ear bleeding, ear discharge, ear drainage, ear pain, ear ringing, eye pain, eye redness, hearing loss, mouth pain, mouth swelling, nasal discharge, nose bleeding, nose congestion, nose pain, photophobia, tearing, throat pain, throat swelling, voice changes, others Respiratory: denies: cough, hemoptysis, orthopnea, SOB at rest, shortness of breath, SOB with excertion, stridor, wheezing, others Cardiovascular: denies: chest pain, dizzy spells, diaphoresis, Dyspnea on ex ertion, edema, irregular heart beat, left arm pain, lightheadedness, palpitations, PND, syncope, others Gastrointestinal: denies: abdomen distended, abdominal pain, blood streaked bowels, constipated, diarrhea, dysphagia, difficulty swallowing, hematemesis, melena, nausea, poor appetite, poor fluid intake, rectal bleeding, rectal pain, vomiting, others Genitourinary: denies: burning, dysuria, flank pain, frequency, hematuria, incontinence, penile discharge, penile sore, pain, testicle pain, testicle swelling, urgency, others Neurological: denies: dizziness, fainting, headache, left sided numbness, left sided weakness, numbness, paresthesia, pre-existing deficit, right sided numbness, right sided weakness, seizure, speech problems, tingling, tremors, weakness, others Musculoskeletal: reports: others (Right-sided rib pain); denies: back pain, gout, joint pain, joint swelling, muscle pain, muscle stiffness, neck pain Integumetry: denies: bruises, change in color, change in hair/nails, dryness, laceration, lesions, lumps, rash, wounds, others Allergic/Immunocompromised: denies: Difficulty Healing, Frequent Infections, Hives, Itching, others Hematologic/Lymphatic: denies: anemia, blood clots, easy bleeding, easy bruisi ng, swollen glands, others Endocrine: denies: excessive hunger, excessive sweating, excessive thirst, exce ssive urination, flushing, intolerance to cold, intolerance to heat, unexplained weight gain, unexplained weight loss, others Psychiatric: denies: anxiety, bipolar disorder, depression, hopeless, panic disorder, schizophrenia, sleepless, suicidal, others All Other Systems: Reviewed and Negative Vital Signs Vital Signs Date Time Temp Pulse Resp B/P (MAP) Pulse Ox O2 Delivery O2 Flow Rate FiO2 05/05/25 20:09 87 22 97 Non-Rebreather 15.0 05/05/25 20:09 98.0 131/95 (107) 98.0 Physical Exam GENERAL: Alert and oriented x 3. No acute distress. Thin appearing. EYES: PERRL, EOMI. Anicteric. HENT: Moist mucous membranes. LUNGS: Clear to auscultation bilaterally. CARDIOVASCULAR: Regular rate and rhythm. ABDOMEN: Soft, nontender and nondistended. EXTREMITIES: No edema. NEUROLOGIC: No focal neurological deficits. SKIN: Warm, dry. Labs/Diagnostic Data Labs Test 05/05/25 20:00 Range/Units White Blood Count 8.4 4.4-10.8 10^3/uL Red Blood Count 4.48 L 4.5-5.90 10^6/uL Hemoglobin 13.0 L 13.5-17.5 g/dL Hematocrit 38.6 L 41.0-53.0 % Mean Corpuscular Volume 86.2 80.0-100.0 fL Mean Corpuscular Hemoglobin 28.9 28.0-32.0 pg Mean Corpuscular Hemoglobin Concent 33.5 32.0-36.0 g/dL Red Cell Distribution Width 15.6 H 11.8-14.3 % Platelet Count 260 140-450 10^3/uL Mean Platelet Volume 6.8 L 6.9-10.8 fL Neutrophils (%) (Auto) 77.4 37.0-80.0 % Lymphocytes (%) (Auto) 15.9 10.0-50.0 % Monocytes (%) (Auto) 5.6 0.0-12.0 % Eosinophils (%) (Auto) 0.9 0.0-7.0 % Basophils (%) (Auto) 0.2 0.0-2.0 % Neutrophils # (Auto) 6.5 1.6-8.6 10 ^3/uL Lymphocytes # (Auto) 1.3 0.4-5.4 10 ^3/uL Monocytes # (Auto) 0.5 0-1.3 10 ^3/uL Eosinophils # (Auto) 0.1 0-0.8 10 ^3/uL Basophils # (Auto) 0 0-0.2 10 ^3/uL Nucleated Red Blood Cells 0.1 % Prothrombin Time 11.2 9.3-11.8 sec Prothrombin Time INR 1.06 0.9-1.15 Activated Partial Thromboplast Time 27.3 24.5-34.5 SEC D-Dimer, Quantitative 6.42 H 0.0-0.49 mg/L FEU Sodium Level 141 136-145 mmol/L Potassium Level 4.7 3.5-5.1 mmol/L Chloride Level 104 98-107 mmol/L Carbon Dioxide Level 25 20-31 mmol/L Anion Gap 12 5-15 Blood Urea Nitrogen 43 H 9-23 mg/dL Creatinine 2.30 H 0.700-1.30 mg/dL Glomerular Filtration Rate Calc 29 >90 mL/min BUN/Creatinine Ratio 18.7 10.0-20.0 Serum Glucose 95 74-106 mg/dL Calcium Level 9.0 8.7-10.4 mg/dL Magnesium Level 2.1 1.6-2.6 mg/dL Total Bilirubin 0.3 0.2-1.0 mg/dL Aspartate Amino Transferase (AST) 34 13-40 U/L Alanine Aminotransferase (ALT) 20 7-40 U/L Alkaline Phosphatase 133 H 46-116 U/L Troponin I High Sensitivity 1423 *H </=54 ng/L Total Protein 8.1 5.7-8.2 g/dL Albumin 4.2 3.2-4.8 g/dL Assessment Chest pain. Elevated troponin. Plan/Recommendation I agree with your ongoing assessment and care of plan. Aspirin, Lipitor. Morphine for pain management. Additional plan as per the hospital course. A total of 45 minutes was spent reviewing the patient record, examining the patient, making a diagnostic and therapeutic plan, discussing this plan with medical personnel, following up on diagnostic studies and following the patient for clinical stability excluding any and all procedures. At least 50% of this time was spent in direct, [id number] contact. Plan discussed with: Patient ARYA WELLS MD May 05, 2025 21:56
[2025-05-05] MEDS: HEPARIN DRIP/D5W 100UNITS/ML 250 ML IV SCH (23:26)
--- NOTE | 2025-05-05 23:50 | DVH ---
CLINICAL HISTORY: rule out DVT TECHNIQUE: Color and duplex doppler imaging of the bilateral lower extremity veins was performed. Vessel compression if possible was also performed. WID: COMPARISON: None FINDINGS: Right Lower Extremity: Right common femoral vein: Normal compressibility and flow. Right femoral vein: No compression in the proximal femoral vein. Color flow is present. There is also no compression or flow in the visualized deep femoral vein, mixed echogenicity. Right popliteal vein: Normal compressibility and flow. Left Lower Extremity: Left common femoral vein: Normal compressibility and flow. Left femoral vein: Normal compressibility and flow. Left popliteal vein: Normal compressibility and flow. IMPRESSION: 1. NO SONOGRAPHIC EVIDENCE FOR DEEP VENOUS THROMBOSIS IN THE left LOWER EXTREMITY VEINS. 2. Mixed echogenicity, subacute appearing thrombus in the proximal superficial right femoral vein and in the visualized right deep femoral vein. Critical Result: DVT Findings discussed with Zachary Hamilton per the boat pilot at 05/05/2025 1131 PM, and acknowledged receipt and understanding of the findings. ..
[2025-05-06] VITALS (32 sets, daily range): BP systolic 120–171; BP diastolic 71–112; PULSE 17–122; RESP 16–45; TEMP 97.2–98.8; O2SAT 86–100
[2025-05-06] MEDS: ALBUTEROL SULF 2.5 MG/0.5ML(0.5%) NEB SOLN NEB SCH ×2 (00:32→23:55)
--- NOTE | 2025-05-06 00:43 | DVH ---
Exam: CT CT AB PEL WO CON-NO ORAL OR IV History: RUQ Pain, evaluate gallbladder and liver Comparison Study: None Technique: Multidetector spiral CT of the abdomen was performed from lung bases to pubic symphysis. Imaging was performed without IV contrast. Axial, coronal and sagittal multiplanar reformats were obtained from the axial data set by the technologist. Radiation Dose : 1. Abdomen/Pelvis: CTDIvol 5.53 mGy, DLP 323.0 mGy*cm. Findings: Evaluation of solid organs is limited due to lack of intravenous contrast use. Lung Bases: Right lower lobe subpleural pulmonary nodule laterally measuring 1.4 cm. Liver: The liver is normal in size. No focal lesions. Gallbladder and Biliary Tree: Unremarkable Spleen: Unremarkable Pancreas: The pancreas is grossly normal in appearance. Adrenal Glands: Unremarkable Kidneys: Few left renal cysts measuring up to 5.0 cm. Bladder: Grossly unremarkable for degree of distention. Bowel: The stomach is grossly normal in appearance. Small bowel and colon are normal in caliber and distribution. The appendix is not visualized; however, no secondary findings of acute appendicitis identified. Ascites: Absent Lymphadenopathy: No mesenteric, retroperitoneal or periportal lymphadenopathy. Abdominal Wall and Mesentery: Unremarkable. Vasculature: The visualized abdominal aorta is normal in size and caliber. Evaluation of abdominal and pelvic vessels is limited due to lack of intravenous contrast. Pelvic Organs: Unremarkable Musculoskeletal: No aggressive focal bony lesions, acute fractures or dislocation. IMPRESSION: No acute abdominal or pelvic findings. Right lower lobe 1.4 cm subpleural pulmonary nodule. Suggest a follow-up CT in approximately 3 months for reassessment. Radiation optimization: All CT scans at this facility use at least one of these dose optimization techniques: automated exposure control mA and/or kV adjustment per patient size (includes targeted exams where dose is matched to clinical indication) or iterative reconstruction.
[2025-05-06 00:57] LABS: Lactic Acid w/Reflex 3.2 mmol/L (0.4-2.0)
[2025-05-06] MEDS ORDERED: NITROGLYCERIN 0.4 MG SL TAB SL PRN (01:15)
[2025-05-06 02:57] LABS: Hematocrit 35.2 % (41.0-53.0); Hemoglobin 11.8 g/dL (13.5-17.5); Mean Corpuscular Hemoglobin 28.5 pg (28.0-32.0); Mean Corpuscular Volume 85.3 fL (80.0-100.0); Nucleated Red Blood Cells % 0.0 %
[2025-05-06 03:02] LABS: Chloride 106 mmol/L (98-107); Potassium 4.6 mmol/L (3.5-5.1); Sodium 141 mmol/L (136-145)
[2025-05-06 03:03] LABS: Anion Gap 13 (5-15); Carbon Dioxide 22 mmol/L (20-31)
[2025-05-06 03:08] LABS: BUN/Creatinine Ratio 24.3 (10.0-20.0); Glucose 102 mg/dL (74-106)
[2025-05-06 03:15] LABS: Blood Urea Nitrogen 42 mg/dL (9-23); Calcium 8.4 mg/dL (8.7-10.4)
--- NOTE | 2025-05-06 03:35 | DVHHP ---
ADMIT DATE: 05/06/2025 CHIEF COMPLAINT: Coming in for right upper quadrant, right lower chest region pain. HISTORY OF PRESENT ILLNESS: This is a 74-year-old male with significant past medical history for essential hypertension and COPD, who presents to Emergency Room with right upper quadrant pain. The patient says that it does not radiate anywhere. It gets worse with deep inspiration or coughing. The patient has not had any coughing spells or phlegm. He denies any fevers or chills. He has had some loose stools over the last week. He says he has been having 1 bowel movement every 7 days; however, had multiple foul-smelling bowel movements here in the Emergency Room and 1 in the lobby while waiting to be taken to a bed. The patient says in the last few months he has been getting more shortness of breath. He does have underlying history of COPD. He has been using over the last week or so 3 liters of oxygen at home. The patient has a concentrator that belongs to his , who is currently not using it and has been using it since he has been feeling more short of breath than usual. The patient again has no cough, no phlegm, no fevers or chills. Denies any nausea or vomiting, urinary frequency, urgency, burning sensation, dizziness or palpitations. PAST MEDICAL HISTORY: COPD, essential hypertension. PAST SURGICAL HISTORY: Vasectomy 30 years ago. SOCIAL HISTORY: Tobacco user, says he quit about a month ago. No alcohol. No illicit drugs. MEDICATIONS AT HOME: Per medical reconciliation. MEDICATION ALLERGIES: No known drug allergies. REVIEW OF SYSTEMS: A 10-point review of systems was covered with the patient and was negative with the exception to what was present in the history of present illness. PHYSICAL EXAMINATION: VITAL SIGNS: Temperature 97.7, pulse rate of 105, respiratory rate of 24, blood pressure 130/92 pulse ox about 98% on 6 liter Oxymizer. GENERAL: Seems to be alert and oriented x 3, in mild respiratory distress. The patient not talking in full sentences. HEENT: Normocephalic, atraumatic. Extraocular muscles are intact. Pupils are equally round and reactive to light and accommodations. Mucous membranes look slightly dry. CARDIOVASCULAR: S1, S2 positive, tachycardic rhythm. No rubs, gallops or murmurs. LUNGS: Seemed to be clear to auscultation bilaterally. No wheezing, rhonchi or rales. ABDOMEN: The patient does have tenderness elicited in the right upper quadrant on palpation. The patient otherwise has a soft abdomen. No rigidity. No abdominal guarding. No rebound. Positive for bowel sounds. EXTREMITIES: Lower extremities without lower extremity edema, clubbing or cyanosis. NEUROLOGIC: No focal deficits. Cranial nerve testing 2-12 overall seems to be intact. LABORATORY WORKUP: Shows a white count of 8.4, H and H of 13/38.6, platelet count 260,000. There is no neutrophil shift. INR of 1.06, D-dimer 6.42 with a chemistry, sodium 141,chloride 106, K 4.6, dioxide 25, anion gap of 12. BUN of 14, creatinine 2.30. Serum glucose of 95. Lactic acid of 3.2, magnesium 2.1. Total bilirubin 0.3, AST of 34, ALT of 20, alkaline phosphatase of 133. Troponins initially of 1423, repeat of 1330. Blood gas was completed, pH of 7.439, pCO2 of 32.9, pO2 of 330, bicarbonate of 21.8. This is on 15 liters, on a non-rebreather mask. Chest x-ray showed no active disease, no significant change from 04/12/2025. Venous Doppler of bilateral lower extremities shows no sonographic evidence for deep venous thrombosis and the left lower extremity veins with mixed echogenicity. Subacute-appearing thrombus in the proximal superficial right femoral vein and the visualized right deep femoral vein. CT abdomen and pelvis was also completed. It shows no acute intra-abdominal or pelvic findings. There is a right lower lobe 1.4-cm subpleural pulmonary nodule, suggestive of a followup CT in approximately 3 months for reassessment. EKG shows sinus tachycardia, ventricular rate of 119, right ventricular hypertrophy with some T-wave inversions in V1 through V4 with flattening in V5 through V6. DIAGNOSES: * Chest pain. * Elevated troponins. * Acute kidney injury. * Right lower extremity DVT. * Diarrhea. * Right lower lobe pulmonary nodules. * Essential hypertension. PLAN: The patient will be admitted to medical telemetry floor under observation for continuous cardiopulmonary monitoring. The patient presenting with pleuritic chest pain that is localized to the right lower abdominal rib cage region and associated with shortness of breath and tachypnea. The patient's pulse ox seems to be stable currently at 96% on 8 liters OxyMask. The patient did have a blood gas completed. It shows that the patient's PaO2 is over 300 on 15 liters nonrebreather mask with a pCO2 that was decreased at 32. The patient does have a positive D-dimer and patient's presentation with tachycardia is highly suspicious for pulmonary embolism. Given that the patient does have poor renal functions, he is not a good candidate at this time for any contrast CT angiogram. The patient has been ordered a V/Q scan. The patient's venous Doppler studies did show likelihood of right lower extremity femoral vein thrombus. The patient has been again initiated on heparin drip. A Pulmonology consultation has also been requested. The patient does also have elevated cardiac enzymes and likely experiencing demand-related ischemia versus NSTEMI. Cardiology consultation has been requested with Dr. Deb Bliss. Echocardiogram to be completed in the morning. The patient has been initiated on aspirin enteric coated 81 mg a day, Lipitor 40 mg a day. Additionally, patient having very foul-smelling diarrhea, multiple episodes in the ED. Stool cultures and stool wbc's and C. diff toxin has also been ordered to exclude infectious etiology. The patient again at this point has no white count or fevers to suspect any form of bacterial infection. The patient has been initiated on IV fluid hydration with normal saline at 150 mL an hour. The patient does have Zofran 4 mg IV p.r.n. q. 4 hours for nausea and vomiting, hydralazine 10 mg IV p.r.n. q. 6 hours for SBPs greater than 150 or diastolic blood pressures greater than 95. The patient has morning labs with CBC, and BMP. The patient is a full code. DVT treatment with heparin per pharmacy. Further recommendations will depend on patient's hospital progression. Juan Antonio Fenton MD LM/JORDON/MAGGY TID: [id number] RECEIPT: [id number] [facility]
[2025-05-06 06:46] LABS: INR 1.03 (0.9-1.15); Partial Thromboplastin Time 42.0 SEC (24.5-34.5); Prothrombin Time 10.9 sec (9.3-11.8)
[2025-05-06] MEDS: HEPARIN DRIP/D5W 100UNITS/ML 250 ML IV SCH ×2 (07:27→20:14)
[2025-05-06 08:44] LABS: Base Excess -2.8 mmol/L (-2.0-3.0)
--- NOTE | 2025-05-06 09:04 | CONS ---
Pharmacy Clinical Information: INCREASE HEPARIN RATE TO 11 ML/HR DUE TO APTT OF 42 PER RX PROTOCOL. NEXT APTT ON 05/06 AT 1330. DEV SHARIF CONFIRMED AND READ BACK MANDY NOGUEIRA PHARMACIST May 06, 2025 09:04
[2025-05-06 10:07] LABS: Chloride 106 mmol/L (98-107); Potassium 4.0 mmol/L (3.5-5.1); Sodium 144 mmol/L (136-145)
[2025-05-06 10:08] LABS: Anion Gap 11 (5-15); Calcium 8.8 mg/dL (8.7-10.4); Carbon Dioxide 27 mmol/L (20-31)
[2025-05-06 10:13] LABS: BUN/Creatinine Ratio 16.9 (10.0-20.0)
[2025-05-06 10:16] LABS: Blood Urea Nitrogen 30 mg/dL (9-23); Glucose 135 mg/dL (74-106)
[2025-05-06] MEDS: PIPERACILLIN-TAZOB 3.375GM 100 ML IV SCH (13:09)
[2025-05-06] MEDS: SODIUM CHLORIDE 0.9% 1,000 ML IV ONE (13:12)
--- NOTE | 2025-05-06 14:34 | DVH ---
CLINICAL INFORMATION: Pulmonary embolism. TECHNIQUE: Axial CTA images of the chest were obtained after the uneventful administration of 100 mL of Omnipaque 350 IV contrast. Coronal and sagittal reformatted images and MIP images were obtained, reviewed, and stored. One or more of the following dose reduction techniques were used: Automated exposure control. Adjustment of mA and/or kV according to patient size. CTDIvol = 32.53 mGy DLP = 415.19 mGy-cm COMPARISON: Radiographs dated 05/05/2025. Interesting many FINDINGS: Pulmonary arteries: There are bilateral pulmonary emboli, including in the right interlobar artery and extending into the proximal right lower and middle lobar and segmental branches, and in the left main pulmonary artery and extending into the left interlobar, lingular, and lower lobe branches. Aorta: No aneurysm or dissection. Cardiac: Heart size is within normal limits. There is straightening of the interventricular septum, with the right ventricle measuring slightly larger than the left, suggesting a degree of right heart strain. There is reflux of contrast into the IVC, which may be seen with a degree of right heart failure. Mediastinum/lincoln: No visualized lymphadenopathy. Lungs: Focal patchy ground-glass opacities in the right lower lobe, possible infarcts in the setting of pulmonary embolism. Small right pleural effusion. Cavitary opacity in the posterior aspect of the left upper lobe with nodular soft tissue density along its periphery, measuring up to 3.9 cm. Moderate emphysematous changes. Multiple blebs are seen in the upper lobes. Pleural parenchymal scarring in the lung apices. Chest wall: No mass or other abnormality. Upper abdomen: Visualized structures in the upper abdomen are unremarkable, although evaluation of the parenchymal organs is limited on arterial phase images. Bones: No acute fracture or suspicious intraosseous lesions. IMPRESSION: 1. Bilateral pulmonary emboli as detailed above. 2. Suspected right heart strain with straightening of the interventricular septum and right ventricle measuring larger than the left ventricle. Reflux of contrast into the IVC also noted, which may be seen with a degree of right heart failure. 3. Patchy ground-glass opacities in the right lower lobe, possible infarcts in the setting of pulmonary embolism. 4. Cavitary opacity in the posterior aspect of the left upper lobe with peripheral nodular soft tissue density. Differential considerations would include pulmonary infarct, infectious etiologies such as fungal infection or mycobacterial infection, septic embolus, or bullous disease with surrounding sc arring. Malignancy can not be excluded. Correlate with clinical findings. 5. Additional findings as described above. Critical findings Critical Result: Bilateral pulmonary emboli and evidence of right heart strain. Findings discussed with the patient's RN, Ayesha at 05/06/2025 4:31 PM DIALS INSPECTOR, and acknowledged receipt and understanding of the findings and will communicate the results to the patient's physician. ..
[2025-05-06 15:39] LABS: INR 1.06 (0.9-1.15); Partial Thromboplastin Time 49.6 SEC (24.5-34.5); Prothrombin Time 11.2 sec (9.3-11.8)
[2025-05-06] MEDS: SODIUM CHLORIDE 0.9% 1,000 ML IV SCH (15:39)
[2025-05-06 19:31] LABS: INR 1.03 (0.9-1.15); Partial Thromboplastin Time 43.2 SEC (24.5-34.5); Prothrombin Time 10.9 sec (9.3-11.8)
[2025-05-06] MEDS: methylPREDNISolone SOD SUCC 125 MG/2 ML VL ONE (20:59)
[2025-05-06] MEDS: FAMOTIDINE (10MG/ML) 2ML VL IV SCH (20:59)
[2025-05-06] MEDS: methylPREDNISolone SOD SUCC 125 MG/2 ML VL IM ONE (21:00)
--- NOTE | 2025-05-06 21:09 | DVH ---
CHEST RADIOGRAPH Indication: cp/ sob Technique: Single frontal view of the chest was obtained COMPARISON: XY CHEST TWO VIEWS ROUTINE on DOS: 05/05/25, XY CHEST PORTABLE on DOS: 04/12/25, XY CHEST PORTABLE on DOS: 11/21/24, XY CHEST PORTABLE on DOS: 10/14/24 FINDINGS: Lungs and pleural spaces are clear. Cardiac silhouette and lincoln are within normal limits. Bones and soft tissues demonstrate no significant abnormality. IMPRESSION: No acute disease.
[2025-05-06] MEDS: hydrALAZINE HCL 20 MG/ML VL IV PRN (22:00)
[2025-05-06 22:01] LABS: Base Excess -1.2 mmol/L (-2.0-3.0)
[2025-05-06 22:02] LABS: Base Excess -4.0 mmol/L (-2.0-3.0)
[2025-05-06] MEDS: methylPREDNISolone SOD SUCC 125 MG/2 ML VL IV ONE (22:09)
[2025-05-06] MEDS: ATORVASTATIN 20 MG TAB PO SCH (22:09)
--- NOTE | 2025-05-06 23:09 | DVHPN2 ---
Progress Note - Dictate Date Seen: May 06, 2025 Medical Necessity Reason Pt with a Central, PICC or Fol: No Subjective Patient was seen and evaluated in follow up. Patient is on high flow oxygen ad 8 LPM. She c/o SOB. 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 CTA chest shows bilateral pulmonary emboli and evidence of right heart strain. Patient started on heparin drip. Telemetry reviewed. vital signs Vital Sign Date Time Temp Pulse Resp B/P (MAP) Pulse Ox O2 Delivery O2 Flow Rate FiO2 05/06/25 23:00 104 28 131/84 (100) 97 05/06/25 21:00 98.8 98.8 05/06/25 20:00 Hi-Flow NC 8 N/A medications Current Medications Medications Dose Ordered Sig/Liudmila Route Start Time Stop Time Status Last Admin Dose Admin Ondansetron HCl 4 mg Q6HPRN PRN IV 05/05/25 22:00 Hold Morphine Sulfate 2 mg Q4HPRN PRN IV 05/05/25 22:00 Albuterol 2.5 mg Q6HR NEB 05/06/25 00:00 05/06/25 18:46 2.5 MG Aspirin 81 mg DAILY PO 05/06/25 10:00 05/06/25 09:13 81 MG Atorvastatin Calcium 40 mg HS PO 05/06/25 22:00 05/06/25 22:09 40 MG Nitroglycerin 0.4 mg Q5MINP PRN SL 05/06/25 01:15 Hydralazine HCl 10 mg Q6HR PRN IV 05/06/25 01:15 05/06/25 22:00 10 MG Sodium Chloride 1,000 ml @ 100 mls/hr Q10H IV 05/06/25 08:00 05/06/25 15:39 100 MLS/HR Piperacillin Sod/ Tazobactam Sod 100 ml @ 25 mls/hr Q8HR IV 05/06/25 08:45 05/06/25 22:45 25 MLS/HR Heparin Sodium/ Dextrose 250 ml @ 13 mls/hr [id number] IV 05/06/25 19:45 05/06/25 20:14 13 MLS/HR Methylprednisolone Sodium Succinate 40 mg Q8HR IV 05/07/25 06:00 Famotidine 20 mg Q12HR IV 05/06/25 22:00 11/8/25 20:59 20 MG objective GENERAL: Alert and oriented x 3. No acute distress. Thin appearing. EYES: PERRL, EOMI. Anicteric. HENT: Moist mucous membranes. LUNGS: Clear to auscultation bilaterally. CARDIOVASCULAR: Regular rate and rhythm. ABDOMEN: Soft, nontender and nondistended. EXTREMITIES: No edema. NEUROLOGIC: No focal neurological deficits. SKIN: Warm, dry. laboratory and microbiology Laboratory Tests 05/06/25 09:05 05/06/25 02:27 Test 05/06/25 09:05 Range/Units Serum Glucose 135 H 74-106 mg/dL Problem List Chest pain. Elevated troponin. Assessment/Plan Continued all current supportive medical care. Aspirin, Lipitor. Heparin drip per pharmacy. IV Hydralazine for SBP >150. Morphine for pain management. IV antibiotics as ordered. Additional plan as per the hospital course. Plan discussed with: Patient ARYA WELLS MD May 06, 2025 23:09
--- NOTE | 2025-05-06 23:38 | DVHINCON2 ---
Date of service: May 06, 2025 Referring Physician Juan Antonio Fenton MD Reason for Consultation Acute hypoxic respiratory failure, pulmonary nodule and right lower extremity DVT. History of Present Illness This is a 74-year-old man with past medical history of COPD and hypertension presented to ED on 05/05/25 with c/o right upper quadrant pain. Pt described pain as nonradiating, worse with deep inspiration or coughing. He has not had any coughing spells or phlegm. Pt also c/o shortness of breath, worsening over the past few months. He has been using 3 LPM oxygen at home over the past week or so (using his 's concentrator). No fevers or chills. He has had some loose stools over the past week. He reported having 1 bowel movement every 7 days; however, had multiple foul-smelling bowel movements while in ER and one in the lobby while waiting to be taken to a bed. Patient was admitted for further care. Pulmonary consultation is requested for evaluation and management of acute hypoxic respiratory failure, pulmonary nodule and right lower extremity DVT. Review of Systems: 14-point review of systems negative unless otherwise noted above. Past Medical History: COPD and essential hypertension. Past Surgical History: Vasectomy 30 years ago. Medications: Reviewed. Allergies: No known drug allergies. Family History: Positive for respiratory disease. Social History: Former smoker, he quit about a month ago. No alcohol or illicit drug use. Family History: FH: respiratory disease G8 MOTHER, Hypertension G8 FATHER, Allergies: Coded Allergies: NO KNOWN ALLERGIES (Unverified , 10/14/24) Home Meds Active Scripts Albuterol Sulfate (Albuterol Sulfate Hfa) 108 Mcg/Act Aer, 108 MCG IN Q4HPRN PRN, #1 AER Prov:PAZ POTTER MD 11/22/24 Albuterol Sulfate (VENTOLIN MDI) 90 Mcg Ih, 90 MCG IN Q6HPRN PRN, #1 INH Prov:LIANA NOGUEIRA MD 10/17/24 Current Medications Current Medications Medications (Trade) Dose Ordered Sig/Liudmila Route PRN Reason Start Time Stop Time Status Last Admin Albuterol (Ventolin Medneb) 2.5 mg Q6HR NEB 05/06/25 00:00 05/06/25 23:08 DC 05/06/25 18:46 Aspirin 81 mg DAILY PO 05/06/25 10:00 05/06/25 09:13 Atorvastatin Calcium (Lipitor) 40 mg HS PO 05/06/25 22:00 05/06/25 22:09 Nitroglycerin (Ntrostat Sublingual) 0.4 mg Q5MINP PRN SL FOR CHEST PAIN 05/06/25 01:15 Hydralazine HCl (Apresoline Injection) 10 mg Q6HR PRN IV SBP>150 or DBP>95 05/06/25 01:15 05/06/25 22:00 Heparin Sodium/ Dextrose 250 ml @ 11 mls/hr [id number] IV 05/06/25 07:15 05/06/25 19:40 DC 05/06/25 07:27 Sodium Chloride 1,000 ml @ 100 mls/hr Q10H IV 05/06/25 08:00 05/06/25 15:39 Piperacillin Sod/ Tazobactam Sod 100 ml @ 25 mls/hr Q8HR IV 05/06/25 08:45 05/06/25 22:45 Heparin Sodium/ Dextrose 250 ml @ 13 mls/hr [id number] IV 05/06/25 19:45 05/06/25 20:14 Methylprednisolone Sodium Succinate (Solu Medrol) 40 mg Q8HR IV 05/07/25 06:00 Famotidine (Pepcid Injection) 20 mg Q12HR IV 05/06/25 22:00 05/06/25 20:59 Albuterol (Ventolin Medneb) 2.5 mg Q4HR NEB 05/07/25 02:00 Vital Signs Vital Signs Date Time Temp Pulse Resp B/P (MAP) Pulse Ox O2 Delivery O2 Flow Rate FiO2 05/06/25 23:29 100 38 132/91 (105) 96 05/06/25 21:00 98.8 98.8 05/06/25 20:00 Hi-Flow NC 8 N/A Physical Exam Gen.: Patient lying in bed in no apparent distress. On supplemental oxygen. Head: Normocephalic, atraumatic. Eyes: EOMI/PERRLA. Ears: Normal hearing. Normal anatomy. Neck/trachea: Trachea midline, supple. Nose: Normal external anatomy. Mouth: Moist mucous membranes. Chest: Decreased air entry bilaterally. No wheezing or rhonchi. Cardiovascular: Positive S1, positive S2. Regular rate and rhythm. Abdomen: Positive bowel sounds in all 4 quadrants. Soft, non-tender, non- distended. : Deferred. Rectal: Deferred. Skin: Warm, dry. Intact. Extremities: 2+ radial pulses bilaterally. No lower extremity edema. Neuro: Awake, alert, oriented x3. No gross motor or sensory deficits. Cranial nerves II through XII intact. Gait not assessed. Labs/Diagnostic Data Labs Test 05/06/25 21:40 05/06/25 20:35 05/06/25 19:07 05/06/25 09:05 Range/Units Blood Gas Specimen Type Arterial Blood Gas Sample Site Left radial Blood Gas Patient Temperature 37.0 Arterial Blood Date Drawn Arterial Blood pH 7.399 7.350-7.450 Arterial Blood Partial Pressure CO2 33.0 L 35.0-48.0 mmHg Arterial Blood Partial Pressure O2 105.5 83.0-108.0 mmHg Arterial Blood HCO3 19.9 L 21.0-28.0 mmol/L Arterial Blood Oxygen Saturation 97.4 94.0-98.0 % Arterial Blood Base Excess -4.0 L -2.0-3.0 mmol/L Arterial Blood Oxyhemoglobin 96.6 94.0-98.0 % Arterial Blood Carboxyhemoglobin 0.4 L 0.5-1.5 % Arterial Blood Methemoglobin 0.4 0.0-1.5 % Cristobal Test Yes Blood Gas Total Hemoglobin 12.40 L 13.5-17.5 g/dL Blood Gas Liter Flow 50.00 Blood Gas Modality High flow FiO2 % 50.0 Blood Gas Comments 8l bubbler Prothrombin Time 10.9 9.3-11.8 sec Prothrombin Time INR 1.03 0.9-1.15 Activated Partial Thromboplast Time 43.2 H 24.5-34.5 SEC Sodium Level 144 136-145 mmol/L Potassium Level 4.0 3.5-5.1 mmol/L Chloride Level 106 98-107 mmol/L Carbon Dioxide Level 27 20-31 mmol/L Anion Gap 11 5-15 Blood Urea Nitrogen 30 #H 9-23 mg/dL Creatinine 1.78 H 0.700-1.30 mg/dL Glomerular Filtration Rate Calc 40 >90 mL/min BUN/Creatinine Ratio 16.9 10.0-20.0 Serum Glucose 135 H 74-106 mg/dL Calcium Level 8.8 8.7-10.4 mg/dL Test 05/06/25 02:27 05/05/25 23:01 05/05/25 22:05 05/05/25 20:00 Range/Units White Blood Count 9.4 4.4-10.8 10^3/uL Red Blood Count 4.13 L 4.5-5.90 10^6/uL Hemoglobin 11.8 L 13.5-17.5 g/dL Hematocrit 35.2 L 41.0-53.0 % Mean Corpuscular Volume 85.3 80.0-100.0 fL Mean Corpuscular Hemoglobin 28.5 28.0-32.0 pg Mean Corpuscular Hemoglobin Concent 33.4 32.0-36.0 g/dL Red Cell Distribution Width 15.6 H 11.8-14.3 % Platelet Count 223 140-450 10^3/uL Mean Platelet Volume 6.7 L 6.9-10.8 fL Neutrophils (%) (Auto) 80.5 H 37.0-80.0 % Lymphocytes (%) (Auto) 12.3 10.0-50.0 % Monocytes (%) (Auto) 5.6 0.0-12.0 % Eosinophils (%) (Auto) 1.1 0.0-7.0 % Basophils (%) (Auto) 0.5 0.0-2.0 % Neutrophils # (Auto) 7.6 1.6-8.6 10 ^3/uL Lymphocytes # (Auto) 1.2 0.4-5.4 10 ^3/uL Monocytes # (Auto) 0.5 0-1.3 10 ^3/uL Eosinophils # (Auto) 0.1 0-0.8 10 ^3/uL Basophils # (Auto) 0 0-0.2 10 ^3/uL Nucleated Red Blood Cells 0.0 % Lactic Acid Level 2.2 *H 0.4-2.0 mmol/L Troponin I High Sensitivity 1330 *H </=54 ng/L Blood Gas Critical Value Read Back yes Blood Gas Notified Whom Md lei doty Blood Gas Notified Time [id number] Blood Gas Notified By military science teacher dimitrios delgado D-Dimer, Quantitative 6.42 H 0.0-0.49 mg/L FEU Magnesium Level 2.1 1.6-2.6 mg/dL Total Bilirubin 0.3 0.2-1.0 mg/dL Aspartate Amino Transferase (AST) 34 13-40 U/L Alanine Aminotransferase (ALT) 20 7-40 U/L Alkaline Phosphatase 133 H 46-116 U/L Total Protein 8.1 5.7-8.2 g/dL Albumin 4.2 3.2-4.8 g/dL Assessment Impression: Acute hypoxic respiratory failure Dependence on supplemental oxygen Chest pain Elevated troponins Right lower extremity DVT Pulmonary nodule, right lower lobe Acute kidney injury Hx of nicotine dependence Plan: Supplemental oxygen Titrate to keep O2 sats above 92%. On 6 LPM Oxymizer Taper O2 as tolerated Chest x-ray showed no active disease, no significant change from 04/12/2025. Venous Doppler of bilateral lower extremities revealed subacute-appearing thrombus in the proximal superficial right femoral vein and the visualized right deep femoral vein. CT abdomen and pelvis showed no acute intra-abdominal or pelvic findings. A right lower lobe 1.4-cm subpleural pulmonary nodule is present. Recommend followup CT in approximately 3 months. Heparin drip for DVT. Plan for CTA to rule out pulmonary embolism. Bronchodilators. Antibiotics IV steroids Follow up Cardiology recs Fluid/salt restriction Monitor renal function. Monitor electrolytes. Supplement as necessary. Monitor ins and outs. Strict ins and outs. Pain control Avoid oversedation DVT prophylaxis. Prognosis: Poor given patient's multiple co-morbidities. Rest of plan per hospitalist and other consultants. Thank you, Dr. Fenton, for allowing me to participate in this patient's care. Further recommendations will depend on the patient's clinical course. Please do not hesitate to contact me if you have any questions or concerns. This medical document was created using an electronic medical record system with [employer] dictation system. Although these documentations are being carefully reviewed, there may still be some phonetic and typographical changes. The errors are purely typographical, due to imperfection on the software program, and do not reflect any compromise in the patient's medical care. Plan discussed with: Other (RN/MD) JAMES BARRERA [facility] May 06, 2025 23:38
--- NOTE | 2025-05-06 23:42 | DVH ---
Right lower extremity venous duplex Clinical History: possible effusion Comparison: XY CHEST PORTABLE on DOS: 05/06/25, CT CT ANGIO CHEST CONTRAST on DOS: 05/06/25, XY CHEST TWO VIEWS ROUTINE on DOS: 05/05/25, XY CHEST PORTABLE on DOS: 04/12/25, XY CHEST PORTABLE on DOS: 11/21/24 Technique: Targeted ultrasound of both the right and left chest was performed. Findings: Trace right sided pleural effusion. No appreciable left-sided effusion. Impression: Trace right-sided pleural effusion.
[2025-05-07] VITALS (76 sets, daily range): BP systolic 104–149; BP diastolic 52–104; PULSE 88–123; RESP 13–37; TEMP 98.3–98.8; O2SAT 80–100
[2025-05-07] MEDS: IPRATROPIUM BROM 0.5 MG/2.5ML INH SOL NEB SCH (01:34)
[2025-05-07 02:36] LABS: INR 1.03 (0.9-1.15); Prothrombin Time 10.9 sec (9.3-11.8)
[2025-05-07 02:49] LABS: Partial Thromboplastin Time 74.9 SEC (24.5-34.5)
[2025-05-07 03:56] LABS: Hematocrit 34.1 % (41.0-53.0); Hemoglobin 11.4 g/dL (13.5-17.5); Mean Corpuscular Hemoglobin 28.5 pg (28.0-32.0); Mean Corpuscular Volume 85.3 fL (80.0-100.0); Nucleated Red Blood Cells % 0.0 %
[2025-05-07 04:07] LABS: Potassium 4.8 mmol/L (3.5-5.1); Sodium 141 mmol/L (136-145)
[2025-05-07 04:08] LABS: Anion Gap 9 (5-15); Carbon Dioxide 23 mmol/L (20-31)
[2025-05-07 04:09] LABS: Calcium 8.7 mg/dL (8.7-10.4); Chloride 109 mmol/L (98-107)
[2025-05-07 04:14] LABS: BUN/Creatinine Ratio 20.6 (10.0-20.0)
[2025-05-07 04:35] LABS: Blood Urea Nitrogen 27 mg/dL (9-23); Glucose 202 mg/dL (74-106)
--- NOTE | 2025-05-07 06:45 | DVHPN2 ---
Progress Note Date Seen: May 07, 2025 Medical Necessity Reason Pt with a Central, PICC or Fol: No Subjective Patient reports: Other Review of Systems: CVS:Abnormal, RESPIRATORY:Abnormal, GI:Normal Objective vital signs Vital Sign Date Time Temp Pulse Resp B/P (MAP) Pulse Ox O2 Delivery O2 Flow Rate FiO2 05/07/25 04:45 105 15 134/86 (102) 100 05/07/25 04:00 Hi-Flow Heated NC+ 50 40 40 05/07/25 00:00 98.5 98.5 Total Intake and Output 05/06/25 05/06/25 05/07/25 15:00 23:00 07:00 Intake Total 72 ml 1182 ml 665 ml Output Total 200 ml 850 ml Balance -128 ml 332 ml 665 ml medications Current Medications Medications Dose Ordered Sig/Liudmila Route Start Time Stop Time Status Last Admin Dose Admin Ondansetron HCl 4 mg Q6HPRN PRN IV 05/05/25 22:00 Hold Morphine Sulfate 2 mg Q4HPRN PRN IV 05/05/25 22:00 Aspirin 81 mg DAILY PO 05/06/25 10:00 05/06/25 09:13 81 MG Atorvastatin Calcium 40 mg HS PO 05/06/25 22:00 05/06/25 22:09 40 MG Nitroglycerin 0.4 mg Q5MINP PRN SL 05/06/25 01:15 Hydralazine HCl 10 mg Q6HR PRN IV 05/06/25 01:15 05/06/25 22:00 10 MG Sodium Chloride 1,000 ml @ 100 mls/hr Q10H IV 05/06/25 08:00 05/06/25 15:39 100 MLS/HR Piperacillin Sod/ Tazobactam Sod 100 ml @ 25 mls/hr Q8HR IV 05/06/25 08:45 05/06/25 22:45 25 MLS/HR Heparin Sodium/ Dextrose 250 ml @ 13 mls/hr [id number] IV 05/06/25 19:45 05/06/25 20:14 13 MLS/HR Methylprednisolone Sodium Succinate 40 mg Q8HR IV 05/07/25 06:00 Famotidine 20 mg Q12HR IV 05/06/25 22:00 05/06/25 20:59 20 MG Albuterol 2.5 mg Q4HR NEB 05/07/25 02:00 05/07/25 01:34 2.5 MG Ipratropium [place] 0.5 mg Q4HR NEB 05/07/25 02:00 05/07/25 01:34 0.5 MG Examination: GENERAL:Normal, HEENT:Normal, LUNGS:Abnormal, CVS:Abnormal, ABDOMEN:Normal laboratory and microbiology Laboratory Tests 05/07/25 03:04 Test 05/07/25 03:04 Range/Units Serum Glucose 202 H 74-106 mg/dL Problem List/Assessment/Plan Problem List/Assessment/Plan 1) Acute respiratory failure 2) Acute B/L PE 3) Acute RLE DVT 4) RV strain 5) NSTEMI 6) Lactic acidemia 7) COPD 8) HTN plan; 05/07----patient transferred to ICU last night for increased work of breathing and now is on 50% HFNC, heparin gtt still infusing, echo complete but not read yet, on IVF hydration, nebs q4h, IV steroids, IR consult ordered for evaluation for thrombectomy likely will not be evaluated by IR until tomorrow Tuesday 05/08, continue all care, cardio/pulmonary consults on board and following, daily labs, supportive care, will follow along Plan discussed with: Other (n) PAZ POTTER MD May 07, 2025 06:45
[2025-05-07] MEDS: methylPREDNISolone SOD SUCC 40 MG/ML VL IV SCH (07:38)
[2025-05-07] MEDS: IOHEXOL 350 MG/ML 100ML IJ ONE ×2 (10:09)
--- NOTE | 2025-05-07 10:42 | DVHSR ---
APPROVED REPORT EXAM: Two-dimensional and M-mode echocardiogram with Doppler and color Doppler. Blood Pressure: 133/86 mmHg INDICATION Evaluate for any wall motion abnormalities. RISK FACTORS Height: 6'0", Weight: 147 DIMENSIONS LVDd 3.2 (3.8-5.7cm) LA (2D) 3.7 (1.9-4.0cm) Aortic Root 4.0 (2.0-3.7cm) LVDs 2.4 (2.5-4.0cm) LA (MM) (1.9-4.0cm) Aortic Cusp Exc 1.5 (1.5-2.0cm) EF (%) 52.0 (55-70%) Rt. Atrium 5.9 (1.9-4.0cm) Asc. Aorta cm IVSd 1.2 (0.7-1.1cm) RV (D) (1.8-2.4cm) PWd 1.3 (0.7-1.1cm) Mitral Valve Mitral Mitral Stenosis E wave 0.35m/s MV Mean GR. mmHg A wave 0.72m/s MV Peak GR. mmHg E/A ratio 0.5 2D MVA cm2 DECEL Time 195ms PRESS 1/2 Time ms Aortic Valve Aortic Valve Aortic Stenosis V1 0.69m/s AO Mean GR. 2mmHg V2 0.89m/s AO Peak GR. 3mmHg LVOT Diameter 2.2 (1.8-2.4cm) Doppler DENNIS 2.95cm2 Pulmonic Valve V2 0.48m/s Tricuspid Valve TR Velocity 3.30m/s RVSP 51mmHg Other Information Quality : Rhythm : Tachycardia Technically limited study due to body habitus. Conclusion RVE MARKED DANIEL MOD PAH EF 55% PARADOXICAL SEPTAL MOTION MOD TR LVH
--- NOTE | 2025-05-07 11:06 | DVHPN2 ---
Progress Note - Dictate Date Seen: May 07, 2025 Medical Necessity Reason Pt with a Central, PICC or Fol: No Subjective Patient was seen and evaluated in follow up in the ICU. The patient transferred to ICU last night for increased work of breathing and now is on 50% HFNC. Patient continued on heparin drip. Pending eval with IR for evaluation for thrombectomy. BUN 27, Radioisotope Technician 1.31. Telemetry reviewed. vital signs Vital Sign Date Time Temp Pulse Resp B/P (MAP) Pulse Ox O2 Delivery O2 Flow Rate FiO2 05/07/25 09:00 95 19 98 05/07/25 08:00 Hi-Flow Heated NC+ 50 40 40 05/07/25 08:00 98.5 98.5 Total Intake and Output 05/06/25 05/06/25 05/07/25 15:00 23:00 07:00 Intake Total 72 ml 1182 ml 1304 ml Output Total 200 ml 850 ml 650 ml Balance -128 ml 332 ml 654 ml medications Current Medications Medications Dose Ordered Sig/Liudmila Route Start Time Stop Time Status Last Admin Dose Admin Ondansetron HCl 4 mg Q6HPRN PRN IV 05/05/25 22:00 Hold Morphine Sulfate 2 mg Q4HPRN PRN IV 05/05/25 22:00 Aspirin 81 mg DAILY PO 05/06/25 10:00 05/07/25 10:09 81 MG Atorvastatin Calcium 40 mg HS PO 05/06/25 22:00 05/06/25 22:09 40 MG Nitroglycerin 0.4 mg Q5MINP PRN SL 05/06/25 01:15 Hydralazine HCl 10 mg Q6HR PRN IV 05/06/25 01:15 05/06/25 22:00 10 MG Sodium Chloride 1,000 ml @ 100 mls/hr Q10H IV 05/06/25 08:00 05/06/25 15:39 100 MLS/HR Piperacillin Sod/ Tazobactam Sod 100 ml @ 25 mls/hr Q8HR IV 05/06/25 08:45 05/07/25 07:38 25 MLS/HR Heparin Sodium/ Dextrose 250 ml @ 13 mls/hr [id number] IV 05/06/25 19:45 05/06/25 20:14 13 MLS/HR Methylprednisolone Sodium Succinate 40 mg Q8HR IV 05/07/25 06:00 05/07/25 07:38 40 MG Famotidine 20 mg Q12HR IV 05/06/25 22:00 05/07/25 10:09 20 MG Albuterol 2.5 mg Q4HR NEB 05/07/25 02:00 05/07/25 09:38 2.5 MG Ipratropium [place] 0.5 mg Q4HR NEB 05/07/25 02:00 05/07/25 09:38 0.5 MG objective GENERAL: Alert and oriented x 3. No acute distress. Thin appearing. EYES: PERRL, EOMI. Anicteric. HENT: Moist mucous membranes. LUNGS: Decreased breath sounds. CARDIOVASCULAR: Regular rate and rhythm. ABDOMEN: Soft, nontender and nondistended. EXTREMITIES: No edema. NEUROLOGIC: No focal neurological deficits. SKIN: Warm, dry. laboratory and microbiology Laboratory Tests 05/07/25 03:04 Test 05/07/25 03:04 Range/Units Serum Glucose 202 H 74-106 mg/dL Problem List Acute respiratory failure. Acute B/L PE. Acute RLE DVT. RV strain. NSTEMI. Chest pain. Lactic acidemia. COPD. HTN. Assessment/Plan Continued all current supportive medical care. Aspirin, Lipitor. Heparin drip per pharmacy. IV Hydralazine for SBP >150. Morphine for pain management. IV antibiotics as ordered. Additional plan as per the hospital course. Critical care time of 45 minutes provided to include time spent evaluation of patient at bedside, when appropriate patient/family education for diagnosis, treatment plan, review of pertinent medical information and discussion of care with specialty providers and PCP. Plan discussed with: Patient ARYA WELLS MD May 07, 2025 11:06
[2025-05-07 11:58] LABS: INR 1.03 (0.9-1.15); Prothrombin Time 10.9 sec (9.3-11.8)
[2025-05-07 12:11] LABS: Partial Thromboplastin Time 75.1 SEC (24.5-34.5)
[2025-05-07 14:43] LABS: INR 1.03 (0.9-1.15); Prothrombin Time 10.9 sec (9.3-11.8)
[2025-05-07 14:54] LABS: Partial Thromboplastin Time 117.3 SEC (24.5-34.5)
--- NOTE | 2025-05-07 15:02 | CONS ---
Pharmacy Clinical Information: DECREASE HEPARIN RATE TO 10 ML/HR DUE TO APTT OF 117.3 PER RX PROTOCOL. NEXT APTT ON 05/07 AT 1999. DEV GUERRERO CONFIRMED AND READ BACK MANDY NOGUEIRA PHARMACIST May 07, 2025 15:02
[2025-05-07] MEDS: HEPARIN DRIP/D5W 100UNITS/ML 250 ML IV SCH (16:10)
[2025-05-07 20:25] LABS: INR 1.03 (0.9-1.15); Partial Thromboplastin Time 62.9 SEC (24.5-34.5); Prothrombin Time 10.9 sec (9.3-11.8)
[2025-05-07] MEDS: FAMOTIDINE (10MG/ML) 2ML VL IV SCH (22:30)
--- NOTE | 2025-05-07 23:41 | DVHPN2 ---
Progress Note - Dictate Date Seen: May 07, 2025 Medical Necessity Reason Pt with a Central, PICC or Fol: No Subjective DOS: 05/07/2025 Patient seen and examined at bedside. Remains on supplemental oxygen Overnight events reviewed. vital signs Vital Sign Date Time Temp Pulse Resp B/P (MAP) Pulse Ox O2 Delivery O2 Flow Rate FiO2 05/07/25 22:46 116 20 99 05/07/25 22:36 Nasal Cannula* 2 28 05/07/25 21:40 98.6 132/90 (104) 98.6 Total Intake and Output 05/06/25 05/06/25 05/07/25 15:00 23:00 07:00 Intake Total 72 ml 1182 ml 1304 ml Output Total 200 ml 850 ml 650 ml Balance -128 ml 332 ml 654 ml medications Current Medications Medications Dose Ordered Sig/Liudmila Route Start Time Stop Time Status Last Admin Dose Admin Ondansetron HCl 4 mg Q6HPRN PRN IV 05/05/25 22:00 Hold Morphine Sulfate 2 mg Q4HPRN PRN IV 05/05/25 22:00 Aspirin 81 mg DAILY PO 05/06/25 10:00 05/07/25 10:09 81 MG Atorvastatin Calcium 40 mg HS PO 05/06/25 22:00 05/07/25 22:31 40 MG Nitroglycerin 0.4 mg Q5MINP PRN SL 05/06/25 01:15 Hydralazine HCl 10 mg Q6HR PRN IV 05/06/25 01:15 05/06/25 22:00 10 MG Sodium Chloride 1,000 ml @ 100 mls/hr Q10H IV 05/06/25 08:00 05/07/25 14:10 100 MLS/HR Piperacillin Sod/ Tazobactam Sod 100 ml @ 25 mls/hr Q8HR IV 05/06/25 08:45 05/07/25 22:30 25 MLS/HR Albuterol 2.5 mg Q4HR NEB 05/07/25 02:00 05/07/25 22:36 2.5 MG Ipratropium [place] 0.5 mg Q4HR NEB 05/07/25 02:00 05/07/25 22:37 0.5 MG Methylprednisolone Sodium Succinate 40 mg Q12HR IV 05/08/25 10:00 Heparin Sodium/ Dextrose 250 ml @ 10 mls/hr Q24H IV 05/07/25 16:15 05/07/25 16:10 10 MLS/HR Famotidine 10 mg Q12HR IV 05/07/25 22:00 05/07/25 22:30 10 MG objective Gen.: Patient lying in bed in no apparent distress. On supplemental oxygen. Head: Normocephalic, atraumatic. Eyes: EOMI/PERRLA. Ears: Normal hearing. Normal anatomy. Neck/trachea: Trachea midline, supple. Nose: Normal external anatomy. Mouth: Moist mucous membranes. Chest: Decreased air entry bilaterally. No wheezing or rhonchi. Cardiovascular: Positive S1, positive S2. Regular rate and rhythm. Abdomen: Positive bowel sounds in all 4 quadrants. Soft, non-tender, non- distended. : Deferred. Rectal: Deferred. Skin: Warm, dry. Intact. Extremities: 2+ radial pulses bilaterally. No lower extremity edema. Neuro: Awake, alert, oriented x3. No gross motor or sensory deficits. Cranial nerves II through XII intact. Gait not assessed. laboratory and microbiology Laboratory Tests 05/07/25 03:04 Test 05/07/25 03:04 Range/Units Serum Glucose 202 H 74-106 mg/dL Assessment/Plan Impression: Acute hypoxic respiratory failure Dependence on supplemental oxygen Chest pain Elevated troponins Right lower extremity DVT Pulmonary nodule, right lower lobe Acute kidney injury Hx of nicotine dependence Pulmonary embolism, bilateral Events: Remains on supplemental oxygen Currently on high flow at flow rate 50 LPM, FiO2 40% Taper O2 as tolerated, transition to low flow O2 CT angiogram on 05/06/25 reviewed, demonstrates bilateral pulmonary emboli and evidence of right heart strain. See report for full details. Continue heparin drip for PE/DVT. Continue IV steroids - taper to q.12 hours Continue antibiotics Continue bronchodilators Echocardiogram reviewed, demonstrates RVSP 51 mmHg; EF 55%. Cardiology recs appreciated Labs and imaging reviewed. Rest of plan as noted below. Plan: Supplemental oxygen Titrate to keep O2 sats above 92%. Monitor respiratory status closely d/t increased oxygen requirements. Chest x-ray showed no active disease, no significant change from 04/12/2025. Venous Doppler of bilateral lower extremities revealed subacute-appearing thrombus in the proximal superficial right femoral vein and the visualized right deep femoral vein. CT abdomen and pelvis showed no acute intra-abdominal or pelvic findings. A right lower lobe 1.4-cm subpleural pulmonary nodule is present. Recommend followup CT in approximately 3 months. Heparin drip for DVT and PE. Bronchodilators. Antibiotics IV steroids Follow up Cardiology recs Fluid/salt restriction Monitor renal function. Monitor electrolytes. Supplement as necessary. Monitor ins and outs. Strict ins and outs. Pain control Avoid oversedation DVT prophylaxis. Prognosis: Poor given patient's multiple co-morbidities. Rest of plan per hospitalist and other consultants. Thank you, Dr. Fenton, for allowing me to participate in this patient's care. Further recommendations will depend on the patient's clinical course. Please do not hesitate to contact me if you have any questions or concerns. This medical document was created using an electronic medical record system with [employer] dictation system. Although these documentations are being carefully reviewed, there may still be some phonetic and typographical changes. The errors are purely typographical, due to imperfection on the software program, and do not reflect any compromise in the patient's medical care. Plan discussed with: Other (DEV Way) Critical Care Time(min): 35 JAMES BARRERA [facility] May 07, 2025 23:41
[2025-05-08] VITALS (22 sets, daily range): BP systolic 123–171; BP diastolic 87–111; PULSE 92–113; RESP 16–20; TEMP 36.8; O2SAT 87–100
[2025-05-08 04:04] LABS: INR 1.01 (0.9-1.15); Partial Thromboplastin Time 59.4 SEC (24.5-34.5); Prothrombin Time 10.7 sec (9.3-11.8)
[2025-05-08 09:01] LABS: Hematocrit 33.2 % (41.0-53.0); Hemoglobin 10.7 g/dL (13.5-17.5); Mean Corpuscular Hemoglobin 27.6 pg (28.0-32.0); Mean Corpuscular Volume 85.5 fL (80.0-100.0); Nucleated Red Blood Cells % 0.0 %
[2025-05-08 09:14] LABS: Potassium 4.9 mmol/L (3.5-5.1); Sodium 142 mmol/L (136-145)
[2025-05-08 09:15] LABS: Anion Gap 9 (5-15); Calcium 8.9 mg/dL (8.7-10.4); Carbon Dioxide 23 mmol/L (20-31)
[2025-05-08 09:20] LABS: BUN/Creatinine Ratio 17.5 (10.0-20.0); Blood Urea Nitrogen 22 mg/dL (9-23); Chloride 110 mmol/L (98-107); Glucose 142 mg/dL (74-106)
[2025-05-08] MEDS: methylPREDNISolone SOD SUCC 40 MG/ML VL IV SCH (10:17)
[2025-05-08 10:31] LABS: Hepatitis B Surface Antigen Negative (Negative)
[2025-05-08 10:52] LABS: Hepatitis C Antibody Negative (Negative)
[2025-05-08] MEDS ORDERED: APIX5TAB PO (11:26)
[2025-05-08 11:31] LABS: INR 0.97 (0.9-1.15); Partial Thromboplastin Time 33.7 SEC (24.5-34.5); Prothrombin Time 10.3 sec (9.3-11.8)
--- NOTE | 2025-05-08 12:39 | DVHDS2 ---
New Physician D'charge PN Admitting Diagnosis Admitting Diagnosis PE/DVT Discharge Diagnosis PE DVT Operations or Procedures none Reason(s) For Hospitalization Surgery Hospital Course 74 M coming to ER for SOB progressively worsening over the last few days. He has a hx of COPD but apparently does not use o2 at home. He was noted to have RLE DVT and CTA revealed B/L PE with RV strain. He was admitted and started on IV heparin gtt continuous infusion. Cardiology was consulted and echo showed EF 55% with PAH. Pulmonary was consulted and he was kept on IV steroids and nebs and his o2 requirements initially increased requiring HFNC and transfer to ICU. He had a Cr of 1.7 on admission and was hydrated with IV fluids and now Cr has normalized. He was kept on heparin gtt since admission and was evaluated by IR who felt the PE was chronic in nature and did NOT recommend thrombectomy given chronicity and the fact the patient was improving clinically. He has been downgraded out of the ICU and is now off HFNC and maintained on o2 2L via NC. His chem panel has normalized and WBC this AM was 14k however this is likely steroid induced given he was on solumdrol IV. Nonetheless the heparin gtt was turned off and patient was transitioned to PO eliquis as per DVT/PE protocol. Home o2 has been delivered to bedside for the patient to have at home at 2- 3L/min via NC and prescription for PO eliquis has been sent to patients pharmacy on file as per PE/DVT protocol. [facility] to arrange for HH and outpt pulmonary follow up. Patient to be dc home today. Treatment Plan Discharge Condition of Discharge Good Disposition Home with Health Services Discharge Instructions Diet: Cardiac 2g Na,low cholest Activity: No Restrictions, As Tolerated Medications: see med sheet Follow Up Care Follow Up/Referral: pcp pulmonary Discharge Statement: "Patient was advised to return to the ER or call 911 if any headaches, dizziness, shortness of breath, chest pain, abdominal pain, bleeding, fevers, or worsening of medical condition. Patient was counseled about treatment plan, medications, possible side effects, patientverbalized understanding. All questions were answered to the best of my ability. This discharge took greater then 30 minutes in planning, reviewing documentation, counseling the patient, and discussing with other team members." PAZ POTTER MD May 08, 2025 12:39
[2025-05-08] MEDS: APIXABAN 5 MG TAB PO SCH (14:44)
[2025-05-08] MEDS ORDERED: APIXABAN 5 MG TAB PO SCH (22:00)
--- NOTE | 2025-05-08 23:14 | DVHPN2 ---
Progress Note - Dictate Date Seen: May 08, 2025 Medical Necessity Reason Pt with a Central, PICC or Fol: No Subjective Patient seen and examined at bedside. Remains on supplemental oxygen Overnight events reviewed. vital signs Vital Sign Date Time Temp Pulse Resp B/P (MAP) Pulse Ox O2 Delivery O2 Flow Rate FiO2 05/08/25 21:00 98.4 106 16 158/108 (125) 99 98.4 05/08/25 19:37 Nasal Cannula 4.0 05/08/25 19:37 36 Total Intake and Output 05/07/25 05/07/25 05/08/25 15:00 23:00 07:00 Intake Total 804 ml 1130 ml 300 ml Output Total 400 ml 150 ml Balance 804 ml 730 ml 150 ml medications Current Medications Medications Dose Ordered Sig/Liudmila Route Start Time Stop Time Status Last Admin Dose Admin Ondansetron HCl 4 mg Q6HPRN PRN IV 05/05/25 22:00 Hold Morphine Sulfate 2 mg Q4HPRN PRN IV 05/05/25 22:00 Aspirin 81 mg DAILY PO 05/06/25 10:00 05/08/25 10:42 81 MG Atorvastatin Calcium 40 mg HS PO 05/06/25 22:00 05/07/25 22:31 40 MG Nitroglycerin 0.4 mg Q5MINP PRN SL 05/06/25 01:15 Hydralazine HCl 10 mg Q6HR PRN IV 05/06/25 01:15 05/06/25 22:00 10 MG Sodium Chloride 1,000 ml @ 100 mls/hr Q10H IV 05/06/25 08:00 05/08/25 00:13 100 MLS/HR Piperacillin Sod/ Tazobactam Sod 100 ml @ 25 mls/hr Q8HR IV 05/06/25 08:45 05/07/25 22:30 25 MLS/HR Albuterol 2.5 mg Q4HR NEB 05/07/25 02:00 05/08/25 22:09 2.5 MG Ipratropium [place] 0.5 mg Q4HR NEB 05/07/25 02:00 05/08/25 22:09 0.5 MG Methylprednisolone Sodium Succinate 40 mg Q12HR IV 05/08/25 10:00 05/08/25 10:17 40 MG Famotidine 10 mg Q12HR IV 05/07/25 22:00 05/08/25 10:17 10 MG Apixaban 5 mg BID PO 05/15/25 22:00 Apixaban 10 mg BID PO 05/08/25 14:00 05/15/25 13:59 05/08/25 14:44 10 MG objective Gen.: Patient lying in bed in no apparent distress. On supplemental oxygen. Head: Normocephalic, atraumatic. Eyes: EOMI/PERRLA. Ears: Normal hearing. Normal anatomy. Neck/trachea: Trachea midline, supple. Nose: Normal external anatomy. Mouth: Moist mucous membranes. Chest: Decreased air entry bilaterally. No wheezing or rhonchi. Cardiovascular: Positive S1, positive S2. Regular rate and rhythm. Abdomen: Positive bowel sounds in all 4 quadrants. Soft, non-tender, non- distended. : Deferred. Rectal: Deferred. Skin: Warm, dry. Intact. Extremities: 2+ radial pulses bilaterally. No lower extremity edema. Neuro: Awake, alert, oriented x3. No gross motor or sensory deficits. Cranial nerves II through XII intact. Gait not assessed. laboratory and microbiology Laboratory Tests 05/08/25 03:13 Test 05/08/25 03:13 Range/Units Serum Glucose 142 H 74-106 mg/dL Assessment/Plan Impression: Acute hypoxic respiratory failure Dependence on supplemental oxygen Chest pain Elevated troponins Right lower extremity DVT Pulmonary nodule, right lower lobe Acute kidney injury Hx of nicotine dependence Pulmonary embolism, bilateral Events: Remains on supplemental oxygen Improved oxygen requirements - on 2 LPM NC Continue to taper O2 as tolerated Patient noted to have dyspnea on exertion. CT angiogram on 05/06/25 reviewed, demonstrates bilateral pulmonary emboli and evidence of right heart strain. See report for full details. Continue heparin drip for PE/DVT. Continue IV steroids - tapered to q.12 hours Continue antibiotics Continue bronchodilators Incentive spirometry Echocardiogram reviewed, demonstrates RVSP 51 mmHg; EF 55%. Cardiology recs appreciated Updated patient and brother today on plan of care. Disposition per hospitalist. Follow up in Pulmonary office as outpatient after discharge within 1-2 weeks. Labs and imaging reviewed. Rest of plan as noted below. Plan: Supplemental oxygen Titrate to keep O2 sats above 92%. Chest x-ray showed no active disease, no significant change from 04/12/2025. Venous Doppler of bilateral lower extremities revealed subacute-appearing thrombus in the proximal superficial right femoral vein and the visualized right deep femoral vein. CT abdomen and pelvis showed no acute intra-abdominal or pelvic findings. A right lower lobe 1.4-cm subpleural pulmonary nodule is present. Recommend followup CT in approximately 3 months. Heparin drip for DVT and PE. Bronchodilators. Antibiotics IV steroids Follow up Cardiology recs Fluid/salt restriction Monitor renal function. Monitor electrolytes. Supplement as necessary. Monitor ins and outs. Strict ins and outs. Pain control Avoid oversedation DVT prophylaxis. Prognosis: Poor given patient's multiple co-morbidities. Rest of plan per hospitalist and other consultants. Thank you, Dr. Fenton, for allowing me to participate in this patient's care. Further recommendations will depend on the patient's clinical course. Please do not hesitate to contact me if you have any questions or concerns. This medical document was created using an electronic medical record system with [employer] computerized dictation system. Although these documentations are being carefully reviewed, there may still be some phonetic and typographical changes. The errors are purely typographical, due to imperfection on the software program, and do not reflect any compromise in the patient's medical care. Plan discussed with: Patient, Other (DEV Walter) JAMES BARRERA [facility] May 08, 2025 23:14
--- NOTE | 2025-05-08 23:51 | DVHPN2 ---
Progress Note - Dictate Date Seen: May 08, 2025 Medical Necessity Reason Pt with a Central, PICC or Fol: No Subjective Patient was seen and evaluated in follow up. Patient has been downgraded to tele bed. Patient is on 4 LPM NC. WBC 14. Hepatitis B antigen and Hepatitis C antibody are negative. Patient to transition over to [facility]. Telemetry reviewed. vital signs Vital Sign Date Time Temp Pulse Resp B/P (MAP) Pulse Ox O2 Delivery O2 Flow Rate FiO2 05/08/25 21:00 98.4 106 16 158/108 (125) 99 98.4 05/08/25 19:37 Nasal Cannula 4.0 05/08/25 19:37 36 Total Intake and Output 05/07/25 05/07/25 05/08/25 15:00 23:00 07:00 Intake Total 804 ml 1130 ml 300 ml Output Total 400 ml 150 ml Balance 804 ml 730 ml 150 ml medications Current Medications Medications Dose Ordered Sig/Liudmila Route Start Time Stop Time Status Last Admin Dose Admin Ondansetron HCl 4 mg Q6HPRN PRN IV 05/05/25 22:00 Hold Morphine Sulfate 2 mg Q4HPRN PRN IV 05/05/25 22:00 Aspirin 81 mg DAILY PO 05/06/25 10:00 05/08/25 10:42 81 MG Atorvastatin Calcium 40 mg HS PO 05/06/25 22:00 05/08/25 22:58 40 MG Nitroglycerin 0.4 mg Q5MINP PRN SL 05/06/25 01:15 Hydralazine HCl 10 mg Q6HR PRN IV 05/06/25 01:15 05/06/25 22:00 10 MG Sodium Chloride 1,000 ml @ 100 mls/hr Q10H IV 05/06/25 08:00 05/08/25 00:13 100 MLS/HR Piperacillin Sod/ Tazobactam Sod 100 ml @ 25 mls/hr Q8HR IV 05/06/25 08:45 05/08/25 22:59 25 MLS/HR Albuterol 2.5 mg Q4HR NEB 05/07/25 02:00 05/08/25 22:09 2.5 MG Ipratropium [place] 0.5 mg Q4HR NEB 05/07/25 02:00 05/08/25 22:09 0.5 MG Methylprednisolone Sodium Succinate 40 mg Q12HR IV 05/08/25 10:00 05/08/25 22:59 40 MG Famotidine 10 mg Q12HR IV 05/07/25 22:00 05/08/25 22:59 10 MG Apixaban 5 mg BID PO 05/15/25 22:00 Apixaban 10 mg BID PO 05/08/25 14:00 05/15/25 13:59 05/08/25 22:58 10 MG objective GENERAL: Alert and oriented x 3. No acute distress. Thin appearing. EYES: PERRL, EOMI. Anicteric. HENT: Moist mucous membranes. LUNGS: Decreased breath sounds. CARDIOVASCULAR: Regular rate and rhythm. ABDOMEN: Soft, nontender and nondistended. EXTREMITIES: No edema. NEUROLOGIC: No focal neurological deficits. SKIN: Warm, dry. laboratory and microbiology Laboratory Tests 05/08/25 03:13 Test 05/08/25 03:13 Range/Units Serum Glucose 142 H 74-106 mg/dL Problem List Acute respiratory failure. Acute B/L PE. Acute RLE DVT. RV strain. NSTEMI. Chest pain. Lactic acidemia. COPD. HTN. Assessment/Plan Continued all current supportive medical care. Aspirin, Lipitor. Heparin drip per pharmacy. IV Hydralazine for SBP >150. Morphine for pain management. IV antibiotics as ordered. Additional plan as per the hospital course. Plan discussed with: Patient ARYA WELLS MD May 08, 2025 23:51
[2025-05-09] VITALS (20 sets, daily range): BP systolic 137–163; BP diastolic 88–119; PULSE 62–114; RESP 16–22; TEMP 97.5–98.3; O2SAT 88–100
[2025-05-09 03:19] LABS: Hematocrit 32.1 % (41.0-53.0); Hemoglobin 10.5 g/dL (13.5-17.5); Mean Corpuscular Hemoglobin 27.8 pg (28.0-32.0); Mean Corpuscular Volume 85.2 fL (80.0-100.0); Nucleated Red Blood Cells % 0.1 %
[2025-05-09 03:21] LABS: INR 1.08 (0.9-1.15); Partial Thromboplastin Time 30.8 SEC (24.5-34.5); Prothrombin Time 11.4 sec (9.3-11.8)
--- NOTE | 2025-05-09 17:42 | DVHPN2 ---
Progress Note - Dictate Date Seen: May 09, 2025 Medical Necessity Reason Pt with a Central, PICC or Fol: No Subjective Patient was seen and evaluated in follow up. Patient is on 4 LPM NC. Patient is complaining of generalized discomfort. Patient is hypertensive 152/108. WBC 12.3. Telemetry reviewed. vital signs Vital Sign Date Time Temp Pulse Resp B/P (MAP) Pulse Ox O2 Delivery O2 Flow Rate FiO2 05/09/25 13:00 97.7 78 20 152/108 (123) 88 97.7 05/09/25 09:40 Nasal Cannula* 4 36 Total Intake and Output 05/08/25 05/08/25 05/09/25 15:00 23:00 07:00 Intake Total 115 ml 700 ml 400 ml Output Total 150 ml Balance 115 ml 550 ml 400 ml medications Current Medications Medications Dose Ordered Sig/Liudmila Route Start Time Stop Time Status Last Admin Dose Admin Ondansetron HCl 4 mg Q6HPRN PRN IV 05/05/25 22:00 Hold Morphine Sulfate 2 mg Q4HPRN PRN IV 05/05/25 22:00 Aspirin 81 mg DAILY PO 05/06/25 10:00 05/09/25 10:48 81 MG Atorvastatin Calcium 40 mg HS PO 05/06/25 22:00 05/08/25 22:58 40 MG Nitroglycerin 0.4 mg Q5MINP PRN SL 05/06/25 01:15 Hydralazine HCl 10 mg Q6HR PRN IV 05/06/25 01:15 05/06/25 22:00 10 MG Sodium Chloride 1,000 ml @ 100 mls/hr Q10H IV 05/06/25 08:00 05/09/25 10:49 100 MLS/HR Piperacillin Sod/ Tazobactam Sod 100 ml @ 25 mls/hr Q8HR IV 05/06/25 08:45 05/09/25 05:23 25 MLS/HR Albuterol 2.5 mg Q4HR NEB 05/07/25 02:00 05/09/25 09:39 2.5 MG Ipratropium [place] 0.5 mg Q4HR NEB 05/07/25 02:00 05/09/25 09:39 0.5 MG Methylprednisolone Sodium Succinate 40 mg Q12HR IV 05/08/25 10:00 05/09/25 10:48 40 MG Famotidine 10 mg Q12HR IV 05/07/25 22:00 05/09/25 10:48 10 MG Apixaban 5 mg BID PO 05/15/25 22:00 Apixaban 10 mg BID PO 05/08/25 14:00 05/15/25 13:59 05/09/25 10:49 10 MG objective GENERAL: Alert and oriented x 3. No acute distress. Thin appearing. EYES: PERRL, EOMI. Anicteric. HENT: Moist mucous membranes. LUNGS: Decreased breath sounds. CARDIOVASCULAR: Regular rate and rhythm. ABDOMEN: Soft, nontender and nondistended. EXTREMITIES: No edema. NEUROLOGIC: No focal neurological deficits. SKIN: Warm, dry. laboratory and microbiology Laboratory Tests 05/09/25 03:00 05/08/25 03:13 Test 05/08/25 03:13 Range/Units Serum Glucose 142 H 74-106 mg/dL Problem List Acute respiratory failure. Acute B/L PE. Acute RLE DVT. RV strain. NSTEMI. Chest pain. Lactic acidemia. COPD. HTN. Assessment/Plan Continued all current supportive medical care. Eliquis. Aspirin. IV Solu-Medrol. Nitro SL. Morphine for pain management. IV antibiotics as ordered. Additional plan as per the hospital course. Plan discussed with: Patient ARYA WELLS MD May 09, 2025 13:34
--- NOTE | 2025-05-09 23:55 | DVHPN2 ---
Progress Note - Dictate Date Seen: May 09, 2025 Medical Necessity Reason Pt with a Central, PICC or Fol: No Subjective Patient seen and examined at bedside. Remains on supplemental oxygen Overnight events reviewed. vital signs Vital Sign Date Time Temp Pulse Resp B/P (MAP) Pulse Ox O2 Delivery O2 Flow Rate FiO2 05/09/25 20:00 72 18 98 Nasal Cannula* 4 36 05/09/25 18:05 137/90 (106) 05/09/25 16:46 98.1 98.1 Total Intake and Output 05/08/25 05/08/25 05/09/25 15:00 23:00 07:00 Intake Total 115 ml 700 ml 400 ml Output Total 150 ml Balance 115 ml 550 ml 400 ml objective Gen.: Patient lying in bed in no apparent distress. On supplemental oxygen. Head: Normocephalic, atraumatic. Eyes: EOMI/PERRLA. Ears: Normal hearing. Normal anatomy. Neck/trachea: Trachea midline, supple. Nose: Normal external anatomy. Mouth: Moist mucous membranes. Chest: Decreased air entry bilaterally. No wheezing or rhonchi. Cardiovascular: Positive S1, positive S2. Regular rate and rhythm. Abdomen: Positive bowel sounds in all 4 quadrants. Soft, non-tender, non- distended. : Deferred. Rectal: Deferred. Skin: Warm, dry. Intact. Extremities: 2+ radial pulses bilaterally. No lower extremity edema. Neuro: Awake, alert, oriented x3. No gross motor or sensory deficits. Cranial nerves II through XII intact. Gait not assessed. laboratory and microbiology Laboratory Tests 05/09/25 03:00 05/08/25 03:13 Test 05/08/25 03:13 Range/Units Serum Glucose 142 H 74-106 mg/dL Assessment/Plan Impression: Acute hypoxic respiratory failure Dependence on supplemental oxygen Chest pain Elevated troponins Right lower extremity DVT Pulmonary nodule, right lower lobe Acute kidney injury Hx of nicotine dependence Pulmonary embolism, bilateral Events: Remains on supplemental oxygen Improved oxygen requirements - on 2 LPM NC Continue to taper O2 as tolerated Patient noted to have dyspnea on exertion. CT angiogram on 05/06/25 reviewed, demonstrates bilateral pulmonary emboli and evidence of right heart strain. See report for full details. Continue heparin drip for PE/DVT. Continue antibiotics Continue bronchodilators Incentive spirometry Echocardiogram reviewed, demonstrates RVSP 51 mmHg; EF 55%. Cardiology recs appreciated Plan for SNF placement Disposition per hospitalist. Follow up in Pulmonary office as outpatient after discharge within 1-2 weeks. Labs and imaging reviewed. Rest of plan as noted below. Plan: Supplemental oxygen Titrate to keep O2 sats above 92%. Chest x-ray showed no active disease, no significant change from 04/12/2025. Venous Doppler of bilateral lower extremities revealed subacute-appearing thrombus in the proximal superficial right femoral vein and the visualized right deep femoral vein. CT abdomen and pelvis showed no acute intra-abdominal or pelvic findings. A right lower lobe 1.4-cm subpleural pulmonary nodule is present. Recommend followup CT in approximately 3 months. Heparin drip for DVT and PE. Bronchodilators. Antibiotics IV steroids - tapered to q.12 hours Follow up Cardiology recs Fluid/salt restriction Monitor renal function. Monitor electrolytes. Supplement as necessary. Monitor ins and outs. Strict ins and outs. Pain control Avoid oversedation DVT prophylaxis. Prognosis: Poor given patient's multiple co-morbidities. Rest of plan per hospitalist and other consultants. Thank you, Dr. Fenton, for allowing me to participate in this patient's care. Further recommendations will depend on the patient's clinical course. Please do not hesitate to contact me if you have any questions or concerns. This medical document was created using an electronic medical record system with [employer] dictation system. Although these documentations are being carefully reviewed, there may still be some phonetic and typographical changes. The errors are purely typographical, due to imperfection on the software program, and do not reflect any compromise in the patient's medical care. Plan discussed with: Patient, Other (DEV Weiner) JAMES BARRERA [facility] May 09, 2025 23:55
[2025-05-15] MEDS ORDERED: APIXABAN 5 MG TAB PO SCH (22:00)
--- NOTE | 2025-05-16 06:52 | ECG ---
[facility] Test Date: 2025-05-05 Test Time: 23:02:54 Pat Name: DAJA DIOR Department: [facility] ED Room: [facility]6T B Gender: M [employer] Operator: krysten : 1950 Requested By: THEO SALDANA Order Number: [id number] Reading MD: Adrián Wilcox Measurements Intervals [place] Rate: 99 P: 80 VA: 140 QRS: 250 QRSD: 99 T: 24 QT: 344 QTc: 442 Interpretive Statements Sinus rhythm Probable left atrial enlargement Right superior axis Consider right ventricular hypertrophy Electronically Signed On 05-16-2025 17:34:31 PST by Adrián Wilcox Please click the below link to view image of tracing.
== END 2025-05-09 21:40 | DRG 280 ==
LOC: ER 15:46 → EDBD 15:46 → OVERFLOW 05-06 01:08 → TELE-WESTW 05-06 05:08 → OBSVTOIN 05-06 21:26 → ICU WEST 05-06 23:40 → TELE-WESTW 05-07 21:40
PROVIDERS: ADMIT Hospitalist; ATTEND Hospitalist
PROC: 5A0935A Assistance with Respiratory Ventilation, Less than 24 Consecutive Hours, High Flow/Velocity Cannula (ICD-10-PCS; principal; 2025-05-06)
DX: I21.4 Non-ST elevation (NSTEMI) myocardial infarction (principal); I26.99 Other pulmonary embolism without acute cor pulmonale; J96.01 Acute respiratory failure with hypoxia; N17.9 Acute kidney failure, unspecified; I82.411 Acute embolism and thrombosis of right femoral vein; I11.0 Hypertensive heart disease with heart failure; J44.89 Other specified chronic obstructive pulmonary disease; F03.90 Unspecified dementia, unspecified severity, without behavioral disturbance, psychotic disturbance, mood disturbance, and anxiety; E87.20 Acidosis, unspecified; Z86.73 Personal history of transient ischemic attack (TIA), and cerebral infarction without residual deficits; Z87.891 Personal history of nicotine dependence; Z82.49 Family history of ischemic heart disease and other diseases of the circulatory system; Z99.81 Dependence on supplemental oxygen; Z79.899 Other long term (current) drug therapy; T38.0X5A Adverse effect of glucocorticoids and synthetic analogues, initial encounter; D72.829 Elevated white blood cell count, unspecified
CPT/HCPCS: 36415; 36600; 71045; 71046; 71275; 74176; 76604; 80048; 80053; 82805; 83605; 83735; 84484; 85025; 85379; 85610; 85730; 86803; 87040; 87081; 87340; 93005; 93306; 93970; 94640; G0378; J2543; J3490